=== PATIENT | male | born 1970 | race Caucasian/White ===

== ENCOUNTER 2017-10-15 18:43 | Emergency (ER) | payer SELFPAY ==
--- NOTE | 2017-10-15 19:29 | ER Document Report ---
HPI - HPI Patient complains to provider of: Groin and waist rash Onset: Other - 1.5 months Onset/Duration: Gradual Pain Level: 2 Context: 47-year-old male complaining of itchy skin rash that is from his waist to his upper thighs. He has tried everything that he knows of which is not helping. He did try antifungal cream which did not help. He has not seen a wealth management director. It itches 24 7. States it started after buying some underwear at [employer] Associated Symptoms: None Exacerbated by: Denies Relieved by: Denies Similar symptoms previously: No Recently seen / treated by doctor: No - ROS ROS below otherwise negative: Yes Systems Reviewed and Negative: Yes All other systems reviewed and negative Past Medical History - General Information source: Patient - Social History Smoking Status: Current Every Day Smoker Frequency of alcohol use: None Drug Abuse: None Lives with: Family Family History: Reviewed & Not Pertinent GI Medical History: Reports: Hx Cirrhosis - Hepatitis C Surgical Hx: Negative Vertical Provider Document - CONSTITUTIONAL Agree With Documented VS: Yes Exam Limitations: No Limitations - INFECTION CONTROL TRAVEL OUTSIDE OF THE [place] IN LAST 30 DAYS: No - HEENT HEENT: Normocephalic. negative: Conjuctival Injection - NECK Neck: Supple - MUSCULOSKELETAL/EXTREMETIES Musculoskeletal/Extremeties: MAEW - NEURO Level of Consciousness: Awake, Alert - DERM Integumentary: Rash - Buttocks and abdominal rash extending to the upper thighs excluding the penis and the scrotum, inflamed red rims-lacy type rash with clear centers Course - Vital Signs Vital signs: Temp Pulse Resp BP Pulse Ox 98.2 F 106 H 17 116/74 96 10/15/17 18:47 10/15/17 18:47 10/15/17 18:47 10/15/17 18:47 10/15/17 18:47 Discharge - Discharge Clinical Impression: Rash Condition: Good Disposition: HOME, SELF-CARE Instructions: Use of Diphenhydramine, Skin Fungus ([facility]), Steroid Medication Additional Instructions: Call and schedule appointment with wealth management director, he may do a skin scraping to confirm the diagnosis try over the counter antifungal cream to 1 lesion three times per day to see if it helps, for 1 week prednisone may calm the inflammation [id number] Benadryl for itching Return to the emergency room any concerns Since you have hepatitis C and cirrhosis the oral antifungals may not be indicated, discussed this with the wealth management director. Prescriptions: Prednisone [Deltasone 10 mg Tablet] 10 mg PO ASDIR PRN #21 tablet PRN Reason: Referrals: STEPHANIE MORROW DO [ACTIVE STAFF] - Follow up in 1 week
[2017-10-15] MEDS ORDERED: PREDNISONE 20 MG TABLET PO ONE (19:35)
[2017-10-15 19:59] VITALS: BP 144/91
== END 2017-10-15 19:58 | disposition home or self-care (01) ==
LOC: ER 18:43
DX: R21 Rash and other nonspecific skin eruption (principal); F17.200 Nicotine dependence, unspecified, uncomplicated
CPT/HCPCS: 99282; J7512

== ENCOUNTER 2017-11-30 14:28 | Emergency (ER) | payer SELFPAY ==
[2017-11-30 14:37] VITALS: BP 138/78
--- NOTE | 2017-11-30 14:37 | ER Document Report ---
HPI - HPI Patient complains to provider of: recurrent itchy rash Onset: Last week Onset/Duration: Gradual Pain Level: 3 Context: 47 yo male that I tx with prednisone in september for exzema type groin rash is back again with the recurrnet rash and now it is on anterior knees. He did not go to the phys assistant that I rec. No fever. Associated Symptoms: None Exacerbated by: Denies Relieved by: Other - steroid Similar symptoms previously: Yes Recently seen / treated by doctor: No - ROS ROS below otherwise negative: Yes Systems Reviewed and Negative: Yes All other systems reviewed and negative Past Medical History - General Information source: Patient - Social History Smoking Status: Current Every Day Smoker Frequency of alcohol use: None Drug Abuse: None Lives with: Spouse/Significant other Family History: Reviewed & Not Pertinent Renal/ Medical History: Denies: Hx Peritoneal Dialysis GI Medical History: Reports: Hx Cirrhosis - Hepatitis C Surgical Hx: Negative Vertical Provider Document - CONSTITUTIONAL Agree With Documented VS: Yes Exam Limitations: No Limitations General Appearance: No Apparent Distress - INFECTION CONTROL TRAVEL OUTSIDE OF THE [place] IN LAST 30 DAYS: No - HEENT HEENT: Normal ENT Exam, Normocephalic - NECK Neck: Supple - RESPIRATORY Respiratory: Breath Sounds Normal, No Respiratory Distress - CARDIOVASCULAR Cardiovascular: Regular Rate, Regular Rhythm - NEURO Level of Consciousness: Awake - DERM Integumentary: Rash - scaley red psoriasis or eczema to lower trunk and anterior knees. pruritic Discharge - Discharge Clinical Impression: Chronic rash Condition: Good Disposition: HOME, SELF-CARE Instructions: Atopic Dermatitis (Eczema) ([facility]), Itching, Nonspecific ([facility]), Psoriasis ([facility]), Steroid Medication Additional Instructions: Call and schedule an appointment with the phys assistant Charlie for itching Steroid cream Steroid taper Return to the emergency room for any concerns Prescriptions: Hydrocortisone Valerate 60 gm TP DAILY #60 oint..gm. Hydroxyzine Pamoate [Vistaril 50 mg Capsule] 50 mg PO TIDP PRN #60 capsule PRN Reason: Referrals: STEPHANIE MORROW DO [ACTIVE STAFF] - 12/01/17
[2017-11-30] MEDS ORDERED: PREDNISONE 20 MG TABLET PO ONE (15:19)
[2017-11-30] MEDS ORDERED: HYDROXYZINE PAMOATE 50 MG CAPSULE PO ONE (15:22)
== END 2017-11-30 15:38 | disposition home or self-care (01) ==
LOC: ER 14:28
DX: R21 Rash and other nonspecific skin eruption (principal); L29.8 Other pruritus; F17.200 Nicotine dependence, unspecified, uncomplicated
CPT/HCPCS: 99282; J7512

== ENCOUNTER 2017-12-29 17:20 | Emergency (ER) | payer SELFPAY ==
[2017-12-29 17:36] VITALS: BP 123/78
--- NOTE | 2017-12-29 18:03 | ER Document Report ---
HPI - HPI Patient complains to provider of: Persistent rash Onset: Other - Months Pain Level: 1 Context: 47-year-old male returns for persistent rash. I have seen 2 times before and he states the prednisone always resolve the rash. We discussed possible psoriasis and he has been unable to get an appointment with the business development coordinator. This rash looks a little different and there is itching the most at night. He is very frustrated. Associated Symptoms: None Exacerbated by: Denies Relieved by: Denies Similar symptoms previously: Yes Recently seen / treated by doctor: Yes - ROS ROS below otherwise negative: Yes Systems Reviewed and Negative: Yes All other systems reviewed and negative Past Medical History - General Information source: Patient - Social History Smoking Status: Unknown if Ever Smoked Frequency of alcohol use: None Drug Abuse: None Lives with: Family Family History: Reviewed & Not Pertinent Renal/ Medical History: Denies: Hx Peritoneal Dialysis GI Medical History: Reports: Hx Cirrhosis - Hepatitis C Surgical Hx: Negative Vertical Provider Document - CONSTITUTIONAL Agree With Documented VS: Yes Exam Limitations: No Limitations - INFECTION CONTROL TRAVEL OUTSIDE OF THE [place] IN LAST 30 DAYS: No - RESPIRATORY Respiratory: Breath Sounds Normal, No Respiratory Distress - CARDIOVASCULAR Cardiovascular: Regular Rate, Regular Rhythm - DERM Integumentary: Rash - Isolated red round lesions to both anterior knees, axillas , groin and buttocks. He states that sometimes he scratches them and gets liquid out of them. We discussed possible scabies or impetigo and treating him for both Course - Re-evaluation Re-evalutation: 12/29/17 18:00 I have seen this patient 2 other times the prednisone clears it up, today it looks more like possible scabies or impetigo he has it in his axilla or groin and anterior knees - Vital Signs Vital signs: Temp Pulse Resp BP Pulse Ox 98.2 F 89 16 123/78 97 12/29/17 17:35 12/29/17 17:35 12/29/17 17:35 12/29/17 17:35 12/29/17 17:35 Discharge - Discharge Clinical Impression: Rash, scabies versus impetigo Condition: Good Disposition: HOME, SELF-CARE Instructions: Anti-Mite Skin Creams, Cephalexin ([facility]), Impetigo ([facility]), Scabies ([facility]) Additional Instructions: Element cream from neck to toes in between her fingers and toes in the groin also, wash off in 12 hours Antibiotics in case this is secondary infection or impetigo Schedule an appointment with a business development coordinator Prescriptions: Cephalexin Monohydrate [Keflex 500 mg Capsule] 500 mg PO QID #28 capsule Permethrin [Elimite] 60 gm TP ONCE PRN 1 Days cream.gm. PRN Reason:
== END 2017-12-29 18:17 | disposition home or self-care (01) ==
LOC: ER 17:20
DX: R21 Rash and other nonspecific skin eruption (principal)
CPT/HCPCS: 99282

== ENCOUNTER 2018-01-17 04:25 | Emergency (ER) | payer SELFPAY ==
[2018-01-17] MEDS ORDERED: DIPHENHYDRAMINE HCL 50 MG CAPSULE PO ONE (06:20)
[2018-01-17] MEDS ORDERED: SULFAMETHOXAZOLE/TRIMETHOPRIM 800-160 MG TABLET PO ONE (06:20)
[2018-01-17] MEDS ORDERED: CEPHALEXIN 500 MG CAPSULE PO ONE (06:20)
[2018-01-17] MEDS ORDERED: FAMOTIDINE 20 MG TABLET PO ONE (06:21)
[2018-01-17] MEDS ORDERED: IBUPROFEN 800 MG TABLET PO ONE (06:21)
--- NOTE | 2018-01-17 06:22 | ER Document Report ---
ED Skin Rash/Insect Bite/Abscs - General Chief Complaint: Insect Bite Stated Complaint: POSSIBLE INSECT BITE Time Seen by Provider: 01/17/18 06:07 Notes: 47-year-old male to the emergency department chief complaint of possible bug bite versus cellulitis on the right upper extremity. States that he has been camping. Noticed some redness and swelling to the right forearm. Seems to be getting worse. TRAVEL OUTSIDE OF THE [place] IN LAST 30 DAYS: No - HPI Patient complains to provider of: Skin rash/lesion, Tender/swollen area, Insect bite Onset: Yesterday Onset/Duration: Gradual, Worse Quality of pain: Throbbing - Related Data Allergies/Adverse Reactions: No Known Allergies Allergy (Verified 11/30/17 14:33) Past Medical History - General Information source: Patient - Social History Smoking Status: Current Every Day Smoker Cigarette use (# per day): Yes Frequency of alcohol use: None Drug Abuse: Marijuana Lives with: Spouse/Significant other Family History: Reviewed & Not Pertinent Patient has suicidal ideation: No Patient has homicidal ideation: No - Medical History Medical History: Negative Renal/ Medical History: Denies: Hx Peritoneal Dialysis GI Medical History: Reports: Hx Cirrhosis - Hepatitis C Past Surgical History: Reports: Hx Cholecystectomy, Hx Orthopedic Surgery - Left hand Review of Systems - Review of Systems Constitutional: denies: Fever, Malaise, Weakness EENT: denies: Throat pain, Difficulty swallowing, Mouth pain Cardiovascular: denies: Chest pain, Palpitations, Heart racing Respiratory: denies: Hurts to breathe, Short of breath, Wheezing Musculoskeletal: See HPI. denies: Muscle pain, Muscle stiffness Skin: See HPI, Change in color, Lesions, Rash Physical Exam - Vital signs Vitals: Temp Pulse Resp BP Pulse Ox 98.2 F 96 18 134/79 H 98 01/17/18 04:34 01/17/18 04:34 01/17/18 04:34 01/17/18 04:34 01/17/18 04:34 Interpretation: Normal - General General appearance: Appears well, Alert - Respiratory Respiratory status: No respiratory distress Chest status: Nontender Breath sounds: Normal Chest palpation: Normal - Cardiovascular Rhythm: Regular Heart sounds: Normal auscultation Murmur: No - Extremities General upper extremity: Normal inspection, Nontender, Tender, Normal color, Normal ROM, Normal temperature, Other - Tenderness in the forearm area on the right General lower extremity: Normal inspection, Nontender, Normal color, Normal ROM , Normal temperature, Normal weight bearing. No: Amy's sign - Skin Skin Temperature: Warm Skin Moisture: Dry Skin Color: Other - Is a red, warm, indurated area measuring approximately 10 cm in diameter on the right forearm. There does not appear to be any abscess. No active drainage. No obvious bite hernandez. Patient does have psoriatic lesions on both knees and elbows. Course - Re-evaluation Re-evalutation: 01/17/18 06:25 At this time we will treat as a possible cellulitis. Cool compress, antibiotics , histamines, close observation of progression and return if getting worse. - Vital Signs Vital signs: Temp Pulse Resp BP Pulse Ox 98.2 F 96 18 134/79 H 98 01/17/18 04:34 01/17/18 04:34 01/17/18 04:34 01/17/18 04:34 01/17/18 04:34 Discharge - Discharge Clinical Impression: Cellulitis of arm, right Condition: Good Disposition: HOME, SELF-CARE Instructions: Cellulitis ([facility]) Additional Instructions: Keep a close eye on the lesion. If things are getting worse and spreading rapidly please return for repeat evaluation. Prescriptions: Cephalexin Monohydrate [Keflex 500 mg Capsule] 500 mg PO QID 7 Days #28 capsule Sulfamethoxazole/Trimethoprim [Bactrim Ds Tablet] 1 each PO BID 7 Days #14 tablet Forms: Return to Work
[2018-01-17 07:04] VITALS: BP 124/79
== END 2018-01-17 06:45 | disposition home or self-care (01) ==
LOC: ER 04:25
DX: L03.113 Cellulitis of right upper limb (principal); F17.210 Nicotine dependence, cigarettes, uncomplicated
CPT/HCPCS: 99282

== ENCOUNTER 2018-01-17 18:01 | Emergency (ER) | payer SELFPAY ==
[2018-01-17 18:08] VITALS: BP 121/63
[2018-01-17] MEDS ORDERED: VANCOMYCIN HCL INJ 1000 MG VIAL IV ONE (19:05)
--- NOTE | 2018-01-17 19:07 | ER Document Report ---
ED Medical Screen (RME) - General Chief Complaint: Skin Problem Stated Complaint: ARM SWOLLEN/RED Time Seen by Provider: 01/17/18 19:03 Mode of Arrival: Ambulatory Information source: Patient Notes: This is a 47-year-old man with a history of GERD, psoriasis, 2 pack per day smoker presents to the emergency room with worsening cellulitis of the right forearm. Patient states he was camping and started developing redness of the right arm. He was seen this morning and placed on oral antibiotics and the area of erythema was marked off. He presents back to the emergency room with spreading redness beyond limits of the boundary marked as well as increased pain. Patient does have erythema and warmth over the area as well as a possible puncture kindra and he has an area of induration and tenderness concerning for developing abscess. TRAVEL OUTSIDE OF THE [place] IN LAST 30 DAYS: No - Related Data Allergies/Adverse Reactions: No Known Allergies Allergy (Verified 01/17/18 18:02) Past Medical History Renal/ Medical History: Denies: Hx Peritoneal Dialysis GI Medical History: Reports: Hx Cirrhosis - Hepatitis C Past Surgical History: Reports: Hx Cholecystectomy, Hx Orthopedic Surgery - Left hand Physical Exam - Vital signs Vitals: Temp Pulse Resp BP Pulse Ox 98.1 F 90 18 121/63 96 01/17/18 18:07 01/17/18 18:07 01/17/18 18:07 01/17/18 18:07 01/17/18 18:07 Course - Vital Signs Vital signs: Temp Pulse Resp BP Pulse Ox 98.1 F 90 18 121/63 96 01/17/18 18:07 01/17/18 18:07 01/17/18 18:07 01/17/18 18:07 01/17/18 18:07
[2018-01-17 19:51] LABS: ABSOLUTE EOSINOPHILS # (AUTO) 0.3 10^3/uL (0.0-0.6); ABSOLUTE MONOCYTES (AUTO) 0.8 10^3/uL (0.1-1.4); ABSOLUTE NEUT (AUTO) 7.5 10^3/uL (1.7-8.2); BASOPHILS % (AUTO) 0.4 % (0-2); EOSINOPHILS % (AUTO) 2.4 % (0-6); HEMATOCRIT 41.4 % (37.9-51.0); HEMOGLOBIN 14.2 g/dL (13.5-17.0); LYMPHOCYTES % (AUTO) 18.5 % (13-45); MEAN CORPUSCULAR HEMOGLOBIN 30.8 pg (27.0-33.4); MEAN CORPUSCULAR HGB CONC 34.4 g/dL (32.0-36.0); MEAN CORPUSCULAR VOLUME 90 fl (80-97); MONOCYTES % (AUTO) 7.6 % (3-13); PLATELET COUNT 316 10^3/uL (150-450); RED BLOOD COUNT 4.62 10^6/uL (4.35-5.55); SEGMENTED NEUTROPHILS % (AUTO) 71.1 % (42-78); TOTAL CELLS COUNTED % (AUTO) 100 %; WHITE BLOOD COUNT 10.6 10^3/uL (4.0-10.5)
[2018-01-17] MEDS ORDERED: MORPHINE SULFATE 10 MG/ML INJ IV ONE ×2 (19:54→21:45)
[2018-01-17] MEDS ORDERED: ONDANSETRON HCL INJ/PF 4 MG/2 ML SDV IV ONE (19:54)
[2018-01-17 20:06] LABS: ALANINE AMINOTRANSFERASE 54 U/L (21-72); ALBUMIN 3.8 g/dL (3.5-5.0); ALKALINE PHOSPHATASE 212 U/L (38-126); ANION GAP 10 (5-19); ASPARTATE AMINO TRANSFERASE 30 U/L (17-59); BILIRUBIN,DIRECT 0.2 mg/dL (0.0-0.4); BILIRUBIN,TOTAL 0.7 mg/dL (0.2-1.3); BLOOD UREA NITROGEN 14 mg/dL (7-20); CARBON DIOXIDE 24 mmol/L (22-30); CHLORIDE 106 mmol/L (98-107); GLUCOSE 92 mg/dL (75-110); POTASSIUM 4.2 mmol/L (3.6-5.0); SODIUM 139.9 mmol/L (137-145); TOTAL PROTEIN 6.9 g/dL (6.3-8.2)
--- NOTE | 2018-01-17 23:11 | RADIOLOGY REPORT (SQ) ---
EXAM DESCRIPTION: US EXTREMITY MUSCULOSKELETAL LIMITED COMPLETED DATE/TME: 01/17/2018 19:53 CLINICAL HISTORY: 47 years, Male, right forearm edema and erythema. COMPARISON: None. TECHNIQUE: Real-time sonographic images of the right forearm obtained. FINDINGS: In the right forearm there is subcutaneous edema. No well-defined fluid collection. Mild increased vascularity on incidental color Doppler imaging. IMPRESSION: 1. Edema and increased vascularity of the soft tissues of the forearm could be seen with cellulitis. 2. No well-defined fluid collection to suggest abscess formation at this time 2010 [employer]- All Rights Reserved
--- NOTE | 2018-01-17 23:22 | ER Document Report ---
ED Skin Rash/Insect Bite/Abscs <VISHAL JIN - Last Filed: 01/17/18 23:24> - General Mode of Arrival: Ambulatory Information source: Patient TRAVEL OUTSIDE OF THE [place] IN LAST 30 DAYS: No <MIRIAM LINN - Last Filed: 01/18/18 01:45> - General Chief Complaint: Skin Problem Stated Complaint: ARM SWOLLEN/RED Time Seen by Provider: 01/17/18 19:03 Notes: 47-year-old male who presents to the emergency department today with complaints of an infection to his right elbow. Patient was seen here yesterday and had the outline of the infection marked with a marker and the infection has spread significantly past these markings. Patient states the pain has increased. (MIRIAM LINN) - Related Data Allergies/Adverse Reactions: No Known Allergies Allergy (Verified 01/17/18 18:02) Past Medical History - General Information source: Patient - Social History Smoking Status: Current Every Day Smoker Cigarette use (# per day): Yes Chew tobacco use (# tins/day): No Frequency of alcohol use: None Drug Abuse: None Lives with: Family Family History: Reviewed & Not Pertinent Patient has suicidal ideation: No Patient has homicidal ideation: No Renal/ Medical History: Denies: Hx Peritoneal Dialysis GI Medical History: Reports: Hx Cirrhosis - Hepatitis C Past Surgical History: Reports: Hx Cholecystectomy, Hx Orthopedic Surgery - Left hand <MIRIAM LINN - Last Filed: 01/18/18 01:45> Review of Systems - Review of Systems Constitutional: No symptoms reported EENT: No symptoms reported Cardiovascular: No symptoms reported Respiratory: No symptoms reported Gastrointestinal: No symptoms reported Genitourinary: No symptoms reported Male Genitourinary: No symptoms reported Musculoskeletal: No symptoms reported Skin: See HPI, Other - Right elbow redness/pain Hematologic/Lymphatic: No symptoms reported Neurological/Psychological: No symptoms reported -: Yes All other systems reviewed and negative <MIRIAM LINN - Last Filed: 01/18/18 01:45> Physical Exam - Extremities General upper extremity: Other - Right proximal forearm the volar aspect is a large erythematous area, there is a purple drawling around it from earlier today and the erythema has spread beyond that drawing. There is a central area that is indurated and quite tender. It almost appears to be starting point, but I cannot be sure of any fluctuance. I did have an ultrasound done that showed the cellulitis but no fluid collection at this point. <VISHAL JIN - Last Filed: 01/17/18 23:24> <MIRIAM LINN - Last Filed: 01/18/18 01:45> - Vital signs Vitals: Temp Pulse Resp BP Pulse Ox 98.1 F 90 18 121/63 96 01/17/18 18:07 01/17/18 18:07 01/17/18 18:07 01/17/18 18:07 01/17/18 18:07 - Notes Notes: Physical Exam: General: Alert, appears well. HEENT: Normocephalic. Atraumatic. PERRL. Extraocular movements intact. Oropharynx clear. Neck: Supple. Non-tender. Respiratory: No respiratory distress. Clear and equal breath sounds bilaterally. Cardiovascular: Regular rate and rhythm. Abdominal: Normal Inspection. Non-tender. No distension. Normal Bowel Sounds. Back: Non-tender. No deformity or step off. Extremities: Moves all four extremities. Upper extremities: Lower extremities: Normal inspection. No edema. Normal ROM. Neurological: Normal cognition. AAOx4. Normal speech. Psychological: Normal affect. Normal Mood. Skin: Warm. Dry. Normal color. (MIRIAM LINN) Course - Laboratory Result Diagrams: 01/17/18 19:22 01/17/18 19:22 <VISHAL JIN - Last Filed: 01/17/18 23:24> - Laboratory Result Diagrams: 01/17/18 19:22 01/17/18 19:22 <MIRIAM LINN - Last Filed: 01/18/18 01:45> - Re-evaluation Re-evalutation: 01/17/18 23:23 The nurse told me the patient was going to leave while I was waiting for the ultrasound report. I told her I would get to him as soon as I could get freed up from some other more pressing patient issues. I was just going to see the patient in the room and found the cleaning people in there, and the nurse had a signed AMA form. I did not get a chance to speak with the patient and tell him what the ultrasound showed, the treatment plan should be, or provide him any pain medications to take. (VISHAL JIN) - Vital Signs Vital signs: Temp Pulse Resp BP Pulse Ox 98.1 F 90 18 121/63 96 01/17/18 18:07 01/17/18 18:07 01/17/18 18:07 01/17/18 18:07 01/17/18 18:07 - Laboratory Laboratory results interpreted by me: 01/17/18 01/17/18 19:22 19:22 WBC 10.6 H Alkaline Phosphatase 212 H Discharge <VISHAL JIN - Last Filed: 01/17/18 23:24> <MIRIAM LINN - Last Filed: 01/18/18 01:45> - Discharge Clinical Impression: Right arm cellulitis Condition: Stable Disposition: AGAINST MEDICAL ADVICE Scribe Attestation: 01/17/18 23:23 I personally performed the services described in the documentation, reviewed and edited the documentation which was dictated to the scribe in my presence, and it accurately records my words and actions. (VISHAL JIN) Scribe Documentation - Scribe Written by Jose F:: Jose F Coyle, 01/18/2018 [id number] acting as scribe for :: Leif <MIRIAM LINN - Last Filed: 01/18/18 01:45>
== END 2018-01-17 23:05 | disposition left against medical advice (07) ==
LOC: ER 18:01
DX: L03.113 Cellulitis of right upper limb (principal); F17.210 Nicotine dependence, cigarettes, uncomplicated; Z53.20 Procedure and treatment not carried out because of patient's decision for unspecified reasons
CPT/HCPCS: 96376; 99281; 96375; 96365; 36415; 87040; 85025; 80053; 83605; 76882; J2270; J2405; J3370

== ENCOUNTER 2018-01-18 16:59 | Inpatient (IN) | payer SELFPAY ==
[2018-01-18] MEDS ORDERED: VANCOMYCIN HCL INJ 1000 MG VIAL IV ONE ×2 (18:22→19:29)
[2018-01-18] MEDS ORDERED: HYDROMORPHONE HCL INJ/PF 2 MG/ML AMPULE IV ONE (18:23)
[2018-01-18] MEDS ORDERED: ONDANSETRON HCL INJ/PF 4 MG/2 ML SDV IV ONE (18:23)
--- NOTE | 2018-01-18 18:27 | ER Document Report ---
ED Medical Screen (RME) - General Chief Complaint: Arm Pain Stated Complaint: ARM PAIN/SWELLING Time Seen by Provider: 01/18/18 18:22 Mode of Arrival: Ambulatory Information source: Patient Notes: This is a 47-year-old man that presents to the emergency room with increasing pain and redness of the right arm and infection. TRAVEL OUTSIDE OF THE [place] IN LAST 30 DAYS: No - Related Data Allergies/Adverse Reactions: No Known Allergies Allergy (Verified 01/17/18 18:02) Past Medical History - Social History Chew tobacco use (# tins/day): No Frequency of alcohol use: None Drug Abuse: None Renal/ Medical History: Denies: Hx Peritoneal Dialysis GI Medical History: Reports: Hx Cirrhosis - Hepatitis C Past Surgical History: Reports: Hx Cholecystectomy, Hx Orthopedic Surgery - Left hand Physical Exam - Vital signs Vitals: Temp Pulse Resp BP Pulse Ox 98.9 F 101 H 18 143/75 H 98 01/18/18 17:25 01/18/18 17:25 01/18/18 17:25 01/18/18 17:25 01/18/18 17:25 Course - Vital Signs Vital signs: Temp Pulse Resp BP Pulse Ox 98.9 F 101 H 18 143/75 H 98 01/18/18 17:25 01/18/18 17:25 01/18/18 17:25 01/18/18 17:25 01/18/18 17:25
[2018-01-18 19:28] LABS: ABSOLUTE BASOPHILS # (AUTO) 0.1 10^3/uL (0.0-0.2); ABSOLUTE EOSINOPHILS # (AUTO) 0.1 10^3/uL (0.0-0.6); ABSOLUTE LYMPHOCYTES (AUTO) 1.8 10^3/uL (0.5-4.7); ABSOLUTE MONOCYTES (AUTO) 0.9 10^3/uL (0.1-1.4); ABSOLUTE NEUT (AUTO) 14.2 10^3/uL (1.7-8.2); BASOPHILS % (AUTO) 0.6 % (0-2); EOSINOPHILS % (AUTO) 0.5 % (0-6); HEMATOCRIT 41.1 % (37.9-51.0); HEMOGLOBIN 14.2 g/dL (13.5-17.0); LYMPHOCYTES % (AUTO) 10.4 % (13-45); MEAN CORPUSCULAR HGB CONC 34.5 g/dL (32.0-36.0); MEAN CORPUSCULAR VOLUME 90 fl (80-97); PLATELET COUNT 358 10^3/uL (150-450); RED BLOOD COUNT 4.58 10^6/uL (4.35-5.55); SEGMENTED NEUTROPHILS % (AUTO) 83.5 % (42-78); TOTAL CELLS COUNTED % (AUTO) 100 %
[2018-01-18] MEDS ORDERED: CEFEPIME 2 GM/D5W RTU 2 GM/50 ML RTUPB IV ONE (19:30)
--- NOTE | 2018-01-18 19:32 | ER Document Report ---
ED Extremity Problem, Upper - General Chief Complaint: Arm Pain Stated Complaint: ARM PAIN/SWELLING Time Seen by Provider: 01/18/18 18:22 Mode of Arrival: Ambulatory Notes: Patient is a 47-year-old male comes emergency department for chief complaint of infection to the right arm near the elbow, he was seen initially for this 2 days ago, started on Bactrim and Keflex, states he has been taking them, the area was traced about the redness has spread outside of this area. He was seen again yesterday and had an ultrasound which did not show abscess. He states today he started having increased pain to the area and started having shaking chills. He denies history of the same, denies history of diabetes, he is unsure of what happened but he does work in the [employer]. He denies any daily medications except for Prilosec, past medical history includes hep C, cholecystitis. He denies any drug abuse, he does smoke. TRAVEL OUTSIDE OF THE [place] IN LAST 30 DAYS: No - Related Data Allergies/Adverse Reactions: No Known Allergies Allergy (Verified 01/18/18 19:20) Past Medical History - General Information source: Patient - Social History Smoking Status: Current Every Day Smoker Chew tobacco use (# tins/day): No Smoking Education Provided: Yes - <3 min Frequency of alcohol use: None Drug Abuse: None Lives with: Alone Family History: Reviewed & Not Pertinent Patient has suicidal ideation: No Patient has homicidal ideation: No Pulmonary Medical History: Reports: Hx Asthma Renal/ Medical History: Denies: Hx Peritoneal Dialysis GI Medical History: Reports: Hx Cirrhosis - Hepatitis C, Hx Gastroesophageal Reflux Disease Past Surgical History: Reports: Hx Cholecystectomy, Hx Orthopedic Surgery - Left hand - Immunizations Hx Diphtheria, Pertussis, Tetanus Vaccination: Yes Review of Systems - Review of Systems Constitutional: No symptoms reported EENT: No symptoms reported Cardiovascular: No symptoms reported Respiratory: No symptoms reported Gastrointestinal: No symptoms reported Genitourinary: No symptoms reported Male Genitourinary: No symptoms reported Musculoskeletal: See HPI Skin: See HPI Hematologic/Lymphatic: No symptoms reported Neurological/Psychological: No symptoms reported Physical Exam - Vital signs Vitals: Temp Pulse Resp BP Pulse Ox 98.9 F 101 H 18 143/75 H 98 01/18/18 17:25 01/18/18 17:25 01/18/18 17:25 01/18/18 17:25 01/18/18 17:25 - Notes Notes: GENERAL: Alert, interacts well. No acute distress. HEAD: Normocephalic, atraumatic. EYES: Pupils equal, round, and reactive to light. Extraocular movements intact. ENT: Oral mucosa moist, tongue midline. NECK: Full range of motion. Supple. Trachea midline. LUNGS: A few scattered soft expiratory wheezes, no tachypnea, no decreased breath sounds, rales, or rhonchi. No respiratory distress. HEART: Borderline tachycardic, no murmur ABDOMEN: Soft, non-tender. Non-distended. Bowel sounds present in all 4 quadrants. EXTREMITIES: There is swelling of the soft tissue noted in the right distal arm and proximal forearm with erythema, heat, and tenderness. There is no fluctuant area. Patient can still flex and extend the elbow normally. Distal neurovascular exam unremarkable. BACK: no cervical, thoracic, lumbar midline tenderness. No saddle anesthesia, normal distal neurovascular exam. NEUROLOGICAL: Alert and oriented x3. Normal speech. [cranial nerves II through XII grossly intact]. PSYCH: Normal affect, normal mood. SKIN: Warm, dry, normal turgor. No rashes or lesions noted. Course - Re-evaluation Re-evalutation: Infection/cellulitis has clearly spread outside of the borders of the trace to the area of initial infection, patient reporting chills, he now has leukocytosis at 17,000 with elevated neutrophils, no bands. Borderline tachycardia, no hypotension, no fever here. I do not see any area of fluctuance suggesting abscess, he does not have difficulty bending his elbow, low suspicion of septic joint. Concern because of failure of outpatient therapy with worsening cellulitis. IV antibiotics initiated. CAT scan from triage does not show any drainable abscess, fluid collection, foreign body, or any specific concerning findings other than subcutaneous swelling. Discussed with patient. Recommended admission to the hospital for failure of outpatient treatment of worsening cellulitis. Patient states agreement with this plan. Discussed with Dr. Hilton, hospitalist, patient will be admitted to telemetry full admission. - Vital Signs Vital signs: Temp Pulse Resp BP Pulse Ox 98.9 F 101 H 18 143/75 H 98 01/18/18 17:25 01/18/18 17:25 01/18/18 17:25 01/18/18 17:25 01/18/18 17:25 - Laboratory Result Diagrams: 01/18/18 19:07 01/18/18 19:07 Laboratory results interpreted by me: 01/18/18 01/18/18 19:07 19:07 WBC 17.0 H Seg Neutrophils % 83.5 H Lymphocytes % 10.4 L Absolute Neutrophils 14.2 H Alkaline Phosphatase 204 H C-Reactive Protein 62.0 H Discharge - Discharge Clinical Impression: Cellulitis of arm, right Condition: Stable Disposition: ADMITTED INPATIENT Admitting Provider: Hospitalist Unit Admitted: Telemetry
[2018-01-18 19:49] LABS: ALANINE AMINOTRANSFERASE 51 U/L (21-72); ALBUMIN 4.2 g/dL (3.5-5.0); ALKALINE PHOSPHATASE 204 U/L (38-126); ANION GAP 13 (5-19); ASPARTATE AMINO TRANSFERASE 29 U/L (17-59); BILIRUBIN,DIRECT 0.3 mg/dL (0.0-0.4); BILIRUBIN,TOTAL 0.5 mg/dL (0.2-1.3); BLOOD UREA NITROGEN 16 mg/dL (7-20); CALCIUM 9.1 mg/dL (8.4-10.2); CARBON DIOXIDE 23 mmol/L (22-30); CHLORIDE 103 mmol/L (98-107); GLUCOSE 88 mg/dL (75-110); POTASSIUM 4.3 mmol/L (3.6-5.0); SODIUM 139.4 mmol/L (137-145); TOTAL PROTEIN 7.4 g/dL (6.3-8.2)
[2018-01-18] MEDS ORDERED: FENTANYL CITRATE INJ/PF 100 MCG/2 ML AMPUL IV ONE (20:18)
--- NOTE | 2018-01-18 20:33 | RADIOLOGY REPORT (SQ) ---
EXAM DESCRIPTION: CT RT UPPER EXTREMITY WITH COMPLETED DATE/TIME: 01/18/2018 8:10 pm REASON FOR STUDY: right arm infection COMPARISON: None. TECHNIQUE: Postcontrast axial imaging performed through the right elbow with reformatted coronal and sagittal imaging windowed for bone and soft tissues. Images saved to PACS. 3D IMAGING: Were 3D images as MIP, SSD, or volume rendering performed at the work station? Yes. All CT scanners at this facility use dose modulation, iterative reconstruction, and/or weight based d osing when appropriate to reduce radiation dose to as low as reasonably achievable (ALARA). [facility]: Dose Right [facility]: CareDose [facility]: Dose Right [facility]: Teradose 4D [facility]: GRID CONTRAST TYPE AND DOSE: contrast/concentration: Isovue 370.00 mg/ml; Total Contrast Delivered: 50.0 ml; Total Saline Delivered: 60.0 ml RENAL FUNCTION: GFR > 60. LIMITATIONS: None. RADIATION DOSE: CT Rad equipment meets quality standard of care and radiation dose reduction techniq ues were employed. CTDIvol: 2.6 mGy. DLP: 96 mGy-cm.mGy. FINDINGS: SOFT TISSUES: Dorsal subcutaneous swelling. No radiopaque foreign body. BONES: No acute fracture. No dislocation. MINERALIZATION: Normal. ENHANCEMENT: No abnormal enhancement. OTHER: No other significant finding. IMPRESSION: No fluid collection or radiopaque foreign body.No abnormal enhancement. TECHNICAL DOCUMENTATION: JOB ID: [id number] Quality ID # [id number]: Final reports with documentation of one or more dose reduction techniques (e.g., Au tomated exposure control, adjustment of the mA and/or kV according to patient size, use of iterative reconstruction technique) 2010 [employer]- All Rights Reserved Reading location - IP/workstation name: [email or web address]
[2018-01-18] MEDS ORDERED: NORMAL SALINE 1000 ML 1,000 ML IV ONE (20:58)
[2018-01-18] MEDS ORDERED: HYDROMORPHONE HCL INJ/PF 2 MG/ML AMPULE IV PRN (22:59)
[2018-01-18] MEDS ORDERED: VANCOMYCIN HCL 0 MG in DEXTROSE 5%-WATER 250 ML IV NR (23:00)
[2018-01-18] MEDS ORDERED: HYDROMORPHONE HCL INJ/PF 2 MG/ML AMPULE ONE (23:09)
[2018-01-18] MEDS ORDERED: IBUPROFEN 800 MG TABLET PO SCH (23:15)
[2018-01-18] MEDS ORDERED: VANCOMYCIN HCL INJ 1000 MG VIAL IV PRN (23:24)
[2018-01-19] MEDS: ALPRAZOLAM 0.5 MG TABLET PO PRN ×2 (00:16→22:04)
[2018-01-19] MEDS ORDERED: NICOTINE 21 MG/24 HR PATCH.TD24 TD ONE (01:30)
--- NOTE | 2018-01-19 02:28 | PDOC H&P ---
History of Present Illness Admission Date/PCP: 01/18/18 21:07 Patient complains of: Right arm pain and redness History of Present Illness: EMELYN BRAVO JR is a 47 year old man who has hepatitis C and GERD. He has been into the ER twice in the past few days with right elbow cellulitis. Several days ago he was started on Bactrim and Keflex. He came back into the ER the day prior to admission with worsening symptoms. His sister tells me that he received a dose of vancomycin which seemed to have improved the redness for short period of time. He was discharged home after an ultrasound showed no abscess. He came back in today because the redness was spreading and the pain got worse. CT of the arm was done and there is no fluid collection seen. Patient is being admitted to the hospitalist service with worsening cellulitis having failed outpatient antibiotic therapy and also with significant pain related to the infection, which possibly includes an early abscess. The etiology of his cellulitis is not quite clear. 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 He has multiple bite hernandez from various insects to which he is exposed in the [employer]. Past Medical History Cardiac Medical History: Denies: Coronary Artery Disease, Peripheral Vascular Disease Pulmonary Medical History: Reports: Asthma Denies: Chronic Obstructive Pulmonary Disease (COPD) EENT Medical History: Denies: Eyes Neurological Medical History: Denies: Ischemic CVA Endocrine Medical History: Denies: Diabetes Mellitus Type 2 Renal/ Medical History: Denies: Chronic Kidney Disease, End Stage Renal Disease Malignancy Medical History: Denies: None GI Medical History: Reports: Cirrhosis - Hepatitis C, Gastroesophageal Reflux Disease Musculoskeltal Medical History: Denies: Arthritis Skin Medical History: Denies: Eczema, Psoriasis, Other - Lesions over the knees and unclear etiology Psychiatric Medical History: Reports: Substance Abuse, Tobacco Dependency Denies: Alcohol Dependency, Depression, General Anxiety Disorder Traumatic Medical History: Denies: None Infectious Medical History: Reports: Hepatitis C Past Surgical History Past Surgical History: Reports: Cholecystectomy, Orthopedic Surgery - Left hand Social History Information Source: Patient Lives with: Alone Smoking Status: Current Every Day Smoker Cigarettes Packs Per Day: 2 Frequency of Alcohol Use: None Hx Recreational Drug Use: Yes Drugs: Heroin, Other - Methamphetamine and other IV drugs Hx Prescription Drug Abuse: Yes Past Social History Note: Patient reports a long history of IV drug abuse. He, in the past, was clean for 9 years and then started using again. At that time due to his significant drug abuse his and children left him. He lost his financial security as well. Secondary to an overdose he quit using IV drugs 3 years ago and has been sober almost 3 years. In May of this year he will be 3 years sober. 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 - Advance Directive Resuscitation Status: Full Code Surrogate healthcare decision maker:: Yousif Hoffman, his first cousin. Family History Family History: CAD, DM Parental Family History Reviewed: Yes - Father with diabetes and heart disease Children Family History Reviewed: Yes - He has healthy children Sibling(s) Family History Reviewed.: Yes - 1 sister with IV drug use history and a brother with diabetes Medication/Allergy Home Medications: Prednisone [Deltasone 10 mg Tablet] 10 mg PO ASDIR PRN #21 tablet 10/15/17 Hydrocortisone Valerate 60 gm TP DAILY #60 oint..gm. 11/30/17 Hydroxyzine Pamoate [Vistaril 50 mg Capsule] 50 mg PO TIDP PRN #60 capsule 11/30 Permethrin [Elimite] 60 gm TP ONCE PRN 1 Days cream.gm. 12/29/17 Cephalexin Monohydrate [Keflex 500 mg Capsule] 500 mg PO QID 7 Days #28 capsule 01/17/18 Sulfamethoxazole/Trimethoprim [Bactrim Ds Tablet] 1 each PO BID 7 Days #14 tablet 01/17/18 Allergies/Adverse Reactions: No Known Allergies Allergy (Verified 01/18/18 19:20) Review of Systems Constitutional: PRESENT: chills, fatigue. ABSENT: anorexia, fever(s) Eyes: ABSENT: visual disturbances Ears: ABSENT: hearing changes Nose, Mouth, and Throat: ABSENT: sore throat Cardiovascular: ABSENT: chest pain, dyspnea on exertion, edema Respiratory: ABSENT: cough, dyspnea, sputum Gastrointestinal: ABSENT: abdominal pain, constipation, diarrhea, nausea, vomiting Genitourinary: ABSENT: difficulty urinating, dysuria Musculoskeletal: PRESENT: joint swelling Integumentary: PRESENT: erythema, lesions, pruritus, wounds Neurological: ABSENT: confusion, dizziness, frequent falls, numbness, syncope, tingling Psychiatric: ABSENT: anxiety, depression Endocrine: ABSENT: cold intolerance, heat intolerance Hematologic/Lymphatic: ABSENT: easy bleeding, easy bruising Allergic/Immunologic: ABSENT: seasonal rhinorrhea Physical Exam Vital Signs: Temp Pulse Resp BP Pulse Ox 99.8 F 85 19 133/82 H 97 01/18/18 23:01 01/18/18 23:01 01/18/18 23:01 01/18/18 23:01 01/18/18 23:01 Intake & Output 01/17/18 01/18/18 01/19/18 06:59 06:59 06:59 Intake Total 50 Balance 50 Weight 114.8 kg General appearance: PRESENT: no acute distress, cooperative Head exam: PRESENT: atraumatic, normocephalic Eye exam: PRESENT: EOMI. ABSENT: conjunctival injection, scleral icterus Ear exam: PRESENT: normal external ear exam Mouth exam: PRESENT: moist, neck supple, tongue midline Neck exam: ABSENT: lymphadenopathy Respiratory exam: PRESENT: clear to auscultation henrietta, unlabored. ABSENT: rales , rhonchi, wheezes Cardiovascular exam: PRESENT: RRR. ABSENT: systolic murmur Pulses: PRESENT: normal radial pulses GI/Abdominal exam: PRESENT: normal bowel sounds, soft. ABSENT: ascites, distended, firm, guarding, tenderness Rectal exam: PRESENT: deferred Gentrourinary exam: ABSENT: indwelling catheter Extremities exam: PRESENT: tenderness, +1 edema, other - Right arm with erythema edema and tenderness to palpation around the elbow Neurological exam: PRESENT: alert, awake, oriented to person, oriented to place , oriented to situation, CN II-XII grossly intact Psychiatric exam: PRESENT: appropriate affect. ABSENT: anxious Skin exam: PRESENT: dry, erythema, intact, warm, other - Patient has multiple pustules in various states of development over his bilateral knees and hands. Also excoriations over punctate erythematous lesions on the legs.. ABSENT: jaundice Results Impressions: Upper Extremity CT 01/18/18 18:24 IMPRESSION: No fluid collection or radiopaque foreign body.No abnormal enhancement. Assessment & Plan - Diagnosis (1) Cellulitis of arm, right Is this a current diagnosis for this admission?: Yes Plan: Patient has failed outpatient Keflex and Bactrim and is being admitted to the hospitalist service with worsening cellulitis of the right upper extremity. Original etiology not clear though he does work in the [employer] there are multiple possibilities here. Secondary to significant erythema tenderness edema and induration patient is being placed on IV vancomycin and IV cefepime. Has leukocytosis. Lactic acid level is pending. He will be on IV fluids. CT scan of the arm in the ER did not show fluid collection though he may have an early developing abscess based on his exam. Blood cultures are pending as well. (2) Hepatitis C Is this a current diagnosis for this admission?: Yes Plan: Patient has hep C, secondary to IV drug abuse, and has been diagnosed for several years. He states that he also has cirrhosis. He was not treated for hep C as he was still actively using though is now almost 3 years sober and I encouraged him, highly recommended to him, that he seek care with a billing auditor to see if he is a treatment candidate. (3) Skin lesions Is this a current diagnosis for this admission?: Yes Plan: Patient has pustules over the hands and knees bilaterally. I see on his medication list that he has been treated for scabies recently. It seems that this did not change the lesions. He is also been on topical and oral steroids and he states these have had no effect. 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 We discussed that if it is treatment of the hep C would be the treatment for the skin condition. Again I encouraged him to seek care for his hep C. He has other lesions with excoriations over the legs and these appear to be insect bites. (4) Acute pain Is this a current diagnosis for this admission?: Yes Plan: Patient has high tolerance for opioids secondary to his long history of substance abuse. He received 100 mcg of fentanyl in the ER for his right arm pain which did not change the pain. He received 1 mg of Dilaudid for the pain and he did have a little bit of an effect there. I have ordered 2 mg of IV Dilaudid every 6 hours as needed pain. I have also ordered ibuprofen 800 mg p.o. every 8 hours scheduled for 2 days. The patient states very clearly that he does not want to be discharged on opioids. (5) Substance use disorder Is this a current diagnosis for this admission?: Yes Plan: Patient has had several stretches of sobriety over the past 10-15 years. He is almost 3 years clean, and I congratulated him. His sister is at the bedside and she has been 2 years clean. The patient states very clearly that he does not want to be discharged on opioid pain medications. We have agreed that if he needs opioids for severe pain while admitted to the hospital then we can use those. I have started ibuprofen for the inflammation and pain as well in an attempt to minimize opioid use. Secondary to his cirrhosis will not use Tylenol. - Time Time Spent: 50 to 70 Minutes Medications reviewed and adjusted accordingly: Yes - Inpatient Certification Based on my medical assessment, after consideration of the patient's comorbidities, presenting symptoms, or acuity I expect that the services needed warrant INPATIENT care.: Yes Medical Necessity: Need for IV Antibiotics
[2018-01-19] MEDS: NORMAL SALINE 1000 ML 1,000 ML IV PRN ×2 (03:01→12:51)
[2018-01-19] MEDS ORDERED: HYDROMORPHONE HCL INJ/PF 2 MG/ML AMPULE ONE (04:30)
[2018-01-19 04:52] LABS: HEMOGLOBIN 12.5 g/dL (13.5-17.0); MEAN CORPUSCULAR HGB CONC 34.6 g/dL (32.0-36.0); MEAN CORPUSCULAR VOLUME 90 fl (80-97); PLATELET COUNT 285 10^3/uL (150-450); RED BLOOD COUNT 4.02 10^6/uL (4.35-5.55); RED CELL DISTRIBUTION WIDTH 13.1 % (11.5-14.0); WHITE BLOOD COUNT 12.7 10^3/uL (4.0-10.5)
[2018-01-19 05:09] LABS: ANION GAP 11 (5-19); BLOOD UREA NITROGEN 12 mg/dL (7-20); CALCIUM 8.3 mg/dL (8.4-10.2); CARBON DIOXIDE 23 mmol/L (22-30); CHLORIDE 104 mmol/L (98-107); GLUCOSE 88 mg/dL (75-110); POTASSIUM 4.2 mmol/L (3.6-5.0); SODIUM 137.6 mmol/L (137-145)
[2018-01-19] MEDS: HEPARIN SOD (PORCINE) 5,000 UNIT/ML 1 ML SYRINGE SUBCUT SCH ×3 (06:28→22:05)
[2018-01-19] MEDS: IBUPROFEN 800 MG TABLET PO SCH ×3 (06:29→22:05)
[2018-01-19] MEDS ORDERED: VANCOMYCIN HCL INJ 1000 MG VIAL IV SCH (08:00)
[2018-01-19] MEDS: CEFEPIME 1 GM/D5W RTU 1 GM/50 ML RTUPB IV SCH ×2 (08:19→17:03)
[2018-01-19] MEDS: ONDANSETRON 4 MG TAB.RAPDIS PO PRN ×3 (08:23→23:02)
[2018-01-19] MEDS: HYDROMORPHONE HCL INJ/PF 2 MG/ML AMPULE IV PRN ×3 (09:21→19:51)
[2018-01-19] MEDS: VANCOMYCIN HCL 1,500 MG in DEXTROSE 5%-WATER 250 ML IV SCH ×2 (10:27→18:37)
--- NOTE | 2018-01-19 13:59 | PDOC PROGRESS REPORT ---
Subjective Progress Note for:: 01/19/18 Subjective:: No adverse events overnight. No new complaints. Vital signs been stable. 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 He has not noticed any exudates. No fevers or chills. He says he does have a general malaise. Reason For Visit: LEFT ARM CELLULITIS Physical Exam Vital Signs: Temp Pulse Resp BP Pulse Ox 97.9 F 86 18 126/72 H 98 01/19/18 07:32 01/19/18 07:32 01/19/18 07:32 01/19/18 07:32 01/19/18 07:32 Intake & Output 01/18/18 01/19/18 01/20/18 06:59 06:59 06:59 Intake Total 641 2900 Balance 641 2900 Weight 114.8 kg General appearance: PRESENT: no acute distress, cooperative, disheveled, obese Respiratory exam: PRESENT: clear to auscultation henrietta, unlabored. ABSENT: accessory muscle use, rales, rhonchi, tachypnea, wheezes Cardiovascular exam: PRESENT: RRR, +S1, +S2. ABSENT: diastolic murmur, systolic murmur Vascular exam: PRESENT: normal capillary refill GI/Abdominal exam: PRESENT: normal bowel sounds, soft. ABSENT: distended, guarding, rebound, tenderness Extremities exam: PRESENT: tenderness - Right elbow, other - There is erythema on the medial surface of the right elbow. Focus of erythema and induration seems to be from a raised red area that has the skin excoriated from the top of it. There is no fluctuance. There are no obvious exudates. Musculoskeletal exam: PRESENT: ambulatory. ABSENT: deformity Neurological exam: PRESENT: alert, awake, oriented to person, oriented to place , oriented to time Psychiatric exam: PRESENT: appropriate affect, normal mood Results Laboratory Results: 01/19/18 03:57 01/19/18 03:57 01/19/18 01/19/18 03:57 03:57 WBC 12.7 H RBC 4.02 L Hgb 12.5 L Hct 36.0 L MCV 90 MCH 31.0 MCHC 34.6 RDW 13.1 Plt Count 285 Sodium 137.6 Potassium 4.2 Chloride 104 Carbon Dioxide 23 Anion Gap 11 BUN 12 Creatinine 0.92 Est GFR ( Amer) > 60 Est GFR (Non-Af Amer) > 60 Glucose 88 Calcium 8.3 L Impressions: Upper Extremity CT 01/18/18 18:24 IMPRESSION: No fluid collection or radiopaque foreign body.No abnormal enhancement. Assessment & Plan - Diagnosis (1) Cellulitis of arm, right Is this a current diagnosis for this admission?: Yes Plan: Currently on vancomycin and cefepime. Blood cultures are pending. We will have to monitor the lesion for conversion to an abscess. At this time it does not appear to have drainable fluid collection. He said he was on Bactrim and Keflex as an outpatient for 3 days prior to coming in. - Time Time Spent with patient: 15-24 minutes
[2018-01-19] MEDS: NICOTINE 21 MG/24 HR PATCH.TD24 TD SCH (22:03)
[2018-01-20] MEDS: NORMAL SALINE 1000 ML 1,000 ML IV PRN ×2 (00:11→10:21)
[2018-01-20] MEDS: HYDROMORPHONE HCL INJ/PF 2 MG/ML AMPULE IV PRN ×3 (00:55→10:50)
[2018-01-20] MEDS: VANCOMYCIN HCL 1,500 MG in DEXTROSE 5%-WATER 250 ML IV SCH ×3 (01:57→18:51)
[2018-01-20 05:11] LABS: HEMATOCRIT 38.6 % (37.9-51.0); MEAN CORPUSCULAR HEMOGLOBIN 30.3 pg (27.0-33.4); MEAN CORPUSCULAR HGB CONC 33.6 g/dL (32.0-36.0); MEAN CORPUSCULAR VOLUME 90 fl (80-97); PLATELET COUNT 282 10^3/uL (150-450); RED BLOOD COUNT 4.29 10^6/uL (4.35-5.55); RED CELL DISTRIBUTION WIDTH 12.9 % (11.5-14.0); WHITE BLOOD COUNT 8.5 10^3/uL (4.0-10.5)
[2018-01-20 05:46] LABS: ANION GAP 10 (5-19); CALCIUM 8.4 mg/dL (8.4-10.2); CARBON DIOXIDE 24 mmol/L (22-30); CHLORIDE 106 mmol/L (98-107); SODIUM 139.5 mmol/L (137-145)
[2018-01-20 06:00] LABS: BLOOD UREA NITROGEN 12 mg/dL (7-20); GLUCOSE 141 mg/dL (75-110); POTASSIUM 4.2 mmol/L (3.6-5.0)
[2018-01-20] MEDS: CEFEPIME 1 GM/D5W RTU 1 GM/50 ML RTUPB IV SCH ×2 (06:08→18:17)
[2018-01-20] MEDS: IBUPROFEN 800 MG TABLET PO SCH ×3 (06:09→21:03)
[2018-01-20] MEDS: HEPARIN SOD (PORCINE) 5,000 UNIT/ML 1 ML SYRINGE SUBCUT SCH ×3 (06:10→21:05)
[2018-01-20 10:53] LABS: VANCOMYCIN,TROUGH 12.2 ug/mL (5.0-20.0)
[2018-01-20] MEDS ORDERED: HYDROCODONE/ACETAMINOPHEN 7.5-325 MG TABLET PO PRN (12:42)
--- NOTE | 2018-01-20 13:42 | PDOC PROGRESS REPORT ---
Subjective Progress Note for:: 01/20/18 Subjective:: Mr. Hou is a 47-year-old male who was admitted for right arm cellulitis. No acute event overnight. This morning, he did complain of recurrence of pain on the right arm. Patient says that the redness on the medial part of the right arm has slightly increased although per nursing staff who also took care of the patient in the past few days says that the redness has been the same. The primary focal tenderness which has been marked and outlined when he came in has decreased in size in tenderness. Reason For Visit: LEFT ARM CELLULITIS Physical Exam Vital Signs: Temp Pulse Resp BP Pulse Ox 97.6 F 71 18 124/63 99 01/20/18 11:58 01/20/18 11:58 01/20/18 11:58 01/20/18 11:58 01/20/18 11:58 Intake & Output 01/19/18 01/20/18 01/21/18 06:59 06:59 06:59 Intake Total 641 5487 1747 Balance 641 5487 1747 Weight 253 lb 1.451 oz 259 lb 4.218 oz General appearance: PRESENT: no acute distress Head exam: PRESENT: atraumatic Eye exam: PRESENT: conjunctiva pink, EOMI, PERRLA. ABSENT: scleral icterus Ear exam: PRESENT: normal external ear exam Mouth exam: PRESENT: moist Neck exam: ABSENT: carotid bruit, JVD, lymphadenopathy, thyromegaly Respiratory exam: PRESENT: clear to auscultation henrietta. ABSENT: rales, rhonchi, wheezes Cardiovascular exam: PRESENT: RRR. ABSENT: diastolic murmur, rubs, systolic murmur Pulses: PRESENT: normal dorsalis pedis pul Vascular exam: PRESENT: normal capillary refill GI/Abdominal exam: PRESENT: normal bowel sounds, soft. ABSENT: distended, guarding, mass, organolmegaly, rebound, tenderness Rectal exam: PRESENT: deferred Extremities exam: PRESENT: full ROM. ABSENT: calf tenderness, clubbing, pedal edema Musculoskeletal exam: PRESENT: ambulatory, other - Note of a ~2x3 cm slightly raised, tender erythematous area on the right arm (primary lesion) which has decreased significantly upon admission based on my outlines. Note of a flat erythema extending into the medial aspect of the right arm next to the primary lesion Neurological exam: PRESENT: alert, oriented to time Psychiatric exam: PRESENT: appropriate affect, homicidal ideation, normal mood, suicidal ideation Skin exam: PRESENT: other - Note of multiple slightly erythematous, maculopapular lesions with crusting on the knees elbows and armpits which appeared to be a possible psoriatic lesions Results Laboratory Results: 01/20/18 04:13 01/20/18 04:13 01/20/18 01/20/18 04:13 04:13 WBC 8.5 RBC 4.29 L Hgb 13.0 L Hct 38.6 MCV 90 MCH 30.3 MCHC 33.6 RDW 12.9 Plt Count 282 Sodium 139.5 Potassium 4.2 Chloride 106 Carbon Dioxide 24 Anion Gap 10 BUN 12 Creatinine 0.82 Est GFR ( Amer) > 60 Est GFR (Non-Af Amer) > 60 Glucose 141 H Calcium 8.4 Impressions: Upper Extremity CT 01/18/18 18:24 IMPRESSION: No fluid collection or radiopaque foreign body.No abnormal enhancement. Assessment & Plan - Diagnosis (1) Cellulitis of arm, right Is this a current diagnosis for this admission?: Yes Plan: Patient is currently on vancomycin and cefepime. The primary focal point has significantly decreased in size. Patient does complain of an erythema which has been extending onto the right arm. This previous lesion has not been outlined. This erythema has been marked and will observe another day if this expands or continues to improve. Blood culutres have been negative so far. We will switch IV Dilaudid to [place]. Anticipating discharge in 1-2 days depending on the improvement of his lesions tomorrow. 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
[2018-01-20] MEDS ORDERED: KETOROLAC TROMETHAMINE INJ/PF 30 MG/1 ML SDV IV ONE (20:00)
[2018-01-20] MEDS: HYDROCODONE/ACETAMINOPHEN 10-325 MG TABLET PO PRN (21:05)
[2018-01-20] MEDS: ALPRAZOLAM 0.5 MG TABLET PO PRN (21:05)
[2018-01-20] MEDS: NICOTINE 21 MG/24 HR PATCH.TD24 TD SCH (21:06)
[2018-01-20] MEDS: ONDANSETRON 4 MG TAB.RAPDIS PO PRN (21:38)
[2018-01-21] MEDS: HYDROCODONE/ACETAMINOPHEN 10-325 MG TABLET PO PRN ×3 (00:42→09:10)
[2018-01-21] MEDS: VANCOMYCIN HCL 1,500 MG in DEXTROSE 5%-WATER 250 ML IV SCH ×2 (02:56→09:14)
[2018-01-21] MEDS: ONDANSETRON 4 MG TAB.RAPDIS PO PRN (03:58)
[2018-01-21] MEDS: CEFEPIME 1 GM/D5W RTU 1 GM/50 ML RTUPB IV SCH (05:09)
[2018-01-21] MEDS: HEPARIN SOD (PORCINE) 5,000 UNIT/ML 1 ML SYRINGE SUBCUT SCH (05:13)
[2018-01-21] MEDS: IBUPROFEN 800 MG TABLET PO SCH (05:16)
[2018-01-21 06:32] LABS: HEMATOCRIT 37.4 % (37.9-51.0); MEAN CORPUSCULAR HEMOGLOBIN 30.9 pg (27.0-33.4); MEAN CORPUSCULAR HGB CONC 34.7 g/dL (32.0-36.0); MEAN CORPUSCULAR VOLUME 89 fl (80-97); PLATELET COUNT 344 10^3/uL (150-450); RED BLOOD COUNT 4.21 10^6/uL (4.35-5.55); RED CELL DISTRIBUTION WIDTH 12.6 % (11.5-14.0); WHITE BLOOD COUNT 7.2 10^3/uL (4.0-10.5)
[2018-01-21 06:47] LABS: ANION GAP 9 (5-19); BLOOD UREA NITROGEN 12 mg/dL (7-20); CALCIUM 8.8 mg/dL (8.4-10.2); CARBON DIOXIDE 24 mmol/L (22-30); CHLORIDE 106 mmol/L (98-107); GLUCOSE 107 mg/dL (75-110); POTASSIUM 4.3 mmol/L (3.6-5.0); SODIUM 138.9 mmol/L (137-145)
[2018-01-21 09:26] VITALS: BP 110/69
--- NOTE | 2018-01-22 19:54 | PDOC DISCHARGE SUMMARY ---
General - Admit/Disc Date/PCP Admission Date/Primary Care Provider: 01/18/18 21:07 Discharge Date: 01/21/18 - Discharge Diagnosis (1) Cellulitis of arm, right Is this a current diagnosis for this admission?: Yes (2) Hepatitis C Is this a current diagnosis for this admission?: Yes - Additional Information Resuscitation Status: Full Code Discharge Diet: As Tolerated Discharge Activity: Activity As Tolerated Prescriptions: Amox Tr/Potassium Clavulanate [Augmentin 875-125 mg Tablet] 1 tab PO BID 10 Days #20 tablet Doxycycline Hyclate [Doryx] 200 mg PO BID 10 Days #20 tablet. Hydrocodone/Acetaminophen [[place] 7.5-325 Tablet] 1 each PO Q6HP PRN #8 tablet PRN Reason: Naproxen [Naprosyn 375 mg Tablet] 375 mg PO TID PRN 4 Days #12 tablet PRN Reason: Home Medications: Albuterol Sulfate [Proair HFA Inhalation Aerosol 8.5 gm MDI] 1 puff IH Q4 PRN Omeprazole Magnesium [Prilosec Otc] 20 mg PO DAILY 01/19/18 Amox Tr/Potassium Clavulanate [Augmentin 875-125 mg Tablet] 1 tab PO BID 10 Days #20 tablet 01/21/18 Doxycycline Hyclate [Doryx] 200 mg PO BID 10 Days #20 tablet. 01/21/18 Hydrocodone/Acetaminophen [[place] 7.5-325 Tablet] 1 each PO Q6HP PRN #8 tablet Naproxen [Naprosyn 375 mg Tablet] 375 mg PO TID PRN 4 Days #12 tablet 01/21/18 History of Present Illness History of Present Illness: EMELYN BRAVO JR is a 47 year old man who has hepatitis C and GERD. He has been into the ER twice in the past few days with right elbow cellulitis. Several days ago he was started on Bactrim and Keflex. He came back into the ER the day prior to admission with worsening symptoms. His sister tells me that he received a dose of vancomycin which seemed to have improved the redness for short period of time. He was discharged home after an ultrasound showed no abscess. He came back in today because the redness was spreading and the pain got worse. CT of the arm was done and there is no fluid collection seen. Patient is being admitted to the hospitalist service with worsening cellulitis having failed outpatient antibiotic therapy and also with significant pain related to the infection, which possibly includes an early abscess. The etiology of his cellulitis is not quite clear. 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 He has multiple bite hernandez from various insects to which he is exposed in the [place]. Hospital Course Hospital Course: Patient was started on on vancomycin and cefepime. The tender and erythematous lesions marked and outlined. Blood cultures came back negative. These significantly improved in 2 days. Patient was discharged on doxycycline and Augmentin for 10 more days. Physical Exam Vital Signs: Temp Pulse Resp BP Pulse Ox 97.6 F 66 20 110/69 97 01/21/18 09:23 01/21/18 09:23 01/21/18 09:23 01/21/18 09:23 01/21/18 09:23 Intake & Output 01/21/18 01/22/18 01/23/18 06:59 06:59 06:59 Intake Total 4179 Balance 4179 Weight 257 lb 15.053 oz General appearance: PRESENT: no acute distress, well-developed, well-nourished Head exam: PRESENT: atraumatic, normocephalic Eye exam: PRESENT: conjunctiva pink, EOMI, PERRLA. ABSENT: scleral icterus Neck exam: ABSENT: carotid bruit, JVD, lymphadenopathy, thyromegaly Respiratory exam: PRESENT: clear to auscultation henrietta. ABSENT: rales, rhonchi, wheezes Cardiovascular exam: PRESENT: RRR. ABSENT: diastolic murmur, rubs, systolic murmur Pulses: PRESENT: normal dorsalis pedis pul Vascular exam: PRESENT: normal capillary refill GI/Abdominal exam: PRESENT: normal bowel sounds, soft. ABSENT: distended, guarding, mass, organolmegaly, rebound, tenderness Rectal exam: PRESENT: deferred Extremities exam: PRESENT: other - Market outlined erythematous and tender skin lesions have significantly decreased in size, erythema and tenderness. Musculoskeletal exam: PRESENT: ambulatory Neurological exam: PRESENT: alert, awake, oriented to person, oriented to place , oriented to time, oriented to situation, CN II-XII grossly intact. ABSENT: motor sensory deficit Psychiatric exam: PRESENT: appropriate affect, normal mood. ABSENT: homicidal ideation, suicidal ideation Results Laboratory Results: 01/21/18 06:13 01/21/18 06:13 Impressions: Upper Extremity CT 01/18/18 18:24 IMPRESSION: No fluid collection or radiopaque foreign body.No abnormal enhancement. Qualifiers - * PATIENT BEING DISCHARGED WITH ANY OF THE FOLLOWING DIAGNOSIS: No
== END 2018-01-21 09:55 | disposition home or self-care (01) | DRG 603 ==
LOC: ER 16:59 → EH 21:07 → 3N 22:37
PROVIDERS: ADMIT Internal Medicine; ATTEND Internal Medicine
DX: L03.113 Cellulitis of right upper limb (principal); B19.20 Unspecified viral hepatitis C without hepatic coma; K21.9 Gastro-esophageal reflux disease without esophagitis; J45.909 Unspecified asthma, uncomplicated; F17.210 Nicotine dependence, cigarettes, uncomplicated; Z60.2 Problems related to living alone; M25.862 Other specified joint disorders, left knee; M25.861 Other specified joint disorders, right knee; L08.9 Local infection of the skin and subcutaneous tissue, unspecified; F19.11 Other psychoactive substance abuse, in remission; K74.60 Unspecified cirrhosis of liver; Z90.49 Acquired absence of other specified parts of digestive tract; Z79.899 Other long term (current) drug therapy; Z79.52 Long term (current) use of systemic steroids; Z83.3 Family history of diabetes mellitus; Z82.49 Family history of ischemic heart disease and other diseases of the circulatory system
CPT/HCPCS: 36415; 80048; 80053; 80202; 83605; 85025; 85027; 86140; 87040; 96374; 96375; 99284; J0692; J1170; J1644; J2405; J3010; J3370; J3490; J7030; J7060; S0119

== ENCOUNTER 2018-02-02 09:48 | Emergency (ER) | payer SELFPAY ==
--- NOTE | 2018-02-02 10:20 | ER Document Report ---
ED GI/ - General Mode of Arrival: Ambulatory Information source: Patient TRAVEL OUTSIDE OF THE [place] IN LAST 30 DAYS: No <MIRIAM LINN - Last Filed: 02/02/18 10:27> <VISHAL IJN - Last Filed: 02/02/18 16:55> - General Chief Complaint: Abdominal Pain Stated Complaint: ABDOMINAL PAIN Time Seen by Provider: 02/02/18 10:07 Notes: 47-year-old male that presents to the emergency department today with complaints of abdominal pain for the last couple days. Patient is moaning and groaning with every breath. Patient states the pain is located in his upper abdomen and he has had associated vomiting. Patient denies any EtOH usage. ( MIRIAM LINN) - Related Data Allergies/Adverse Reactions: No Known Allergies Allergy (Verified 01/18/18 19:20) Past Medical History - General Information source: Patient - Social History Smoking Status: Current Every Day Smoker Cigarette use (# per day): Yes Frequency of alcohol use: None Drug Abuse: None Lives with: Family Family History: Reviewed & Not Pertinent, CAD, DM Pulmonary Medical History: Reports: Hx Asthma GI Medical History: Reports: Hx Cirrhosis - Hepatitis C, Hx Gastroesophageal Reflux Disease Past Surgical History: Reports: Hx Cholecystectomy, Hx Orthopedic Surgery - Left hand - Immunizations Hx Diphtheria, Pertussis, Tetanus Vaccination: Yes <MIRIAM LINN - Last Filed: 02/02/18 10:27> Review of Systems - Review of Systems Constitutional: No symptoms reported EENT: No symptoms reported Cardiovascular: No symptoms reported Respiratory: No symptoms reported Gastrointestinal: See HPI, Abdominal pain, Vomiting Genitourinary: No symptoms reported Male Genitourinary: No symptoms reported Musculoskeletal: No symptoms reported Skin: No symptoms reported Hematologic/Lymphatic: No symptoms reported Neurological/Psychological: No symptoms reported -: Yes All other systems reviewed and negative <MIRIAM LINN - Last Filed: 02/02/18 10:27> - Review of Systems Respiratory: Cough - Congested cough for the past 5 days. denies: No symptoms reported <VISHAL JIN - Last Filed: 02/02/18 16:55> - Vital signs Vitals: Resp Pulse Ox 14 98 02/02/18 10:02 02/02/18 10:02 - Notes Notes: Physical Exam: General: Alert, moaning throughout entire exam. HEENT: Normocephalic. Atraumatic. PERRL. Extraocular movements intact. Oropharynx clear. Neck: Supple. Non-tender. Respiratory: No respiratory distress. Very difficult to auscultate lungs because patient moans and groans with every breath. Cardiovascular: Regular rate and rhythm. Abdominal: RLQ and epigastric tenderness with palpation, positive guarding. No distension. Very difficult to auscultate bowel sounds because patient moans and groans with every breath. Back: Non-tender. No deformity or step off. Extremities: Moves all four extremities. Upper extremities: Normal inspection. Normal ROM. Lower extremities: Normal inspection. No edema. Normal ROM. Neurological: Normal cognition. AAOx4. Normal speech. Psychological: Normal affect. Normal Mood. Skin: Warm. Dry. Normal color. (MIRIAM LINN) Course <MIRIAM LINN - Last Filed: 02/02/18 10:27> - Laboratory Result Diagrams: 02/02/18 10:52 02/02/18 10:52 - Diagnostic Test Radiology reviewed: Image reviewed, Reports reviewed - CT scan of the abdomen and pelvis with IV contrast shows slight to mild thickening of the colonic wall which could be inflammatory in nature. CXR does not show any acute cardiopulmonary abnormalities. <VISHAL JIN - Last Filed: 02/02/18 16:55> - Re-evaluation Re-evalutation: 02/02/18 15:46 Reexam of this time, the patient still has diffuse tenderness of the abdomen, mostly in the upper abdomen. He is also noted to have similar tenderness over the ribs on the right anterior inferior chest wall. When I pointed this out the patient he stated it may be due to coughing so much recently. He does have a congested cough. CT scan of the abdomen and pelvis did show some dependent atelectasis in the lung bases. I suspect the pain the patient has been experiencing is more likely due to anterior abdominal and inferior anterior chest wall muscle strain from all the coughing he has been doing. The sed rate was 7 and the CRP was less than 5, which makes the CT scan that suggested thickening of the colon wall an unlikely source for his discomfort. 02/02/18 16:44 Chest x-ray is unremarkable. The patient did receive Toradol IV. Reevaluation of his abdomen at this time shows that when the muscles are tense they are much more tender than when they are relaxed. He does continue to have a congested cough without wheezes. I think the physical exam and workup today is most consistent with abdominal muscle strain secondary to coughing. He does state that he has been nauseous and not really able to eat since last when the cough started. I am not sure how to equate the nausea with the bronchitis. He will be discharged with some Imperial to help control his cough and discomfort. He will increase his Aleve that he is taking 2 tablets once daily to 2 tablets every 12 hours. He will receive a prescription for Reglan to take for nausea if needed. (VISHAL JIN) - Vital Signs Vital signs: Temp Pulse Resp BP Pulse Ox 14 122/72 97 02/02/18 16:31 02/02/18 16:31 02/02/18 16:31 - Laboratory Laboratory results interpreted by me: 02/02/18 02/02/18 02/02/18 10:52 10:52 10:52 WBC 11.0 H Absolute Neutrophils 8.5 H Potassium 3.5 L Carbon Dioxide 21 L Lactic Acid 2.4 H Alkaline Phosphatase 157 H Urine Protein Urine Urobilinogen 02/02/18 12:18 WBC Absolute Neutrophils Potassium Carbon Dioxide Lactic Acid Alkaline Phosphatase Urine Protein 30 H Urine Urobilinogen 2.0 H Discharge <MIRIAM LINN - Last Filed: 02/02/18 10:27> <VISHAL JIN - Last Filed: 02/02/18 16:55> - Discharge Clinical Impression: Bronchitis, Abdominal muscle pain, Cough, Nausea Condition: Stable Disposition: HOME, SELF-CARE Additional Instructions: Bronchitis: You have acute bronchitis. This disease is an infection or inflammation of the air passageways in your lungs. Symptoms usually include cough, low grade fever, shortness of breath, and wheezing. The cough usually persists for a couple of weeks. Most cases of bronchitis get better without antibiotics. We prescribe antibiotics when we believe bacteria are damaging your airways, or if there's high risk the bronchitis will worsen into pneumonia. Increase your fluid intake. A cool mist humidifier may make your lungs more comfortable. An expectorant (cough medicine that loosens phlegm) can help. If you smoke, STOP!!! Recovery from bronchitis can be somewhat slow, but you should see improvement within a day or two. Repeated episodes of bronchitis may result in lung damage -- for example, chronic bronchitis, recurrent pneumonias, or emphysema. Call the doctor if you develop increasing fever, shortness of breath, chest pain, bloody sputum, or otherwise worsen. If you have not improved at all after several days, contact the physician. Abdominal Pain: There are many causes of abdominal pain. Pain can mean a serious problem requiring surgery (such as appendicitis). It can also be an innocent problem that goes away on its own (such as a viral infection). Often, time must pass to determine the cause of pain. The physician does not feel that hospitalization is necessary, at present. Things may change within the next 24 hours. Call the doctor or come back for re- examination if any problems occur, such as: (1) Pain that becomes more severe, steady, or becomes concentrated in one specific area. Also, pain that is more severe with movement or coughing. (2) Vomiting that persists or becomes more frequent. (3) Blood in the vomitus, urine, or bowel movements. Blood in the stool may have a tarry or black appearance. (4) Shaking chills or fever greater than 100 degrees F. (5) The abdomen becomes more distended or swollen. (6) Bowel movements cease. (7) Failure to improve as expected. Abdominal Muscle Strain: You have probably strained the muscles in the abdominal wall. This often occurs with strenuous exertion, or during an injury that suddenly stretches the muscle. The seriousness of a strain varies. Some strains heal within days, others cause problems for months. X-rays cannot show a muscle strain. X-rays are taken only if symptoms suggest that a fracture could be present. The usual treatment of a muscle strain is rest and ice packs. Severe strains require a special exercise and stretching program to prevent permanent stiffness and disability. Your doctor will advise you if this will be necessary. Call the doctor immediately if pain or swelling becomes severe, or if numbness or discoloration develop. Take the medications as prescribed for nausea, and abdominal pain. Drink plenty of fluids. Take Robitussin-DM to help suppress your cough. Try ice packs to the painful abdominal muscles. Follow-up with a local medical doctor if not improving. RETURN TO THE EMERGENCY ROOM IF ANY NEW OR WORSENING SYMPTOMS. Prescriptions: Hydrocodone/Acetaminophen [Hydrocodon-Acetaminophen 5-325] 1 each PO Q4 PRN #10 tablet PRN Reason: For Pain Metoclopramide HCl [Reglan 10 mg Tablet] 1 tab PO ASDIR PRN #12 tablet PRN Reason: Scribe Attestation: 02/02/18 12:32 I personally performed the services described in the documentation, reviewed and edited the documentation which was dictated to the scribe in my presence, and it accurately records my words and actions. (VISHAL JIN) Scribe Documentation - Scribe Written by Jose F:: Jose F Coyle, 02/02/2018 1034 acting as scribe for :: Leif <MIRIAM LINN - Last Filed: 02/02/18 10:27>
[2018-02-02] MEDS ORDERED: NORMAL SALINE 1000 ML 1,000 ML IV ONE (10:22)
[2018-02-02] MEDS ORDERED: ONDANSETRON HCL INJ/PF 4 MG/2 ML SDV IV ONE (10:22)
[2018-02-02] MEDS ORDERED: MORPHINE SULFATE 10 MG/ML INJ IV ONE (10:22)
[2018-02-02] MEDS ORDERED: FAMOTIDINE INJ/PF 20 MG/2 ML SDV IV ONE (10:48)
[2018-02-02] MEDS ORDERED: DIPHENHYDRAMINE HCL 50 MG/ML VIAL IV ONE (10:48)
[2018-02-02] MEDS ORDERED: HYDROMORPHONE HCL INJ/PF 2 MG/ML AMPULE IV ONE (10:57)
[2018-02-02 11:06] LABS: ABSOLUTE EOSINOPHILS # (AUTO) 0.1 10^3/uL (0.0-0.6); ABSOLUTE LYMPHOCYTES (AUTO) 1.8 10^3/uL (0.5-4.7); ABSOLUTE MONOCYTES (AUTO) 0.6 10^3/uL (0.1-1.4); ABSOLUTE NEUT (AUTO) 8.5 10^3/uL (1.7-8.2); BASOPHILS % (AUTO) 0.3 % (0-2); EOSINOPHILS % (AUTO) 0.5 % (0-6); HEMOGLOBIN 15.2 g/dL (13.5-17.0); LYMPHOCYTES % (AUTO) 16.1 % (13-45); MEAN CORPUSCULAR HEMOGLOBIN 30.6 pg (27.0-33.4); MEAN CORPUSCULAR HGB CONC 34.5 g/dL (32.0-36.0); MEAN CORPUSCULAR VOLUME 89 fl (80-97); MONOCYTES % (AUTO) 5.7 % (3-13); PLATELET COUNT 410 10^3/uL (150-450); RED BLOOD COUNT 4.95 10^6/uL (4.35-5.55); RED CELL DISTRIBUTION WIDTH 12.8 % (11.5-14.0); SEGMENTED NEUTROPHILS % (AUTO) 77.4 % (42-78); TOTAL CELLS COUNTED % (AUTO) 100 %
[2018-02-02 11:25] LABS: ALANINE AMINOTRANSFERASE 31 U/L (21-72); ALKALINE PHOSPHATASE 157 U/L (38-126); ANION GAP 17 (5-19); ASPARTATE AMINO TRANSFERASE 21 U/L (17-59); BILIRUBIN,DIRECT 0.2 mg/dL (0.0-0.4); BILIRUBIN,TOTAL 0.5 mg/dL (0.2-1.3); BLOOD UREA NITROGEN 14 mg/dL (7-20); CALCIUM 9.5 mg/dL (8.4-10.2); CARBON DIOXIDE 21 mmol/L (22-30); CHLORIDE 106 mmol/L (98-107); GLUCOSE 99 mg/dL (75-110); LIPASE 69.7 U/L (23-300); POTASSIUM 3.5 mmol/L (3.6-5.0); SODIUM 143.9 mmol/L (137-145); TOTAL PROTEIN 7.3 g/dL (6.3-8.2)
[2018-02-02 12:44] LABS: APPEARANCE,URINE SLIGHTLY-CLOUDY; BILIRUBIN,URINE NEGATIVE (NEGATIVE); COLOR,URINE YELLOW; GLUCOSE, URINE NEGATIVE (NEGATIVE); KETONES,URINE NEGATIVE (NEGATIVE); LEUKOCYTE ESTERASE,URINE NEGATIVE (NEGATIVE); NITRITE,URINE NEGATIVE (NEGATIVE); PROTEIN,URINE 30 mg/dL (NEGATIVE); URINE SPECIFIC GRAVITY 1.036
--- NOTE | 2018-02-02 12:46 | RADIOLOGY REPORT (SQ) ---
EXAM DESCRIPTION: CT ABD/PELVIS WITH IV ONLY COMPLETED DATE/TIME: 02/02/2018 12:06 pm REASON FOR STUDY: Abdominal pain, nausea COMPARISON: None. TECHNIQUE: CT scan of the abdomen and pelvis performed using helical scanning technique with dynamic intravenous contrast injection. No oral contrast. Images reviewed with lung, soft tissue, and bone windows. Reconstructed coronal and sagittal MPR images reviewed. Delayed images for evaluation of the urinary system also acquired. All images stored on PACS. All CT scanners at this facility use dose modulation, iterative reconstruction, and/or weight based d osing when appropriate to reduce radiation dose to as low as reasonably achievable (ALARA). [facility]: Dose Right [facility]: CareDose [facility]: Dose Right [facility]: Teradose 4D [facility]: Gifts that Give CONTRAST TYPE AND DOSE: contrast/concentration: Isovue 350.00 mg/ml; Total Contrast Delivered: 99.0 ml; Total Saline Delivered: 56.0 ml RENAL FUNCTION: Creatinine - 1.04. BUN=14 RADIATION DOSE: CT Rad equipment meets quality standard of care and radiation dose reduction techniq ues were employed. CTDIvol: 15.2 - 19.4 mGy. DLP: 2145 mGy-cm.. LIMITATIONS: None. FINDINGS: LOWER CHEST: Dependent atelectasis in the posterior aspect of the lower lobes. LIVER: Normal size. No masses. Mild central intrahepatic biliary dilatation in a post cholecystectom y patient. The hepatic and portal veins are patent. SPLEEN: Small splenule, normal anatomic variant. PANCREAS: No masses. No significant calcifications. No adjacent inflammation or peripancreatic fluid collections. Pancreatic duct not dilated. GALLBLADDER: Prior cholecystectomy. ADRENAL GLANDS: No significant masses or asymmetry. RIGHT KIDNEY AND URETER: No solid masses. No significant calcifications. No hydronephrosis or hyd roureter. LEFT KIDNEY AND URETER: No solid masses. No significant calcifications. No hydronephrosis or hydr oureter. AORTA AND VESSELS: No aneurysm. No dissection. Renal arteries, SMA, celiac without stenosis. RETROPERITONEUM: No retroperitoneal adenopathy, hemorrhage or masses. BOWEL AND PERITONEAL CAVITY: Slight to mild thickening of the colonic wall may be on the basis of in flammatory changes no free fluid. No evidence of abscess or perforation. APPENDIX: Normal. PELVIS: The prostate gland measures 4.3 cm in diameter. No mass. No free fluid. Normal bladder. ABDOMINAL WALL: Fat in the upper scrotal sacs. BONES: Scoliosis and degenerative disc disease L3-4. OTHER: No other significant finding. IMPRESSION: 1 Slight to mild thickening of the colonic wall may be on an inflammatory basis. No an dence of obstruction, abscess or perforation. 2. Prior cholecystectomy. 3. Additional findings as above. TECHNICAL DOCUMENTATION: JOB ID: [id number] Quality ID # [id number]: Final reports with documentation of one or more dose reduction techniques (e.g., Au tomated exposure control, adjustment of the mA and/or kV according to patient size, use of iterative reconstruction technique) 2010 [employer]- All Rights Reserved Reading location - IP/workstation name: [email or web address]
[2018-02-02] MEDS ORDERED: RINGERS SOLUTION,LACTATED 1,000 ML IV ONE (13:21)
[2018-02-02 14:17] LABS: C-REACTIVE PROTEIN < 5.0 mg/L (<10.0)
[2018-02-02] MEDS ORDERED: METOCLOPRAMIDE HCL INJ/PF 10 MG/2 ML SDV IV ONE (14:55)
[2018-02-02] MEDS ORDERED: KETOROLAC TROMETHAMINE INJ/PF 30 MG/1 ML SDV IV ONE (15:45)
--- NOTE | 2018-02-02 16:28 | RADIOLOGY REPORT (SQ) ---
EXAM DESCRIPTION: CHEST 2 VIEWS COMPLETED DATE/TIME: 02/02/2018 4:12 pm REASON FOR STUDY: Congested cough COMPARISON: None. EXAM PARAMETERS: NUMBER OF VIEWS: two views TECHNIQUE: Digital Frontal and Lateral radiographic views of the chest acquired. RADIATION DOSE: NA LIMITATIONS: none FINDINGS: LUNGS AND PLEURA: No opacities, masses or pneumothorax. No pleural effusion. MEDIASTINUM AND HILAR STRUCTURES: No masses or contour abnormalities. HEART AND VASCULAR STRUCTURES: Heart normal size. No evidence for failure. BONES: No acute findings. HARDWARE: None in the chest. OTHER: No other significant finding. IMPRESSION: NO ACUTE RADIOGRAPHIC FINDING IN THE CHEST. TECHNICAL DOCUMENTATION: JOB ID: [id number] [employer]- All Rights Reserved Reading location - IP/workstation name: [email or web address]
[2018-02-02 16:32] VITALS: BP 122/72
== END 2018-02-02 17:06 | disposition home or self-care (01) ==
LOC: ER 09:48
DX: J45.909 Unspecified asthma, uncomplicated (principal); R10.10 Upper abdominal pain, unspecified; J98.11 Atelectasis; R11.2 Nausea with vomiting, unspecified; R10.817 Generalized abdominal tenderness; R05 Cough; F17.210 Nicotine dependence, cigarettes, uncomplicated; Z90.49 Acquired absence of other specified parts of digestive tract; Z87.19 Personal history of other diseases of the digestive system
CPT/HCPCS: 99285; 96361; 96374; 96375; 36415; 83690; 85025; 85652; 86140; 80053; 81001; 83605; 71046; 74177; J1200; J1885; J2765; J2270; J1170; J2405; J7030; J7120; S0028

== ENCOUNTER 2018-02-15 16:46 | Emergency (ER) | payer SELFPAY ==
[2018-02-15] MEDS ORDERED: FENTANYL CITRATE INJ/PF 100 MCG/2 ML AMPUL IV ONE (17:25)
[2018-02-15] MEDS ORDERED: NORMAL SALINE 1000 ML 1,000 ML IV ONE (17:25)
--- NOTE | 2018-02-15 17:27 | ER Document Report ---
ED Medical Screen (RME) - General Chief Complaint: Fall Injury Stated Complaint: FALL SHOULDER ELBOW PAIN Time Seen by Provider: 02/15/18 17:18 Mode of Arrival: Ambulatory Information source: Patient TRAVEL OUTSIDE OF THE [place] IN LAST 30 DAYS: No - HPI Patient complains to provider of: Fall neck pain chest pain Onset: Other - This 47-year-old man presents for evaluation after a fall out of a tree from at least 15 feet in the area at which time he fell hitting his face against a branch subsequently hit his chest and back as well as left arm on the ground with loss of consciousness for an unknown period of time. He subsequently was able to get up drove himself home and has had worsening pain since then. He is got abdominal pain as well as some chest pain and pain across both shoulders. He has had multiple injuries in the past which has been evaluated. Denies any substance use or other symptoms. - Related Data Allergies/Adverse Reactions: No Known Allergies Allergy (Verified 01/18/18 19:20) Past Medical History - Social History Chew tobacco use (# tins/day): No Frequency of alcohol use: None Drug Abuse: None - Past Medical History Cardiac Medical History: Denies: Hx Coronary Artery Disease, Hx Peripheral Vascular Disease Pulmonary Medical History: Reports: Hx Asthma Denies: Hx COPD Endocrine Medical History: Denies: Hx Diabetes Mellitus Type 2 Renal/ Medical History: Denies: Hx End Stage Renal Disease, Hx Peritoneal Dialysis GI Medical History: Reports: Hx Cirrhosis - Hepatitis C, Hx Gastroesophageal Reflux Disease Musculoskeltal Medical History: Denies Hx Arthritis Skin Medical History: Denies Hx Eczema, Denies Hx Psoriasis Psychiatric Medical History: Denies: Hx Depression Past Surgical History: Reports: Hx Cholecystectomy, Hx Orthopedic Surgery - Left hand - Immunizations Hx Diphtheria, Pertussis, Tetanus Vaccination: Yes History of Influenza Vaccine for 03/2017 - 08/2017 Season: Yes Influenza Administration Date for 03/2017 - 08/2017 Season: 03/23/17 Physical Exam - Vital signs Vitals: Temp Pulse Resp BP Pulse Ox 98.4 F 97 20 139/71 H 98 02/15/18 16:55 02/15/18 16:55 02/15/18 16:55 02/15/18 16:55 02/15/18 16:55 Course - Re-evaluation Re-evalutation: 02/15/18 17:26 47-year-old male presents after falling out of a tree with marked pain in the shoulders as well as head neck chest abdomen and pelvis. We will obtain x-rays and CT imaging of tender areas. Patient with the significant traumatic mechanism given the fall from approximately 20 feet. Patient will require further evaluation and reevaluation by secondary provider. Disposition determination pending. - Vital Signs Vital signs: Temp Pulse Resp BP Pulse Ox 98.4 F 97 20 139/71 H 98 02/15/18 16:55 02/15/18 16:55 02/15/18 16:55 02/15/18 16:55 02/15/18 16:55
--- NOTE | 2018-02-15 18:14 | RADIOLOGY REPORT (SQ) ---
EXAM DESCRIPTION: ELBOW LEFT OVER 2 VIEWS COMPLETED DATE/TIME: 02/15/2018 5:59 pm REASON FOR STUDY: pain COMPARISON: None. EXAM PARAMETERS: NUMBER OF VIEWS: Four views. TECHNIQUE: AP, lateral and 2 oblique radiographic images acquired of the left elbow LIMITATIONS: None. FINDINGS: MINERALIZATION: Normal. BONES: No acute fracture or dislocation. No worrisome bone lesions. JOINTS: No effusion. SOFT TISSUES: Posterior soft tissue swelling. No radiopaque foreign body. OTHER: No other significant finding. IMPRESSION: NO FRACTURE. TECHNICAL DOCUMENTATION: JOB ID: [id number] [place]-72 2010 [employer] All Rights Reserved Reading location - IP/workstation name: [email or web address]
[2018-02-15 18:15] LABS: ABSOLUTE EOSINOPHILS # (AUTO) 0.2 10^3/uL (0.0-0.6); ABSOLUTE LYMPHOCYTES (AUTO) 2.1 10^3/uL (0.5-4.7); ABSOLUTE MONOCYTES (AUTO) 0.6 10^3/uL (0.1-1.4); ABSOLUTE NEUT (AUTO) 6.6 10^3/uL (1.7-8.2); BASOPHILS % (AUTO) 0.3 % (0-2); EOSINOPHILS % (AUTO) 2.2 % (0-6); HEMATOCRIT 40.4 % (37.9-51.0); HEMOGLOBIN 14.1 g/dL (13.5-17.0); LYMPHOCYTES % (AUTO) 22.2 % (13-45); MEAN CORPUSCULAR HEMOGLOBIN 31.3 pg (27.0-33.4); MEAN CORPUSCULAR HGB CONC 34.9 g/dL (32.0-36.0); MEAN CORPUSCULAR VOLUME 90 fl (80-97); MONOCYTES % (AUTO) 6.2 % (3-13); PLATELET COUNT 413 10^3/uL (150-450); SEGMENTED NEUTROPHILS % (AUTO) 69.1 % (42-78); TOTAL CELLS COUNTED % (AUTO) 100 %; WHITE BLOOD COUNT 9.6 10^3/uL (4.0-10.5)
[2018-02-15] MEDS ORDERED: FENTANYL CITRATE INJ/PF 100 MCG/2 ML AMPUL ONE (18:43)
--- NOTE | 2018-02-15 18:56 | ER Document Report ---
ED General - General Chief Complaint: Fall Injury Stated Complaint: FALL SHOULDER ELBOW PAIN Time Seen by Provider: 02/15/18 17:18 Mode of Arrival: Ambulatory Cannot obtain history due to: Uncooperative Notes: Patient is a 47-year-old male without chronic medical problems who presents 48 hours after he apparently fell 15 feet. The patient is a difficult historian, thrashing around the bed, complains that he cannot sit still due to pain. He states that he has been in this amount of pain for the past 48 hours continuously but is unable to state why he waited so long to come to the emergency department if he had such a severe degree of pain. Describes the pain as a severe, throbbing, aching pain. Touching the affected areas are moving worsens the pain. He has not turned to improve the pain. He denies history of similar pain or events in the past. The patient describes pain diffusely in his face, his right shoulder, abdomen and chest. He denies any vomiting, shortness of breath, fever or constitutional symptoms. He has not seen his primary doctor regarding today's concerns. TRAVEL OUTSIDE OF THE [place] IN LAST 30 DAYS: No - Related Data Allergies/Adverse Reactions: No Known Allergies Allergy (Verified 01/18/18 19:20) Past Medical History - General Information source: Patient - Social History Smoking Status: Current Every Day Smoker Chew tobacco use (# tins/day): No Frequency of alcohol use: None Drug Abuse: None Lives with: Family Family History: Reviewed & Not Pertinent, CAD, DM Patient has suicidal ideation: No Patient has homicidal ideation: No - Past Medical History Cardiac Medical History: Denies: Hx Coronary Artery Disease, Hx Peripheral Vascular Disease Pulmonary Medical History: Reports: Hx Asthma Denies: Hx COPD Endocrine Medical History: Denies: Hx Diabetes Mellitus Type 2 Renal/ Medical History: Denies: Hx End Stage Renal Disease, Hx Peritoneal Dialysis GI Medical History: Reports: Hx Cirrhosis - Hepatitis C, Hx Gastroesophageal Reflux Disease Musculoskeletal Medical History: Denies Hx Arthritis Skin Medical History: Denies Hx Eczema, Denies Hx Psoriasis Psychiatric Medical History: Denies: Hx Depression Past Surgical History: Reports: Hx Cholecystectomy, Hx Orthopedic Surgery - Left hand - Immunizations Hx Diphtheria, Pertussis, Tetanus Vaccination: Yes Review of Systems - Review of Systems Notes: Constitutional: Negative for fever. Eyes: Negative for visual changes. ENT: Positive for facial injury Cardiovascular: Negative for chest injury. Respiratory: Negative for shortness of breath. Gastrointestinal: Positive for abdominal pain Genitourinary: Negative for genital injury Musculoskeletal: Negative for back injury. Skin: Negative for laceration/abrasions. Neurological: Negative for head injury. Physical Exam - Vital signs Vitals: Temp Pulse Resp BP Pulse Ox 98.4 F 97 20 139/71 H 98 02/15/18 16:55 02/15/18 16:55 02/15/18 16:55 02/15/18 16:55 02/15/18 16:55 Interpretation: Normal Notes: PHYSICAL EXAMINATION: GENERAL: Highly anxious, somewhat agitated, intermittently stating he wants to go home but then stating he needs help HEAD: Atraumatic, normocephalic. EYES: Pupils equal round and reactive to light, extraocular movements intact, sclera anicteric, conjunctiva are normal. ENT: nares patent, no oral pharyngeal trauma. No hemotympanum, no Pink's sign , no raccoon eyes. NECK: No midline cervical spine tenderness. Patient able to move their head to 45 bilaterally without any discomfort. LUNGS: Breath sounds clear to auscultation bilaterally and equal. No wheezes rales or rhonchi. HEART: Regular rate and rhythm without murmurs. CHEST WALL: No ecchymosis over the chest wall. ABDOMEN: Soft, nontender, normoactive bowel sounds. No guarding, no rebound. No abdominal bruising. Negative fast exam. EXTREMITIES: Normal range of motion, no pitting or edema. No long bone deformities. BACK: No midline spinal tenderness, step-offs, or deformities. NEUROLOGICAL: Face symmetric. Tongue protrudes midline. Extraocular motions intact. Pupils are 2 mm and equally reactive. Normal speech, normal gait. 5 out of 5 strength in both the distal and proximal upper and lower extremities bilaterally. Sensation is grossly intact throughout. Finger to nose testing normal. Pronator drift normal. PSYCH: Anxious, agitated SKIN: Warm, Dry, normal turgor, no rashes or lesions noted. Course - Re-evaluation Re-evalutation: 02/15/18 18:53 Patient presents after a reported fall from 15 feet 48 hours ago with diffuse body pain. The patient is a very difficult historian, thrashing around in the bed. Of note, there are no visible external signs of trauma. The patient has a negative fast exam. His vitals are also completely within normal limits which would be atypical in the setting of a significant intrathoracic or intra- abdominal bleed that has been ongoing for 48 hours. The patient initially went to CT scan for manning CT imaging ordered in triage. Apparently shortly after they completed his head and face he stated he could not remain on the CT scan table due to pain and refused to complete the test. He has been given a dose of 50 mg of fentanyl has agreed to go back to CT scan for further evaluation. 02/15/18 20:24 CT scans are completely unremarkable. There is no evidence of injury on exam or on any imaging to any location of the patient's body. Suspect soft tissue contusions or spasming. Patient is quite agitated that he is not receiving additional IV narcotics. At this time will discharge with return precautions and follow-up recommendations. Verbal discharge instructions given a the bedside and opportunity for questions given. Medication warnings reviewed. Patient is in agreement with this plan and has verbalized understanding of return precautions and the need for primary care follow-up in the next 24-72 hours. - Vital Signs Vital signs: Temp Pulse Resp BP Pulse Ox 98.4 F 97 15 116/64 96 02/15/18 16:55 02/15/18 16:55 02/15/18 19:01 02/15/18 19:01 02/15/18 19:01 - Laboratory Result Diagrams: 02/15/18 17:30 02/15/18 17:30 Laboratory results interpreted by me: 02/15/18 17:30 Alkaline Phosphatase 132 H Discharge - Discharge Clinical Impression: Total body pain Fall Qualifiers: Encounter type: initial encounter Qualified Code(s): W19.XXXA - Unspecified fall, initial encounter Condition: Good Disposition: HOME, SELF-CARE Additional Instructions: You have been seen in the Emergency Department (ED) today following a reported fall. Your workup today did not reveal any injuries that require you to stay in the hospital. You can expect, though, to be stiff and sore for the next several days. You can take ibuprofen 600 mg every 6 hours as needed for pain. You can apply a hot pack or electric heating pad to the sore areas. You can also use topical "Aspercreme with lidocaine" to sore areas as needed. Please follow up with your primary care doctor as soon as possible regarding today's ED visit and your recent accident. Call your doctor or return to the ED if you develop a sudden or severe headache , confusion, slurred speech, facial droop, weakness or numbness in any arm or leg, extreme fatigue, vomiting more than two times, severe abdominal pain, or other symptoms that concern you.
--- NOTE | 2018-02-15 19:19 | RADIOLOGY REPORT (SQ) ---
EXAM DESCRIPTION: CT HEAD WITHOUT COMPLETED DATE/TIME: 02/15/2018 7:00 pm REASON FOR STUDY: FALL FROM 15 FEET COMPARISON: None. TECHNIQUE: Axial images acquired through the brain without intravenous contrast. Images reviewed wi th bone, brain and subdural windows. Images stored on PACS. All CT scanners at this facility use dose modulation, iterative reconstruction, and/or weight based d osing when appropriate to reduce radiation dose to as low as reasonably achievable (ALARA). [facility]: Dose Right [facility]: CareDose [facility]: Dose Right [facility]: Teradose 4D [facility]: [employer] RADIATION DOSE: mGy. LIMITATIONS: None. FINDINGS: VENTRICLES: Normal size and contour. CEREBRUM: No masses. No hemorrhage. No midline shift. No evidence for acute infarction. Normal gra y/white matter differentiation. No areas of low density in the white matter. CEREBELLUM: No masses. No hemorrhage. No alteration of density. No evidence for acute infarction. EXTRAAXIAL SPACES: No fluid collections. No masses. ORBITS AND GLOBE: No intra- or extraconal masses. Normal contour of globe without masses. CALVARIUM: No fracture. PARANASAL SINUSES: No fluid. Left sphenoid mucosal thickening. SOFT TISSUES: No mass or hematoma. OTHER: No other significant finding. IMPRESSION: No acute intracranial findings. EVIDENCE OF ACUTE STROKE: NO. COMMENT: Quality ID # 436: Final reports with documentation of one or more dose reduction techniques (e.g., Automated exposure control, adjustment of the mA and/or kV according to patient size, use of iterative reconstruction technique) TECHNICAL DOCUMENTATION: JOB ID: [id number] [place]-72 2010 [employer]- All Rights Reserved Reading location - IP/workstation name: [email or web address]
[2018-02-15 19:21] LABS: ALANINE AMINOTRANSFERASE 24 U/L (21-72); ALBUMIN 3.7 g/dL (3.5-5.0); ALKALINE PHOSPHATASE 132 U/L (38-126); ANION GAP 16 (5-19); ASPARTATE AMINO TRANSFERASE 21 U/L (17-59); BILIRUBIN,DIRECT 0.3 mg/dL (0.0-0.4); BILIRUBIN,TOTAL 0.3 mg/dL (0.2-1.3); BLOOD UREA NITROGEN 12 mg/dL (7-20); CALCIUM 9.2 mg/dL (8.4-10.2); CARBON DIOXIDE 24 mmol/L (22-30); CHLORIDE 104 mmol/L (98-107); GLUCOSE 82 mg/dL (75-110); POTASSIUM 3.9 mmol/L (3.6-5.0); SODIUM 143.5 mmol/L (137-145); TOTAL PROTEIN 6.9 g/dL (6.3-8.2)
--- NOTE | 2018-02-15 19:21 | RADIOLOGY REPORT (SQ) ---
EXAM DESCRIPTION: CT FACIAL AREA WITHOUT COMPLETED DATE/TIME: 02/15/2018 7:00 pm REASON FOR STUDY: FALL COMPARISON: None. TECHNIQUE: Noncontrasted images through the facial bones and orbits windowed for bone and soft tissu e. Additional coronal and sagittal reconstructed images reviewed. All images stored on PACS. All CT scanners at this facility use dose modulation, iterative reconstruction, and/or weight based d osing when appropriate to reduce radiation dose to as low as reasonably achievable (ALARA). [facility]: Dose Right [facility]: CareDose [facility]: Dose Right [facility]: Teradose 4D [facility]: [employer] RADIATION DOSE: mGy. LIMITATIONS: None. FINDINGS: FACIAL BONES: No fracture or bone lesion. ORBITS: Intact. No fracture. Symmetric intact globes and retroorbital soft tissues. PARANASAL SINUSES: Maxillary, ethmoid, and sphenoid mucosal thickening. No fluid. No nasal polyps. Maxillary sinus outlets are patent. SOFT TISSUES: No mass or edema. INFERIOR BRAIN: Limited view. No acute findings. OTHER: No other significant finding. IMPRESSION: No fracture. TECHNICAL DOCUMENTATION: JOB ID: [id number] [place]-72 Quality ID # 436: Final reports with documentation of one or more dose reduction techniques (e.g., Au tomated exposure control, adjustment of the mA and/or kV according to patient size, use of iterative reconstruction technique) 2010 [employer]- All Rights Reserved Reading location - IP/workstation name: [email or web address]
--- NOTE | 2018-02-15 20:02 | RADIOLOGY REPORT (SQ) ---
EXAM DESCRIPTION: CT ABD/PELVIS WITH IV ONLY COMPLETED DATE/TIME: 02/15/2018 7:52 pm REASON FOR STUDY: abdominal pain COMPARISON: 02/02/2018 TECHNIQUE: CT scan of the abdomen and pelvis performed using helical scanning technique with dynamic intravenous contrast injection. No oral contrast. Images reviewed with lung, soft tissue, and bone w indows. Reconstructed coronal and sagittal MPR images reviewed. Delayed images for evaluation of the urinary system also acquired. All images stored on PACS. All CT scanners at this facility use dose modulation, iterative reconstruction, and/or weight based d osing when appropriate to reduce radiation dose to as low as reasonably achievable (ALARA). [facility]: Dose Right [facility]: CareDose [facility]: Dose Right [facility]: Teradose 4D [facility]: [employer] CONTRAST TYPE AND DOSE: contrast/concentration: Isovue 350.00 mg/ml; Total Contrast Delivered: 100.0 ml; Total Saline Delivered: 72.0 ml RENAL FUNCTION: GFR > 60. RADIATION DOSE: CT Rad equipment meets quality standard of care and radiation dose reduction techniq ues were employed. CTDIvol: NaN - NaN mGy. DLP: 0 mGy-cm.. LIMITATIONS: None. FINDINGS: LOWER CHEST: No significant findings. LIVER: Normal size. No enhancing masses. No dilated ducts. SPLEEN: Normal size. No focal lesions. PANCREAS: No masses identified. No significant calcifications. No adjacent inflammation or peripancre atic fluid collections. Pancreatic duct not dilated. GALLBLADDER: Surgically absent. ADRENAL GLANDS: No significant masses. RIGHT KIDNEY AND URETER: No cysts identified. No solid masses identified. No calcified stones. No hyd ronephrosis or hydroureter. LEFT KIDNEY AND URETER: No cysts identified. No solid masses identified. No calcified stones. No hydr onephrosis or hydroureter. AORTA AND VESSELS: No aneurysm. No dissection. Renal arteries, SMA, celiac without significant stenos is. RETROPERITONEUM: No bulky retroperitoneal adenopathy. BOWEL AND PERITONEAL CAVITY: No obstruction or inflammatory changes. No free fluid. APPENDIX: Normal. PELVIS: No mass. No free fluid. Unremarkable bladder. ABDOMINAL WALL: No masses. No hernias. BONES: No acute findings. OTHER: No other significant finding. IMPRESSION: NO ACUTE FINDINGS IN THE ABDOMEN OR PELVIS ON CT SCAN WITH IV CONTRAST. TECHNICAL DOCUMENTATION: JOB ID: [id number] [place]-72 Quality ID # 436: Final reports with documentation of one or more dose reduction techniques (e.g., Au tomated exposure control, adjustment of the mA and/or kV according to patient size, use of iterative reconstruction technique) 2010 [employer]- All Rights Reserved Reading location - IP/workstation name: [email or web address]
--- NOTE | 2018-02-15 20:09 | RADIOLOGY REPORT (SQ) ---
EXAM DESCRIPTION: CHEST SINGLE VIEW COMPLETED DATE/TIME: 02/15/2018 7:57 pm REASON FOR STUDY: sob COMPARISON: 02/02/2018 TECHNIQUE: Single frontal radiographic view of the chest acquired. NUMBER OF VIEWS: One view. LIMITATIONS: None. FINDINGS: LUNGS AND PLEURA: No pneumothorax. No consolidation or pleural effusion. MEDIASTINUM AND HILAR STRUCTURES: Stable. HEART AND VASCULAR STRUCTURES: Stable. BONES: No acute findings. HARDWARE: None in the chest. OTHER: No other significant finding. IMPRESSION: NO ACUTE FINDINGS. TECHNICAL DOCUMENTATION: JOB ID: [id number] [place]-72 2010 [employer]- All Rights Reserved Reading location - IP/workstation name: [email or web address]
[2018-02-15 20:28] VITALS: BP 136/72
== END 2018-02-15 20:20 | disposition home or self-care (01) ==
LOC: ER 16:46
DX: S09.93XA Unspecified injury of face, initial encounter (principal); R51 Headache; M25.511 Pain in right shoulder; R07.9 Chest pain, unspecified; R10.84 Generalized abdominal pain; M25.529 Pain in unspecified elbow; W14.XXXA Fall from tree, initial encounter; F17.200 Nicotine dependence, unspecified, uncomplicated; F41.9 Anxiety disorder, unspecified; J45.909 Unspecified asthma, uncomplicated
CPT/HCPCS: 96376; 99284; 96361; 96374; 86900; 86901; 36415; 86850; 85025; 80053; 71045; 73080; 70450; 70486; 74177; J3010; J7030

== ENCOUNTER 2018-02-19 08:33 | Emergency (ER) | payer SELFPAY ==
[2018-02-19] MEDS ORDERED: PROMETHAZINE HCL INJ 25 MG/1 ML VIAL IV ONE (09:26)
[2018-02-19] MEDS ORDERED: NORMAL SALINE 1000 ML 1,000 ML IV ONE (09:26)
[2018-02-19] MEDS ORDERED: NORMAL SALINE 1000 ML 1,000 ML IV PRN (09:26)
[2018-02-19] MEDS ORDERED: FENTANYL CITRATE INJ/PF 100 MCG/2 ML AMPUL IV ONE (09:26)
[2018-02-19] MEDS ORDERED: KETOROLAC TROMETHAMINE INJ/PF 30 MG/1 ML SDV IV ONE (09:26)
--- NOTE | 2018-02-19 09:32 | ER Document Report ---
ED Medical Screen (RME) - General Chief Complaint: Skin Sore(s) Stated Complaint: SKIN ISSUE Time Seen by Provider: 02/19/18 09:20 Notes: 47 years old male presents today with disseminated skin rash since yesterday morning he claims., But he has been seen here a couple of times before for similar rashes. Complain of pain all over the body including joint pains. And hip pain. No fever chills or other constitutional symptoms. On examination follicular rash was noted throughout the whole body which were tender on palpation and blanching. There are areas of macular rash which were warm to touch. TRAVEL OUTSIDE OF THE [place] IN LAST 30 DAYS: No - Related Data Allergies/Adverse Reactions: No Known Allergies Allergy (Verified 02/19/18 08:36) Past Medical History - Social History Frequency of alcohol use: Occasional - Past Medical History Cardiac Medical History: Denies: Hx Coronary Artery Disease, Hx Peripheral Vascular Disease Pulmonary Medical History: Reports: Hx Asthma Denies: Hx COPD Endocrine Medical History: Denies: Hx Diabetes Mellitus Type 2 Renal/ Medical History: Denies: Hx End Stage Renal Disease, Hx Peritoneal Dialysis GI Medical History: Reports: Hx Cirrhosis - Hepatitis C, Hx Gastroesophageal Reflux Disease Musculoskeltal Medical History: Denies Hx Arthritis Skin Medical History: Denies Hx Eczema, Denies Hx Psoriasis Psychiatric Medical History: Denies: Hx Depression Past Surgical History: Reports: Hx Cholecystectomy, Hx Orthopedic Surgery - Left hand - Immunizations Hx Diphtheria, Pertussis, Tetanus Vaccination: Yes History of Influenza Vaccine for 03/2017 - 08/2017 Season: Yes Influenza Administration Date for 03/2017 - 08/2017 Season: 03/23/17 Physical Exam - Vital signs Vitals: Temp Pulse Resp BP Pulse Ox 97.9 F 74 18 133/74 H 96 02/19/18 09:03 02/19/18 09:03 02/19/18 09:03 02/19/18 09:03 02/19/18 09:03 Course - Vital Signs Vital signs: Temp Pulse Resp BP Pulse Ox 97.9 F 74 18 133/74 H 96 02/19/18 09:03 02/19/18 09:03 02/19/18 09:03 02/19/18 09:03 02/19/18 09:03
[2018-02-19 10:21] LABS: ABSOLUTE EOSINOPHILS # (AUTO) 0.2 10^3/uL (0.0-0.6); ABSOLUTE LYMPHOCYTES (AUTO) 1.5 10^3/uL (0.5-4.7); ABSOLUTE MONOCYTES (AUTO) 0.7 10^3/uL (0.1-1.4); BASOPHILS % (AUTO) 0.3 % (0-2); EOSINOPHILS % (AUTO) 1.5 % (0-6); HEMATOCRIT 39.2 % (37.9-51.0); HEMOGLOBIN 13.5 g/dL (13.5-17.0); LYMPHOCYTES % (AUTO) 12.9 % (13-45); MEAN CORPUSCULAR HEMOGLOBIN 30.7 pg (27.0-33.4); MEAN CORPUSCULAR HGB CONC 34.4 g/dL (32.0-36.0); MEAN CORPUSCULAR VOLUME 89 fl (80-97); MONOCYTES % (AUTO) 6.4 % (3-13); PLATELET COUNT 383 10^3/uL (150-450); RED BLOOD COUNT 4.39 10^6/uL (4.35-5.55); RED CELL DISTRIBUTION WIDTH 12.7 % (11.5-14.0); SEGMENTED NEUTROPHILS % (AUTO) 78.9 % (42-78); TOTAL CELLS COUNTED % (AUTO) 100 %; WHITE BLOOD COUNT 11.4 10^3/uL (4.0-10.5)
[2018-02-19 10:41] LABS: ALANINE AMINOTRANSFERASE 43 U/L (21-72); ALBUMIN 3.9 g/dL (3.5-5.0); ALKALINE PHOSPHATASE 276 U/L (38-126); ANION GAP 12 (5-19); ASPARTATE AMINO TRANSFERASE 48 U/L (17-59); BILIRUBIN,DIRECT 0.3 mg/dL (0.0-0.4); BILIRUBIN,TOTAL 0.4 mg/dL (0.2-1.3); BLOOD UREA NITROGEN 14 mg/dL (7-20); C-REACTIVE PROTEIN 31.4 mg/L (<10.0); CALCIUM 9.1 mg/dL (8.4-10.2); CARBON DIOXIDE 26 mmol/L (22-30); CHLORIDE 103 mmol/L (98-107); GLUCOSE 96 mg/dL (75-110); POTASSIUM 4.6 mmol/L (3.6-5.0); SODIUM 141.1 mmol/L (137-145); TOTAL PROTEIN 7.2 g/dL (6.3-8.2)
[2018-02-19] MEDS ORDERED: DOXYCYCLINE HYCLATE 100 MG TABLET PO ONE (11:06)
[2018-02-19 11:07] VITALS: BP 140/75
[2018-02-19 11:12] LABS: ERYTHROCYTE SEDIMENTATION RATE 25 mm/hr (0-15)
--- NOTE | 2018-02-19 11:12 | ER Document Report ---
ED Skin Rash/Insect Bite/Abscs - General Chief Complaint: Skin Sore(s) Stated Complaint: SKIN ISSUE Time Seen by Provider: 02/19/18 09:20 Mode of Arrival: Ambulatory Notes: 47-year-old male presents to ED for disseminated skin rash. He states he has had this a couple times before and he told him it was eczema or psoriasis but this is neither 1. He states that there is pain all over. He states he has no fever or chills he just cannot stand this pain from this fracture. Patient does have a follicular rash to arms legs back had and chest. They are tender and antonino on palpation. Couple areas that are painful to the touch. TRAVEL OUTSIDE OF THE [place] IN LAST 30 DAYS: No - HPI Patient complains to provider of: Skin rash/lesion Onset: Last week Onset/Duration: Gradual, Worse Quality of pain: Sharp, Throbbing Severity: Moderate Pain Level: 4 Skin Character: Macules, Tenderness, Warm Quality of rash: Painful Identify cause: No Exacerbated by: Denies Relieved by: Denies Similar symptoms previously: Yes Recently seen / treated by doctor: No - Related Data Allergies/Adverse Reactions: No Known Allergies Allergy (Verified 02/19/18 08:36) Past Medical History - General Information source: Patient - Social History Smoking Status: Current Every Day Smoker Cigarette use (# per day): Yes Smoking Education Provided: Yes - 4 min Frequency of alcohol use: Occasional Drug Abuse: None Lives with: Family Family History: Reviewed & Not Pertinent, CAD, DM Patient has suicidal ideation: No Patient has homicidal ideation: No - Past Medical History Cardiac Medical History: Reports: None Pulmonary Medical History: Reports: Hx Asthma EENT Medical History: Reports: None Neurological Medical History: Reports: None Endocrine Medical History: Reports: None Renal/ Medical History: Reports: None. Denies: Hx End Stage Renal Disease, Hx Peritoneal Dialysis Malignancy Medical History: Reports None GI Medical History: Reports: Hx Cirrhosis - Hepatitis C, Hx Gastroesophageal Reflux Disease Musculoskeletal Medical History: Reports None Skin Medical History: Reports None Psychiatric Medical History: Reports: None Traumatic Medical History: Reports: None Infectious Medical History: Reports: None Past Surgical History: Reports: Hx Cholecystectomy, Hx Orthopedic Surgery - Left hand - Immunizations Hx Diphtheria, Pertussis, Tetanus Vaccination: Yes Review of Systems - Review of Systems Constitutional: No symptoms reported EENT: No symptoms reported Cardiovascular: No symptoms reported Respiratory: No symptoms reported Gastrointestinal: No symptoms reported Genitourinary: No symptoms reported Male Genitourinary: No symptoms reported Musculoskeletal: No symptoms reported Skin: Lesions - Generalized, Rash Hematologic/Lymphatic: No symptoms reported Neurological/Psychological: No symptoms reported -: Yes All other systems reviewed and negative Physical Exam - Vital signs Vitals: Temp Pulse Resp BP Pulse Ox 97.9 F 74 18 133/74 H 96 02/19/18 09:03 02/19/18 09:03 02/19/18 09:03 02/19/18 09:03 02/19/18 09:03 Interpretation: Normal - General General appearance: Appears well, Alert - HEENT Head: Normocephalic, Atraumatic Eyes: Normal Pupils: PERRL - Respiratory Respiratory status: No respiratory distress Chest status: Nontender Breath sounds: Normal Chest palpation: Normal - Cardiovascular Rhythm: Regular Heart sounds: Normal auscultation Murmur: No - Abdominal Inspection: Normal Distension: No distension Bowel sounds: Normal Tenderness: Nontender Organomegaly: No organomegaly - Back Back: Normal, Nontender - Extremities General upper extremity: Normal inspection, Nontender, Normal color, Normal ROM , Normal temperature General lower extremity: Normal inspection, Nontender, Normal color, Normal ROM , Normal temperature, Normal weight bearing. No: Amy's sign - Neurological Neuro grossly intact: Yes Cognition: Normal Orientation: AAOx4 [place] Coma Scale Eye Opening: Spontaneous Francesco Coma Scale Verbal: Oriented Francesco Coma Scale Motor: Obeys Commands Francesco Coma Scale Total: 15 Speech: Normal Motor strength normal: LUE, RUE, LLE, RLE Sensory: Normal - Psychological Associated symptoms: Normal affect, Normal mood - Skin Skin Temperature: Warm Skin Moisture: Dry Skin Color: Normal Location of irregularity: Generalized Character of irregularity: Maculopapular Irregularity with: Swelling, Tenderness, Warmth, Inflammation Course - Re-evaluation Re-evalutation: 02/19/18 18:01 Consulted with concerning this patient. He stated he felt the rash was folliculitis. He recommended starting the patient on doxycycline. Patient does work outside so he was instructed to use sunscreen every day when he goes outside to prevent sunburn. Patient was instructed that the medicine will make you burn a lot easier. Patient verbalized understanding of this precaution and patient was discharged home. - Vital Signs Vital signs: Temp Pulse Resp BP Pulse Ox 98.0 F 80 20 140/75 H 99 02/19/18 11:06 02/19/18 11:06 02/19/18 11:06 02/19/18 11:06 02/19/18 11:06 - Laboratory Result Diagrams: 02/19/18 09:56 02/19/18 09:56 Laboratory results interpreted by me: 02/19/18 02/19/18 09:56 09:56 WBC 11.4 H Seg Neutrophils % 78.9 H Lymphocytes % 12.9 L Absolute Neutrophils 9.0 H ESR 25 H Alkaline Phosphatase 276 H C-Reactive Protein 31.4 H Discharge - Discharge Clinical Impression: Folliculitis Condition: Stable Disposition: HOME, SELF-CARE Instructions: Family Physicians / Practices Additional Instructions: Folliculitis You have a skin infection called folliculitis. This occurs when bacteria infect the hair follicles of the skin. Typically, redness and small pustules are found where hair shafts enter the skin. Allergy, surface irritation, shaving, and exposure to hot tubs predispose to folliculitis. The usual treatment is antibiotic ointment, sometimes combined with cortisone-type medication. Warm compresses are often used. If the infection has moved deeper into the skin, oral antibiotics may be necessary. To avoid future episodes of folliculitis, you must identify (if possible) the factors which allowed this infection to start. If you develop increasing pain, swelling, fever, or red streaks, call the doctor or return for re-evaluation. Doxycycline Doxycycline (Vibramycin, Doryx) is an antibiotic of the tetracycline family. This type of drug is useful for infections of the respiratory tract and genital tract, and is sometimes used for intestinal infections. Unlike most tetracyclines, doxycycline can be taken with food. It is longer acting, and (usually) less prone to side effects than regular tetracycline. Tetracycline antibiotics can stain immature teeth and SHOULD NOT BE TAKEN BY CHILDREN, NURSING MOTHERS, OR WOMEN. Tetracyclines can make you more prone to sunburn. Abdominal cramping, nausea, and diarrhea are occasional side effects. Women may experience vaginal yeast infections. Call the doctor at once if you develop hives, itching, shortness of breath , or lightheadedness. SOAP CLEANSING: Gently wash the wound daily using a mild soap (like Ivory, Phisoderm, Neutrogena). Use warm water, rubbing gently until all debris, ooze, and crusting have been washed from the wound. Allow to dry briefly (about 10 minutes) after cleaning. Repeat this cleansing at least three times a day for the first two days and then once or twice a day. ANTIBIOTIC OINTMENT PROTECTION: Your wounds are such that dressing them is not practical or optional. After cleansing, you should apply a thin coating of antibiotic ointment ( Bacitracin, not Neosporin) to the wounds at least three times daily. This lessens infection risk, and may decrease the amount of scarring. Use a q-tip or dull butter knife, not your finger, to apply this ointment. Any debris or ooze which builds up in the ointment should be gently rubbed off with a sterile gauze pad. Harder crusting may need to be gently scrubbed off with a clean wash cloth with soap and warm water, perhaps applying a warm, wet wash cloth to the wound for ten minutes first. Development of redness, severe itching, or blistering may mean allergy to the ointment. See the doctor. FOLLOW-UP CARE: If you have been referred to a physician for follow-up care, call the physician s office for an appointment as you were instructed or within the next two days. If you experience worsening or a significant change in your symptoms, notify the physician immediately or return to the Emergency Department at any time for re-evaluation. Prescriptions: Doxycycline Monohydrate 100 mg PO BID #20 tablet Forms: Elevated Blood Pressure, Smoking Cessation Education, Return to Work
[2018-02-25 10:33] LABS: ROCKY MTN SPOTTED FEV IGG EIA Positive (Negative)
== END 2018-02-19 11:21 | disposition home or self-care (01) ==
LOC: ER 08:33
DX: L73.9 Follicular disorder, unspecified (principal); J45.909 Unspecified asthma, uncomplicated; F17.210 Nicotine dependence, cigarettes, uncomplicated; Z71.6 Tobacco abuse counseling
CPT/HCPCS: 99406; 99283; 96361; 96374; 96375; 36415; 87040; 85025; 85652; 86140; 80053; 86757 ×2; J3010; J1885; J2550; J7030

== ENCOUNTER 2018-03-20 20:51 | Emergency (ER) | payer SELFPAY ==
[2018-03-20] MEDS ORDERED: HYDROMORPHONE HCL INJ/PF 2 MG/ML AMPULE IM ONE (22:14)
[2018-03-20] MEDS ORDERED: ONDANSETRON 4 MG TAB.RAPDIS PO ONE (22:14)
--- NOTE | 2018-03-20 22:22 | ER Document Report ---
ED Extremity Problem, Upper - General Chief Complaint: Arm Pain Stated Complaint: FELL AND FELT RIP IN LEFT ELBOW AND BICEP Time Seen by Provider: 03/20/18 21:41 Notes: Patient is a 47-year-old male that presents to the emergency department for chief complaint of left arm pain after injury. Patient states that he was working on a ladder around 2 PM today, his foot slipped and as he fell he try to reach to grab the ladder, his left arm got stuck, and twisted and he felt a pop in his elbow. He describes the pain is severe at the elbow joint, and noticed bruising, the pain was not tolerable so he decided come to the emergency department. He describes it as a constant sharp and aching sensation that he rates as a 10 out of 10 at this time. Worse with any movement of his left arm. Denies prior injuries in the past. He denies having any pain in his shoulder or wrist. Past Medical History: Hepatitis C, cirrhosis Past Surgical History: Hand surgery, cholecystectomy Social History: Admits to smoking cigarettes daily, denies alcohol or drug use. Family History: Reviewed and noncontributory for presenting illness Allergies: Reviewed, see documented allergy list. REVIEW OF SYSTEMS: Unless otherwise stated in this report the patient's positive and negative responses for review of systems for constitutional, eyes, ENT, cardiovascular, respiratory, gastrointestinal, neurological, genitourinary, musculoskeletal, and integumentary systems and related systems to the presenting problem are either as stated in the HPI or were not pertinent or were negative for the symptoms and/or complaints related to the presenting medical problem. PHYSICAL EXAMINATION: Vital signs reviewed, nursing noted reviewed. GENERAL: Well-appearing, well-nourished and appears uncomfortable. HEAD: Atraumatic, normocephalic. EYES: Eyes appear normal, extraocular movements intact, sclera anicteric, conjunctiva are normal. ENT: nares patent, oropharynx clear without exudates. Moist mucous membranes. NECK: Normal range of motion, supple without lymphadenopathy LUNGS: Breath sounds clear to auscultation bilaterally and equal. No wheezes rales or rhonchi. HEART: Regular rate and rhythm without murmurs ABDOMEN: Soft, nontender, normoactive bowel sounds. No rebound, guarding, or rigidity. No masses appreciated. EXTREMITIES: Patient noted to have bruising, edema, and tenderness at the insertion of the distal biceps tendon. No tenderness with palpation to the left shoulder, and normal range of motion of the shoulder. He does have significant pain with range of motion of the left elbow. The rest and forearm are unremarkable. Rest the patient's extremity exam is grossly unremarkable. NEUROLOGICAL: No focal neurological deficits. Moves all extremities spontaneously Motor and sensory grossly intact on exam. PSYCH: Normal mood, normal affect. SKIN: Warm, Dry, normal turgor, no rashes or lesions noted on exposed skin TRAVEL OUTSIDE OF THE [place] IN LAST 30 DAYS: No - Related Data Allergies/Adverse Reactions: No Known Allergies Allergy (Verified 02/19/18 08:36) Past Medical History - Social History Smoking Status: Current Every Day Smoker Family History: Reviewed & Not Pertinent, CAD, DM - Past Medical History Cardiac Medical History: Denies: Hx Coronary Artery Disease, Hx Peripheral Vascular Disease Pulmonary Medical History: Reports: Hx Asthma Denies: Hx COPD Endocrine Medical History: Denies: Hx Diabetes Mellitus Type 2 Renal/ Medical History: Denies: Hx End Stage Renal Disease, Hx Peritoneal Dialysis GI Medical History: Reports: Hx Cirrhosis - Hepatitis C, Hx Gastroesophageal Reflux Disease Musculoskeletal Medical History: Denies Hx Arthritis Skin Medical History: Denies Hx Eczema, Denies Hx Psoriasis Psychiatric Medical History: Denies: Hx Depression Past Surgical History: Reports: Hx Cholecystectomy, Hx Orthopedic Surgery - Left hand - Immunizations Hx Diphtheria, Pertussis, Tetanus Vaccination: Yes Physical Exam - Vital signs Vitals: Temp Pulse Resp BP Pulse Ox 98.2 F 110 H 20 133/75 H 95 03/20/18 21:01 03/20/18 21:01 03/20/18 21:01 03/20/18 21:01 03/20/18 21:01 Course - Re-evaluation Re-evalutation: Patient seen and examined vital signs reviewed. Patint was evaluated and treated as appropriate for the patient's presenting symptoms and complaint, with consideration of any critical or life threatening conditions that may be associated with their obtained history and exam as noted above. Patient was treated with IM Dilaudid, and oral Zofran and placed in a sling with an Kleber wrap around his bicep The patient was re-evaluated and was improved from a pain standpoint Evaluation was most consistent with distal biceps tendon rupture, patient was referred to orthopedic surgery, given a dispense pack of [place] to take for his pain, patient cannot receive NSAIDs due to his liver cirrhosis, patient was also given a prescription for oxycodone, advised to use the sling as much as possible. Patient was agreeable to plan of care. Plan of care was discussed with the patient at this point, after careful consideration I feel that that patient can be discharged from the emergency department, the patient was educated treatments and reasons to return to the emergency department based on their presumed diagnosis as noted above, they were advised to followup with a primary care physician in 2-3 days. Patient was agreeable to plan of care. *Note is created using voice recognition software and may contain spelling, syntax or grammatical errors. - Vital Signs Vital signs: Temp Pulse Resp BP Pulse Ox 98.3 F 88 18 135/79 H 99 03/20/18 22:30 03/20/18 22:30 03/20/18 22:30 03/20/18 22:30 03/20/18 22:30 Discharge - Discharge Clinical Impression: Rupture of left distal biceps tendon Qualifiers: Encounter type: initial encounter Qualified Code(s): S46.212A - Strain of muscle, fascia and tendon of other parts of biceps, left arm, initial encounter Condition: Stable Disposition: HOME, SELF-CARE Instructions: Tendonitis ([facility]) Additional Instructions: YOU HAVE RUPTURED YOUR BICEPS TENDON, YOU SHOULD APPLY ICE OR A WARM COMPRESS FOR 20 MINUTES ON THEN 20 MINUTES OFF NEEDED FOR PAIN. PLEASE FOLLOW-UP WITH ORTHOPEDICS SOON POSSIBLE. TAKE PAIN MEDICATION FOR BREAK THROUGH PAIN, USE THE SLING MUCH POSSIBLE. Prescriptions: Oxycodone HCl [Oxycontin Ir 5 Mg Tablet] 1 mg PO Q8H PRN #15 tablet PRN Reason: For Pain Referrals: IFEANYI VILLALOBOS MD [ACTIVE STAFF] - 03/23/18 (CALL FOR APPOINTMENT. )
[2018-03-20] MEDS ORDERED: HYDROCODONE/ACETAMINOPHEN 5-325 MG (6 TAB/ER DISP) PO PRN (22:27)
[2018-03-20 22:40] VITALS: BP 135/79
== END 2018-03-20 22:34 | disposition home or self-care (01) ==
LOC: ER 20:51
DX: S46.212A Strain of muscle, fascia and tendon of other parts of biceps, left arm, initial encounter (principal); W11.XXXA Fall on and from ladder, initial encounter; F17.210 Nicotine dependence, cigarettes, uncomplicated; Z90.49 Acquired absence of other specified parts of digestive tract; Z86.19 Personal history of other infectious and parasitic diseases
CPT/HCPCS: 99283; 96372; S0119; J1170

== ENCOUNTER 2018-03-24 18:29 | Emergency (ER) | payer SELFPAY ==
[2018-03-24 18:43] VITALS: BP 126/57
--- NOTE | 2018-03-24 19:23 | ER Document Report ---
ED Fall - General Chief Complaint: Fall Injury Stated Complaint: FALL/ARM AND KNEE PAIN Time Seen by Provider: 03/24/18 18:48 Mode of Arrival: Ambulatory Information source: Patient Notes: 47-year-old male presents to ED for complaint of continued left arm and right knee pain. He was seen here on Friday after the accident and was prescribed narcotics at the time. He was also treated with a Kleber wrap and a sling. He states he has not been wearing the sling has not followed up with orthopedics and is run out of his pain medicine. He states he thought he could just not go to the orthopedic with a ruptured bicep tendon. He also states he has some pain in his right knee but this is been long-term and no new injuries for that. TRAVEL OUTSIDE OF THE [place] IN LAST 30 DAYS: No - HPI Occurred: Last week Where: Outdoors Context: Fell from height - Fell off a ladder on Friday Associated symptoms: None Location of injury/pain: Knee, Upper extremity Quality of pain: Achy, Sharp Severity: Moderate Pain Level: 4 - Related data Allergies/Adverse Reactions: No Known Allergies Allergy (Verified 02/19/18 08:36) Past Medical History - General Information source: Patient - Social History Smoking Status: Current Every Day Smoker Cigarette use (# per day): Yes - Every day smokes cigarettes Smoking Education Provided: Yes - 4 min Family History: Reviewed & Not Pertinent, CAD, DM Patient has suicidal ideation: No Patient has homicidal ideation: No - Past Medical History Cardiac Medical History: Reports: None Pulmonary Medical History: Reports: Hx Asthma EENT Medical History: Reports: None Neurological Medical History: Reports: None Endocrine Medical History: Reports: None Renal/ Medical History: Reports: None Malignancy Medical History: Reports None GI Medical History: Reports: Hx Cirrhosis - Hepatitis C, Hx Gastroesophageal Reflux Disease, Hx Hepatitis - c Musculoskeletal Medical History: Reports Hx Musculoskeletal Deformity, Reports Hx Musculoskeletal Trauma Skin Medical History: Reports None Psychiatric Medical History: Reports: None Traumatic Medical History: Reports: None Infectious Medical History: Reports: Hx Hepatitis Past Surgical History: Reports: Hx Cholecystectomy, Hx Orthopedic Surgery - Left hand - Immunizations Hx Diphtheria, Pertussis, Tetanus Vaccination: Yes Review of Systems - Review of Systems Constitutional: No symptoms reported EENT: No symptoms reported Cardiovascular: No symptoms reported Respiratory: No symptoms reported Gastrointestinal: No symptoms reported Genitourinary: No symptoms reported Male Genitourinary: No symptoms reported Musculoskeletal: Other - Severe pain to the left lower arm with decreased range of motion to the elbow. Has full range of motion of the hand and wrist. Skin: No symptoms reported Hematologic/Lymphatic: No symptoms reported Neurological/Psychological: No symptoms reported Physical Exam - Vital signs Vitals: Temp Pulse Resp BP Pulse Ox 98.8 F 98 16 126/57 H 98 03/24/18 18:42 10 18:42 03/24/18 18:42 03/24/18 18:42 03/24/18 18:42 Interpretation: Normal - General General appearance: Appears well, Alert - HEENT Head: Normocephalic, Atraumatic Eyes: Normal Pupils: PERRL - Respiratory Respiratory status: No respiratory distress Chest status: Nontender Breath sounds: Normal Chest palpation: Normal - Cardiovascular Rhythm: Regular Heart sounds: Normal auscultation Murmur: No - Abdominal Inspection: Normal Distension: No distension Bowel sounds: Normal Tenderness: Nontender Organomegaly: No organomegaly - Back Back: Normal, Nontender - Extremities General upper extremity: Normal color, Normal temperature General lower extremity: Normal inspection, Nontender, Normal color, Normal ROM , Normal temperature, Normal weight bearing. No: Amy's sign Forearm: Tender, Other - Swelling and edema to the distal bicep tendon. Full range of motion of the shoulder wrist and hand with decreased range of motion to the elbow rest of the upper arm exam is grossly negative - Neurological Neuro grossly intact: Yes Cognition: Normal Orientation: AAOx4 [place] Coma Scale Eye Opening: Spontaneous [place] Coma Scale Verbal: Oriented Francesco Coma Scale Motor: Obeys Commands [place] Coma Scale Total: 15 Speech: Normal Motor strength normal: LUE, RUE, LLE, RLE Sensory: Normal - Psychological Associated symptoms: Normal affect, Normal mood - Skin Skin Temperature: Warm Skin Moisture: Dry Skin Color: Normal Course - Vital Signs Vital signs: Temp Pulse Resp BP Pulse Ox 98.8 F 98 16 126/57 H 98 03/24/18 18:42 18 18:42 03/24/18 18:42 03/24/18 18:42 03/24/18 18:42 Discharge - Discharge Clinical Impression: Rupture of left distal biceps tendon Qualifiers: Encounter type: subsequent encounter Qualified Code(s): S46.212D - Strain of muscle, fascia and tendon of other parts of biceps, left arm, subsequent encounter Right knee pain Qualifiers: Chronicity: unspecified Qualified Code(s): M25.561 - Pain in right knee Condition: Stable Disposition: HOME, SELF-CARE Additional Instructions: You were instructed on Friday to follow-up with orthopedic for your ruptured bicep tendon. It is extremely important that you call orthopedics tomorrow and follow-up as instructed You were also provided with a Kleber wrap and sling and instructed to use these until followed up with orthopedics. It is extremely an important that you use the sling and Kleber wrap as instructed as well as ice and elevation. KLEBER WRAP: A compression dressing (kleber wrap) has been placed. This helps hold the area still. It limits swelling and internal bleeding. The wrap should be comfortably snug -- not tight. You should feel a sense of pressure, but not severe pain under the wrap. Unless the physician tells you otherwise, you can adjust the wrap for comfort. If the wrap causes symptoms suggesting it's too tight -- uncomfortable pressure, swelling or discoloration beyond the wrap, numbness, or severe pain - - you must loosen the wrap. If these symptoms don't resolve promptly, return for re-evaluation. ICE & ELEVATION: Apply ice packs frequently against the painful area. Many different schedules are recommended, such as "20 minutes on, 20 minutes off" or "one hour ice, two hours rest." If you need to work, you may need to go longer between ice treatments. You should plan to have the area ice packed AT LEAST one- fourth of the time. The ice should be applied over the wrap, tape, or splint, or over a layer of cloth -- not directly against the skin. Some ice bags have a built-in cloth and can be put directly on the skin. Your injured part should be elevated as much as possible over the next 48 hours. Try to keep the injury above the level of the heart. Avoid use of the injured area. Elevation and rest will decrease the swelling. ORAL NARCOTIC MEDICATION: You have been given a prescription for pain control. This medication is a narcotic. It's best taken with food, as nausea can result if taken on an empty stomach. Don't operate machinery or drive within six hours of taking this medication. Do not combine this medicine with alcohol, or with any medication which can cause sedation (such as cold tablets or sleeping pills) unless you get permission from the physician. Narcotics tend to cause constipation. If possible, drink plenty of fluids and eat a diet high in fiber and fruits. Please be aware that prescription narcotics also have the potential for abuse. People become addicted to these medications because of the general sense of wellbeing that they induce. This feeling along with a significant reduction in tension, anxiety, and aggression provides a stimulating seductive quality to these drugs. Once your pain is under control, we encourage you to discard your unused narcotics. FOLLOW-UP CARE: If you have been referred to a physician for follow-up care, call the physician s office for an appointment as you were instructed or within the next two days. If you experience worsening or a significant change in your symptoms, notify the physician immediately or return to the Emergency Department at any time for re-evaluation. Prescriptions: Oxycodone HCl [Oxy-Ir 5 mg Tablet] 5 mg PO Q8HP PRN #3 tablet PRN Reason: Forms: Elevated Blood Pressure Referrals: IFEANYI VILLALOBOS MD [ACTIVE STAFF] - Follow up tomorrow
== END 2018-03-24 19:35 | disposition home or self-care (01) ==
LOC: ER 18:29
DX: S46.212A Strain of muscle, fascia and tendon of other parts of biceps, left arm, initial encounter (principal); M79.602 Pain in left arm; M25.561 Pain in right knee; W11.XXXA Fall on and from ladder, initial encounter; F17.210 Nicotine dependence, cigarettes, uncomplicated; Z90.49 Acquired absence of other specified parts of digestive tract
CPT/HCPCS: 99283

== ENCOUNTER 2018-03-28 20:38 | Emergency (ER) | payer SELFPAY ==
[2018-03-28] MEDS ORDERED: ASPIRIN 81 MG TABLET, CHEWABLE PO ONE (20:46)
--- NOTE | 2018-03-28 21:49 | RADIOLOGY REPORT (SQ) ---
Portable chest Compared to 02/15/2018. HISTORY: Chest pain. FINDINGS: The heart is not enlarged. Aorta is within normal limits. No consolidation or pleural effusion. No pulmonary edema or pneumothorax. IMPRESSION: No acute disease.
[2018-03-28] MEDS ORDERED: NORMAL SALINE 1000 ML 1,000 ML IV ONE (22:00)
[2018-03-28] MEDS ORDERED: PANTOPRAZOLE SODIUM 40 MG VIAL IV ONE (22:00)
[2018-03-28] MEDS ORDERED: HALOPERIDOL LACTATE INJ 5 MG/1 ML VIAL IV ONE (22:00)
--- NOTE | 2018-03-28 22:00 | ER Document Report ---
ED General - General Chief Complaint: Chest Pressure Stated Complaint: CHEST PAIN Time Seen by Provider: 03/28/18 20:52 Notes: Patient is a 47-year-old male with a past medical history of polysubstance abuse , prior cholecystectomy, who presents complaining of epigastric abdominal pain with associated nausea, vomiting, belching and chest burning. States the symptoms are gradually over the last 2 days and have been constant since that time. He has not tried nothing to improve his symptoms. Eating or drinking worsens the symptoms. He states that he has had several evaluations in the emergency department for the same without relief. He does admit to ongoing methamphetamine abuse including today. He does not have a primary care doctor. He denies any abdominal pain other than to the epigastrium. Does describe this as a dull, throbbing, burning pain. He denies any cardiac history. No history of DVT or pulmonary embolus. He denies any associated shortness of breath. TRAVEL OUTSIDE OF THE [place] IN LAST 30 DAYS: No - Related Data Allergies/Adverse Reactions: No Known Allergies Allergy (Verified 02/19/18 08:36) Past Medical History - General Information source: Patient - Social History Smoking Status: Current Every Day Smoker Frequency of alcohol use: None Drug Abuse: Heroin, Marijuana, Methamphetamine Family History: Reviewed & Not Pertinent, CAD, DM Patient has suicidal ideation: No Patient has homicidal ideation: No - Past Medical History Cardiac Medical History: Denies: Hx Coronary Artery Disease, Hx Peripheral Vascular Disease Pulmonary Medical History: Reports: Hx Asthma Denies: Hx COPD Endocrine Medical History: Denies: Hx Diabetes Mellitus Type 2 Renal/ Medical History: Denies: Hx End Stage Renal Disease, Hx Peritoneal Dialysis GI Medical History: Reports: Hx Cirrhosis - Hepatitis C, Hx Gastroesophageal Reflux Disease, Hx Hepatitis Musculoskeletal Medical History: Denies Hx Arthritis, Reports Hx Musculoskeletal Deformity, Reports Hx Musculoskeletal Trauma Skin Medical History: Denies Hx Eczema, Denies Hx Psoriasis Psychiatric Medical History: Denies: Hx Depression Infectious Medical History: Reports: Hx Hepatitis Past Surgical History: Reports: Hx Cholecystectomy, Hx Orthopedic Surgery - Left hand - Immunizations Hx Diphtheria, Pertussis, Tetanus Vaccination: Yes Review of Systems - Review of Systems Notes: Constitutional: Negative for fever. HENT: Negative for sore throat. Eyes: Negative for visual changes. Cardiovascular: Positive for chest burning Respiratory: Negative for shortness of breath. Gastrointestinal: Positive for upper abdominal pain and vomiting Genitourinary: Negative for dysuria. Musculoskeletal: Negative for back pain. Skin: Negative for rash. Neurological: Negative for headaches, weakness or numbness. 10 point ROS negative except as marked above and in HPI. Physical Exam - Vital signs Vitals: Temp Pulse Resp BP 98.4 F 86 20 142/86 H 03/28/18 20:50 03/28/18 20:50 03/28/18 20:50 03/28/18 20:50 Interpretation: Hypertensive Notes: PHYSICAL EXAMINATION: GENERAL: Somewhat agitated, crying out intermittently HEAD: Atraumatic, normocephalic. EYES: Pupils equal round and reactive to light, extraocular movements intact, sclera anicteric, conjunctiva are normal. ENT: nares patent, oropharynx clear without exudates. Moderately dry mucous membranes. NECK: Normal range of motion, supple without lymphadenopathy LUNGS: Breath sounds clear to auscultation bilaterally and equal. No wheezes rales or rhonchi. HEART: Regular tachycardia without murmurs ABDOMEN: Soft, mild epigastric abdominal tenderness but no other areas of localized tenderness on palpation, normoactive bowel sounds. No guarding, no rebound. No masses appreciated. EXTREMITIES: Normal range of motion, no pitting or edema. No cyanosis. NEUROLOGICAL: No focal neurological deficits. Moves all extremities spontaneously and on command. PSYCH: Agitated, somewhat difficult to redirect SKIN: Warm, Dry, normal turgor, no rashes or lesions noted. Course - Re-evaluation Re-evalutation: 03/28/18 21:59 Patient presents with complaints of epigastric abdominal pain, nausea, vomiting. He complains of the pain rating up into his chest with a burning sensation. Patient also demonstrates multiple behavioral concerns here in the emergency department including having been witnessed on several occasions by staff sticking his fingers down his throat to induce vomiting. Overall picture is consistent with likely gastritis. Patient does admit to ongoing methamphetamine abuse including today. Patient has no focal abdominal tenderness on examination. Lipase is normal. No LFT changes. Based on history and exam, I do not suspect ACS, pulmonary embolus, SBO, mesenteric ischemia, acute pancreatitis, biliary pathology, or an abdominal aortic dissection. Patient has had improvement of symptoms here with a GI cocktail. At this time will discharge with return precautions and follow-up recommendations. Verbal discharge instructions given a the bedside and opportunity for questions given. Medication warnings reviewed. Patient is in agreement with this plan and has verbalized understanding of return precautions and the need for primary care follow-up in the next 24-72 hours. - Vital Signs Vital signs: Temp Pulse Resp BP Pulse Ox 98.5 F 86 23 H 143/93 H 99 03/29/18 00:00 03/28/18 20:50 03/29/18 00:00 03/29/18 00:00 03/29/18 00:00 - Laboratory Result Diagrams: 03/28/18 22:04 03/28/18 22:50 Laboratory results interpreted by me: 03/28/18 03/28/18 22:04 22:50 WBC 11.7 H Plt Count 734 H Seg Neutrophils % 86.2 H Lymphocytes % 11.3 L Monocytes % 2.0 L Absolute Neutrophils 10.1 H Glucose 117 H Direct Bilirubin 0.5 H Alkaline Phosphatase 197 H - Diagnostic Test Radiology reviewed: Image reviewed, Reports reviewed Radiology results interpreted by me: 03/29/18 02:30 Chest x-ray: No acute infiltrate or pneumothorax - EKG Interpretation by Me Additional EKG results interpreted by me: 03/29/18 02:30 Sinus rhythm. Rate 81. No ST elevations or depressions. QTC is 455. Discharge - Discharge Clinical Impression: Epigastric abdominal pain, Methamphetamine abuse Nausea and vomiting Qualifiers: Vomiting type: unspecified Vomiting Intractability: non-intractable Qualified Code(s): R11.2 - Nausea with vomiting, unspecified Condition: Good Disposition: HOME, SELF-CARE Additional Instructions: Your symptoms appear to be most consistent with stomach or upper intestinal irritation. Please begin taking famotidine 40 mg in the morning and 40 mg at night. This medicine can be purchased directly [id number]. You may also take medicine such as Pepto-Bismol or Tums to assist with your pain. Please return to emergency department immediately if you have worsening of your pain, shortness of breath, vomiting, become unable to exert yourself due to pain or difficulty breathing, you pass out, or have any pain that radiates into your arms, jaw, or back. Please also return if you have any additional symptoms that are concerning to you. As we have discussed, the most important thing is lifestyle changes. You need to avoid smoking, sodas, tea, coffee, alcohol, spicy foods, and acidic foods such as citrus fruits, tomato based products, berries, and most fruit juices. Prescriptions: Famotidine 40 mg PO BID #60 tablet Sucralfate [Carafate 1 gm Tablet] 1 gm PO ACHS #120 tablet
[2018-03-28 22:19] LABS: ABSOLUTE BASOPHILS # (AUTO) 0.1 10^3/uL (0.0-0.2); ABSOLUTE LYMPHOCYTES (AUTO) 1.3 10^3/uL (0.5-4.7); ABSOLUTE MONOCYTES (AUTO) 0.2 10^3/uL (0.1-1.4); ABSOLUTE NEUT (AUTO) 10.1 10^3/uL (1.7-8.2); BASOPHILS % (AUTO) 0.5 % (0-2); HEMATOCRIT 42.8 % (37.9-51.0); HEMOGLOBIN 14.7 g/dL (13.5-17.0); LYMPHOCYTES % (AUTO) 11.3 % (13-45); MEAN CORPUSCULAR HEMOGLOBIN 29.8 pg (27.0-33.4); MEAN CORPUSCULAR HGB CONC 34.2 g/dL (32.0-36.0); MEAN CORPUSCULAR VOLUME 87 fl (80-97); PLATELET COUNT 734 10^3/uL (150-450); RED BLOOD COUNT 4.92 10^6/uL (4.35-5.55); RED CELL DISTRIBUTION WIDTH 13.2 % (11.5-14.0); SEGMENTED NEUTROPHILS % (AUTO) 86.2 % (42-78); TOTAL CELLS COUNTED % (AUTO) 100 %; WHITE BLOOD COUNT 11.7 10^3/uL (4.0-10.5)
[2018-03-28 23:20] LABS: ALANINE AMINOTRANSFERASE 23 U/L (21-72); ALBUMIN 3.8 g/dL (3.5-5.0); ALKALINE PHOSPHATASE 197 U/L (38-126); ANION GAP 12 (5-19); ASPARTATE AMINO TRANSFERASE 20 U/L (17-59); BILIRUBIN,DIRECT 0.5 mg/dL (0.0-0.4); BILIRUBIN,TOTAL 0.6 mg/dL (0.2-1.3); BLOOD UREA NITROGEN 14 mg/dL (7-20); CALCIUM 9.7 mg/dL (8.4-10.2); CARBON DIOXIDE 23 mmol/L (22-30); CHLORIDE 105 mmol/L (98-107); GLUCOSE 117 mg/dL (75-110); LIPASE 61.5 U/L (23-300); POTASSIUM 4.6 mmol/L (3.6-5.0); SODIUM 139.6 mmol/L (137-145); TOTAL PROTEIN 7.5 g/dL (6.3-8.2)
[2018-03-29 00:18] VITALS: BP 143/93
--- NOTE | 2018-03-29 18:48 | EKG REPORT ---
SEVERITY:- NORMAL ECG - SINUS RHYTHM with SINUS ARRHYTHMIA VS BLOCKED APC : Confirmed by: Rohith Varma 29-Mar-2018 18:47:37
== END 2018-03-29 00:19 | disposition home or self-care (01) ==
LOC: ER 20:38
DX: R10.13 Epigastric pain (principal); R11.2 Nausea with vomiting, unspecified; F19.10 Other psychoactive substance abuse, uncomplicated; R07.9 Chest pain, unspecified; R14.2 Eructation; R10.10 Upper abdominal pain, unspecified; F17.200 Nicotine dependence, unspecified, uncomplicated; J45.909 Unspecified asthma, uncomplicated; Z90.49 Acquired absence of other specified parts of digestive tract
CPT/HCPCS: 93005; 99285; 96361; 96374; 96375; 36415; 83690; 85025; 80053; 84484; 71045; 93010; J1630; S0164; J7030

== ENCOUNTER 2018-05-17 13:46 | Emergency (ER) | payer SELFPAY ==
[2018-05-17 14:00] VITALS: BP 121/66
[2018-05-17] MEDS ORDERED: OXYCODONE-ACETAMINOPHEN 5-325 MG TABLET PO ONE (14:19)
--- NOTE | 2018-05-17 14:23 | ER Document Report ---
ED General - General Chief Complaint: Neck Problem Stated Complaint: ANIMAL INJURY Time Seen by Provider: 05/17/18 14:12 Information source: Patient Notes: 48-year-old male who supposedly 1 11:00 fell off a horse. There was a report that the patient got kicked by the horse but he states he did not get kicked by the horse. He states that the horse attempted to "dump on me" but missed. Patient ambulated home. He is unsure whether he lost consciousness or not initially. He denies any headache at this time. He complains of pain to the neck, left posterior ribs, left shoulder and left elbow. He denies any abdominal pain, pelvis pain, or lower extremity pain. Patient denies any weakness or numbness to his arms or legs. He denies any blurry vision, nausea, vomiting, or other reviews of systems. TRAVEL OUTSIDE OF THE [place] IN LAST 30 DAYS: No - HPI Onset: Other - See above Onset/Duration: Sudden Quality of pain: Achy Severity: Mild Pain Level: Denies Associated symptoms: Other - See above Exacerbated by: Denies Relieved by: Denies Similar symptoms previously: No Recently seen / treated by doctor: No - Related Data Allergies/Adverse Reactions: No Known Allergies Allergy (Verified 02/19/18 08:36) Past Medical History - Social History Smoking Status: Unknown if Ever Smoked Family History: Reviewed & Not Pertinent, CAD, DM - Past Medical History Cardiac Medical History: Denies: Hx Coronary Artery Disease, Hx Peripheral Vascular Disease Pulmonary Medical History: Reports: Hx Asthma Denies: Hx COPD Endocrine Medical History: Denies: Hx Diabetes Mellitus Type 2 Renal/ Medical History: Denies: Hx End Stage Renal Disease, Hx Peritoneal Dialysis GI Medical History: Reports: Hx Cirrhosis - Hepatitis C, Hx Gastroesophageal Reflux Disease, Hx Hepatitis Musculoskeletal Medical History: Denies Hx Arthritis, Reports Hx Musculoskeletal Deformity, Reports Hx Musculoskeletal Trauma Skin Medical History: Denies Hx Eczema, Denies Hx Psoriasis Psychiatric Medical History: Denies: Hx Depression Infectious Medical History: Reports: Hx Hepatitis Past Surgical History: Reports: Hx Cholecystectomy, Hx Orthopedic Surgery - Left hand - Immunizations Hx Diphtheria, Pertussis, Tetanus Vaccination: Yes Review of Systems - Review of Systems Constitutional: denies: Fever EENT: denies: Eye discharge, Nose discharge Cardiovascular: denies: Chest pain, Palpitations Respiratory: denies: Short of breath Gastrointestinal: denies: Vomiting Genitourinary: denies: Dysuria Musculoskeletal: denies: Leg swelling Skin: Other - no hives. denies: Rash Neurological/Psychological: Other - no slurred speech -: Yes All other systems reviewed and negative Physical Exam - Vital signs Vitals: Temp Pulse Resp BP Pulse Ox 98.6 F 110 H 20 121/66 99 05/17/18 13:57 05/17/18 13:57 05/17/18 13:57 05/17/18 13:57 05/17/18 13:57 Interpretation: Normal Notes: Reviewed vital signs and nursing note as charted by RN. CONSTITUTIONAL: Alert and oriented and responds appropriately to questions. Well -appearing; well-nourished HEAD: Normocephalic; atraumatic EYES: PERRL; full extraocular range of motion ENT: Normal nose; no rhinorrhea; moist mucous membranes; pharynx without lesions noted NECK: Supple without meningismus; really tender to the midline C-spine without step-offs CARD: Regular rate and rhythm; no murmurs; symmetric distal pulses RESP: Normal chest excursion without splinting or tachypnea; breath sounds clear and equal bilaterally; mild tenderness without crepitus to the left posterior ribs ABD/GI: Normal bowel sounds; non-distended; soft, non-tender; no palpable organomegaly or masses BACK: The back appears normal and is non-tender to palpation EXT: Normal ROM in all joints; non-tender to palpation; no edema SKIN: No acute lesions noted NEURO: CN 2-12 intact; 5/5 bilateral upper and lower extremity strength with sensation intact to light touch PSYCH: The patient's mood and manner are appropriate. Grooming and personal hygiene are appropriate. Course - Re-evaluation Re-evalutation: 05/17/18 14:23 Given the above history and physical examination we placed the patient in a cervical collar and will obtain a CT scan of the head, cervical spine, chest, left shoulder and left elbow. I do not believe laboratory work is necessary at this moment. 05/17/18 16:10 No change in neurologic status. Patient still has no focal neurological deficits. CT imaging is unremarkable. X-ray imaging on my preliminary interpretation shows no obvious rib fractures, pneumothoraces, infiltrates, or fractures to the left shoulder left elbow. There was some osteophytic lesions to the left elbow but no acute fractures. Patient will be discharged home with strict return precautions as well as Motrin and Tylenol instructions. Patient does admit to being a heroin abuser and I do not want to provide narcotics at this time. - Vital Signs Vital signs: Temp Pulse Resp BP Pulse Ox 98.6 F 110 H 20 121/66 99 05/17/18 13:57 05/17/18 13:57 05/17/18 13:57 05/17/18 13:57 05/17/18 13:57 Discharge - Discharge Clinical Impression: Closed head injury Qualifiers: Encounter type: initial encounter Qualified Code(s): S09.90XA - Unspecified injury of head, initial encounter Cervical strain, acute Qualifiers: Encounter type: initial encounter Qualified Code(s): S16.1XXA - Strain of muscle, fascia and tendon at neck level, initial encounter Contusion of left shoulder Qualifiers: Encounter type: initial encounter Qualified Code(s): S40.012A - Contusion of left shoulder, initial encounter Left elbow contusion Qualifiers: Encounter type: initial encounter Qualified Code(s): S50.02XA - Contusion of left elbow, initial encounter Condition: Good Disposition: HOME, SELF-CARE Additional Instructions: Comeback immediately with any vomiting, weakness or numbness, shortness of breath, fevers, or any other acute problems. For pain please take 600 mg of Motrin and 1 g of Tylenol every 6 hours.
--- NOTE | 2018-05-17 15:33 | RADIOLOGY REPORT (SQ) ---
EXAM DESCRIPTION: CT CERVICAL SPINE WITHOUT COMPLETED DATE/TIME: 05/17/2018 3:10 pm REASON FOR STUDY: 15, fall COMPARISON: None. TECHNIQUE: Axial images acquired through the cervical spine without intravenous contrast. Images re viewed with lung, soft tissue and bone windows. Reconstructed coronal and sagittal MPR images review ed. Images stored on PACS. All CT scanners at this facility use dose modulation, iterative reconstruction, and/or weight based d osing when appropriate to reduce radiation dose to as low as reasonably achievable (ALARA). [facility]: Dose Right [facility]: CareDose [facility]: Dose Right [facility]: Teradose 4D [facility]: [employer] RADIATION DOSE: CT Rad equipment meets quality standard of care and radiation dose reduction techniq ues were employed. CTDIvol: 25.1 mGy. DLP: 637 mGy-cm. mGy. LIMITATIONS: None. FINDINGS: ALIGNMENT: Anatomic. MINERALIZATION: Normal. VERTEBRAL BODIES: No fractures or dislocation. DISCS: Disc space narrowing with endplate sclerosis and small osteophytes at C5-C6. FACETS, LATERAL MASSES, POSTERIOR ELEMENTS: No fractures. No dislocation. No acute findings. HARDWARE: None in the spine. VISUALIZED RIBS: No fractures. LUNG APICES AND SOFT TISSUES: No significant or acute findings. OTHER: No other significant finding. 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 NO ACUTE FINDINGS. TECHNICAL DOCUMENTATION: JOB ID: [id number] Quality ID # [id number]: Final reports with documentation of one or more dose reduction techniques (e.g., Au tomated exposure control, adjustment of the mA and/or kV according to patient size, use of iterative reconstruction technique) 2010 [employer]- All Rights Reserved Reading location - IP/workstation name: [email or web address]
--- NOTE | 2018-05-17 15:34 | RADIOLOGY REPORT (SQ) ---
EXAM DESCRIPTION: CT HEAD WITHOUT COMPLETED DATE/TIME: 05/17/2018 3:10 pm REASON FOR STUDY: 15, fall COMPARISON: 02/15/2018. TECHNIQUE: Axial images acquired through the brain without intravenous contrast. Images reviewed wi th bone, brain and subdural windows. Additional sagittal and coronal reconstructions were generated. Images stored on PACS. All CT scanners at this facility use dose modulation, iterative reconstruction, and/or weight based d osing when appropriate to reduce radiation dose to as low as reasonably achievable (ALARA). [facility]: Dose Right [facility]: CareDose [facility]: Dose Right [facility]: Teradose 4D [facility]: Smart [employer] RADIATION DOSE: CT Rad equipment meets quality standard of care and radiation dose reduction techniq ues were employed. CTDIvol: 48.7 mGy. DLP: 1004 mGy-cm. mGy. LIMITATIONS: None. FINDINGS: VENTRICLES: Normal size and contour. CEREBRUM: No masses. No hemorrhage. No midline shift. No evidence for acute infarction. Normal gra y/white matter differentiation. No areas of low density in the white matter. CEREBELLUM: No masses. No hemorrhage. No alteration of density. No evidence for acute infarction. EXTRAAXIAL SPACES: No fluid collections. No masses. ORBITS AND GLOBE: No intra- or extraconal masses. Normal contour of globe without masses. CALVARIUM: No fracture. PARANASAL SINUSES: No fluid or mucosal thickening. SOFT TISSUES: No mass or hematoma. OTHER: No other significant finding. IMPRESSION: NORMAL BRAIN CT WITHOUT CONTRAST. EVIDENCE OF ACUTE STROKE: NO. COMMENT: Quality ID # [id number]: Final reports with documentation of one or more dose reduction techniques (e.g., Automated exposure control, adjustment of the mA and/or kV according to patient size, use of iterative reconstruction technique) TECHNICAL DOCUMENTATION: JOB ID: [id number] [employer]- All Rights Reserved Reading location - IP/workstation name: [email or web address]
[2018-05-17] MEDS ORDERED: IBUPROFEN 600 MG TABLET PO ONE (16:12)
--- NOTE | 2018-05-17 16:48 | RADIOLOGY REPORT (SQ) ---
EXAM DESCRIPTION: ELBOW LEFT AP/LATERAL COMPLETED DATE/TIME: 05/17/2018 3:02 pm REASON FOR STUDY: 15, fall off horse COMPARISON: None. NUMBER OF VIEWS: Two views. TECHNIQUE: AP and lateral radiographic images acquired of the left elbow. LIMITATIONS: None. FINDINGS: MINERALIZATION: Normal. BONES: No acute fracture or dislocation. No worrisome bone lesions. JOINT: No effusion. SOFT TISSUES: No soft tissue swelling. No foreign body. OTHER: No other significant finding. IMPRESSION: NEGATIVE STUDY OF THE LEFT ELBOW. NO RADIOGRAPHIC EVIDENCE OF ACUTE INJURY. TECHNICAL DOCUMENTATION: JOB ID: [id number] 1977 [employer]- All Rights Reserved Reading location - IP/workstation name: [email or web address]
--- NOTE | 2018-05-17 16:49 | RADIOLOGY REPORT (SQ) ---
EXAM DESCRIPTION: SHOULDER LEFT 2 OR MORE VIEWS COMPLETED DATE/TIME: 05/17/2018 3:02 pm REASON FOR STUDY: 15, fall off horse COMPARISON: None. NUMBER OF VIEWS: Three views. TECHNIQUE: Internal rotation, external rotation, and Y view images acquired of the left shoulder. LIMITATIONS: None. FINDINGS: MINERALIZATION: Normal. BONES: No acute fracture or dislocation. No worrisome bone lesions. JOINTS: No dislocation. VISUALIZED LUNGS AND RIBS: No pneumothorax. No rib fracture. SOFT TISSUES: No radiopaque foreign body. OTHER: No other significant finding. IMPRESSION: NEGATIVE STUDY OF THE LEFT SHOULDER. NO RADIOGRAPHIC EVIDENCE OF ACUTE INJURY. TECHNICAL DOCUMENTATION: JOB ID: [id number] [employer]- All Rights Reserved Reading location - IP/workstation name: [email or web address]
--- NOTE | 2018-05-17 16:49 | RADIOLOGY REPORT (SQ) ---
EXAM DESCRIPTION: CHEST 2 VIEWS COMPLETED DATE/TIME: 05/17/2018 3:02 pm REASON FOR STUDY: 15, fall off horse COMPARISON: 04/22/2018. EXAM PARAMETERS: NUMBER OF VIEWS: two views TECHNIQUE: Digital Frontal and Lateral radiographic views of the chest acquired. RADIATION DOSE: NA LIMITATIONS: none FINDINGS: LUNGS AND PLEURA: No opacities, masses or pneumothorax. No pleural effusion. MEDIASTINUM AND HILAR STRUCTURES: No masses or contour abnormalities. HEART AND VASCULAR STRUCTURES: Heart normal size. No evidence for failure. BONES: No acute findings. HARDWARE: None in the chest. OTHER: No other significant finding. IMPRESSION: NO ACUTE RADIOGRAPHIC FINDING IN THE CHEST. TECHNICAL DOCUMENTATION: JOB ID: [id number] [employer]- All Rights Reserved Reading location - IP/workstation name: [email or web address]
== END 2018-05-17 16:20 | disposition home or self-care (01) ==
LOC: ER 13:46
DX: S16.1XXA Strain of muscle, fascia and tendon at neck level, initial encounter (principal); S40.012A Contusion of left shoulder, initial encounter; S50.02XA Contusion of left elbow, initial encounter; S09.90XA Unspecified injury of head, initial encounter; M54.2 Cervicalgia; R07.81 Pleurodynia; M25.512 Pain in left shoulder; M25.522 Pain in left elbow; V80.010A Animal-rider injured by fall from or being thrown from horse in noncollision accident, initial encounter; F11.10 Opioid abuse, uncomplicated
CPT/HCPCS: 70450; 71046; 72125; 99284

== ENCOUNTER 2018-06-02 19:20 | Inpatient (IN) | payer SELFPAY ==
[2018-06-02] MEDS ORDERED: VANCOMYCIN HCL INJ 1000 MG VIAL IV ONE ×2 (20:25→22:15)
--- NOTE | 2018-06-02 20:25 | ER Document Report ---
ED Medical Screen (RME) - General Chief Complaint: Hand Swelling Stated Complaint: HAND PAIN Time Seen by Provider: 06/02/18 20:20 TRAVEL OUTSIDE OF THE [place] IN LAST 30 DAYS: No - HPI Notes: 06/02/18 20:24 Patient is a 48-year-old male that presents to the emergency department for chief complaint of left hand edema. Patient noticed swelling in his left hand last night. The swelling has increased today. He reports pain in the left hand as well. He denies any trauma. He is a IV drug user but denies injecting into his left hand. He is left-hand dominant. He last shot up 5 days ago into his right arm. ROS: GENERAL: Denies fever of chills CV: Denies chest pain PHYSICAL EXAMINATION: GENERAL: Well-appearing, well-nourished and in no acute distress. HEAD: Atraumatic, normocephalic. EYES: Pupils equal round extraocular movements intact, conjunctiva are normal. ENT: Nares patent NECK: Normal range of motion LUNGS: No respiratory distress Musculoskeletal: Normal range of motion NEUROLOGICAL: Normal speech, normal gait. PSYCH: Normal mood, normal affect. MDM: Patient seen and examined for rapid initial assessment. Vital signs reviewed. A comprehensive ED assessment and evaluation of the patient, analysis of test results and completion of the medical decision making process will be conducted by additional ED providers. - Related Data Allergies/Adverse Reactions: No Known Allergies Allergy (Verified 02/19/18 08:36) Past Medical History - Past Medical History Cardiac Medical History: Denies: Hx Coronary Artery Disease, Hx Peripheral Vascular Disease Pulmonary Medical History: Reports: Hx Asthma Denies: Hx COPD Endocrine Medical History: Denies: Hx Diabetes Mellitus Type 2 Renal/ Medical History: Denies: Hx End Stage Renal Disease, Hx Peritoneal Dialysis GI Medical History: Reports: Hx Cirrhosis - Hepatitis C, Hx Gastroesophageal Reflux Disease, Hx Hepatitis Musculoskeltal Medical History: Denies Hx Arthritis, Reports Hx Musculoskeletal Deformity, Reports Hx Musculoskeletal Trauma Skin Medical History: Denies Hx Eczema, Denies Hx Psoriasis Psychiatric Medical History: Denies: Hx Depression Infectious Medical History: Reports: Hx Hepatitis Past Surgical History: Reports: Hx Cholecystectomy, Hx Orthopedic Surgery - Left hand - Immunizations Hx Diphtheria, Pertussis, Tetanus Vaccination: Yes History of Influenza Vaccine for 03/2017 - 08/2017 Season: Yes Influenza Administration Date for 03/2017 - 08/2017 Season: 03/23/17 Physical Exam - Vital signs Vitals: Temp Pulse Resp BP Pulse Ox 98.3 F 95 16 141/78 H 97 06/02/18 19:32 06/02/18 19:32 06/02/18 19:32 06/02/18 19:32 06/02/18 19:32 Course - Vital Signs Vital signs: Temp Pulse Resp BP Pulse Ox 98.3 F 95 16 141/78 H 97 06/02/18 19:32 06/02/18 19:32 06/02/18 19:32 06/02/18 19:32 06/02/18 19:32
--- NOTE | 2018-06-02 21:22 | RADIOLOGY REPORT (SQ) ---
EXAM DESCRIPTION: CLINICAL HISTORY: 48 years ,Male hand pain, all over, unknown injury COMPARISON: None. TECHNIQUE: LEFT hand, Three view FINDINGS: Significant soft tissue swelling is present over the hand particularly over the dorsal surface. There is loss of the metacarpophalangeal joint space of the third digit with marginal osteophytosis and subchondral sclerosis. Small erosive change along the base of the fourth proximal phalanx. No radiopaque foreign object noted. IMPRESSION: Significant soft tissue swelling over the hand Chronic degenerative changes at the MCP joint of the third digit with small erosive change seen along the proximal phalanx of the fourth digit
[2018-06-02] MEDS ORDERED: KETOROLAC TROMETHAMINE INJ/PF 30 MG/1 ML SDV IV ONE (22:23)
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
[2018-06-02 23:59] LABS: ABSOLUTE BASOPHILS # (AUTO) 0.1 10^3/uL (0.0-0.2); ABSOLUTE LYMPHOCYTES (AUTO) 2.4 10^3/uL (0.5-4.7); ABSOLUTE MONOCYTES (AUTO) 0.7 10^3/uL (0.1-1.4); ABSOLUTE NEUT (AUTO) 5.8 10^3/uL (1.7-8.2); BASOPHILS % (AUTO) 0.9 % (0-2); EOSINOPHILS % (AUTO) 0.5 % (0-6); HEMATOCRIT 39.3 % (37.9-51.0); HEMOGLOBIN 13.2 g/dL (13.5-17.0); LYMPHOCYTES % (AUTO) 26.4 % (13-45); MEAN CORPUSCULAR HEMOGLOBIN 28.7 pg (27.0-33.4); MEAN CORPUSCULAR HGB CONC 33.6 g/dL (32.0-36.0); MEAN CORPUSCULAR VOLUME 85 fl (80-97); MONOCYTES % (AUTO) 7.3 % (3-13); PLATELET COUNT 398 10^3/uL (150-450); RED BLOOD COUNT 4.61 10^6/uL (4.35-5.55); RED CELL DISTRIBUTION WIDTH 13.8 % (11.5-14.0); SEGMENTED NEUTROPHILS % (AUTO) 64.9 % (42-78); TOTAL CELLS COUNTED % (AUTO) 100 %; WHITE BLOOD COUNT 8.9 10^3/uL (4.0-10.5)
[2018-06-03 00:16] LABS: ANION GAP 10 (5-19); BLOOD UREA NITROGEN 14 mg/dL (7-20); CARBON DIOXIDE 27 mmol/L (22-30); CHLORIDE 99 mmol/L (98-107); GLUCOSE 110 mg/dL (75-110); POTASSIUM 4.9 mmol/L (3.6-5.0); SODIUM 135.9 mmol/L (137-145)
[2018-06-03] MEDS ORDERED: CEFTRIAXONE 1 GM/D5W RTU 1 GM/50 ML RTUPB IV ONE ×2 (00:21→05:21)
[2018-06-03] MEDS ORDERED: ONDANSETRON HCL INJ/PF 4 MG/2 ML SDV IV ONE (00:27)
[2018-06-03] MEDS ORDERED: FENTANYL CITRATE INJ/PF 100 MCG/2 ML AMPUL IV ONE (00:27)
--- NOTE | 2018-06-03 01:59 | RADIOLOGY REPORT (SQ) ---
EXAM DESCRIPTION: CT UPPER EXTREMITY WITH IV CONTRAST COMPLETED DATE/TME: 06/03/2018 00:31 CLINICAL HISTORY: 48 years, Male, eval hand for abscess CREAT 0.74 COMPARISON: Plain films 06/02/2018 TECHNIQUE: 425 Images stored on PACS. All CT scanners at this facility use dose modulation, iterative reconstruction, and/or weight based dosing when appropriate to reduce radiation dose to as low as reasonably achievable (ALARA). [facility]: Dose Right [facility]: CareDose [facility]: Dose Right [facility]: Teradose 4D [facility]: Novaliq LIMITATIONS: None. FINDINGS: Diffuse subcutaneous edema and inflammatory change of the hand and wrist as well as of the proximal forearm. No soft tissue gas. Degenerative changes of the hand and wrist are noted. No discrete enhancing abnormality. Olecranon spur noted. No focal fluid collection or abscess. IMPRESSION: Findings suggestive of cellulitis of the hand, wrist and proximal forearm. No acute osseous abnormality. No soft tissue gas. TECHNICAL DOCUMENTATION: Quality ID # 436: Final reports with documentation of one or more dose reduction techniques (e.g., Automated exposure control, adjustment of the mA and/or kV according to patient size, use of iterative reconstruction technique) copyright 2010 [employer]- All Rights Reserved
[2018-06-03] MEDS ORDERED: MORPHINE SULFATE 10 MG/ML INJ IV ONE (02:55)
[2018-06-03] MEDS ORDERED: NICOTINE 14 MG/24 HR PATCH.TD24 TD ONE (04:49)
[2018-06-03] MEDS ORDERED: MAG HYDROX/AL HYDROX/SIMETH SUSP 30 ML UDCUP PO PRN (05:17)
[2018-06-03] MEDS ORDERED: ONDANSETRON 4 MG TAB.RAPDIS PO PRN (05:17)
[2018-06-03] MEDS ORDERED: MAGNESIUM HYDROXIDE SUSP 30 ML UDCUP PO PRN (05:17)
[2018-06-03] MEDS ORDERED: ONDANSETRON HCL INJ/PF 4 MG/2 ML SDV IV PRN (05:17)
[2018-06-03] MEDS ORDERED: ALBUTEROL SULFATE 0.083% NEB 2.5 MG/3 ML AMPUL NEB PRN (05:24)
[2018-06-03] MEDS ORDERED: ACETAMINOPHEN 650 MG SUPP.RECT PR PRN (05:24)
[2018-06-03] MEDS ORDERED: MORPHINE SULFATE 10 MG/ML INJ IV PRN ×2 (05:24)
[2018-06-03] MEDS ORDERED: ACETAMINOPHEN 325 MG TABLET PO PRN (05:24)
[2018-06-03] MEDS: MORPHINE SULFATE 10 MG/ML INJ IV PRN ×4 (05:41→12:04)
[2018-06-03] MEDS: HEPARIN SOD (PORCINE) 5,000 UNIT/ML 1 ML SYRINGE SUBCUT SCH ×3 (06:29→21:18)
[2018-06-03] MEDS: CLINDAMYCIN 900 MG/D5W RTU 900 MG/50 ML RTUPB IV SCH ×3 (06:29→21:18)
[2018-06-03] MEDS ORDERED: IPRATROPIUM BROMIDE 0.02% NEB 0.5 MG/2.5 ML AMPUL NEB SCH (08:00)
[2018-06-03] MEDS ORDERED: BUDESONIDE NEB 0.5 MG/2 ML AMPUL NEB SCH (08:00)
[2018-06-03] MEDS ORDERED: LEVALBUTEROL HCL NEB 1.25 MG/3 ML AMPUL NEB SCH (08:00)
[2018-06-03] MEDS: FAMOTIDINE 20 MG TABLET PO SCH ×2 (09:54→21:20)
[2018-06-03] MEDS: DOCUSATE SODIUM 100 MG CAPSULE PO SCH ×2 (09:54→17:03)
[2018-06-03] MEDS ORDERED: OXYCODONE HCL IR 5 MG TABLET PO PRN (12:48)
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
[2018-06-03] MEDS ORDERED: KETOROLAC TROMETHAMINE INJ/PF 30 MG/1 ML SDV IV SCH (13:00)
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
[2018-06-03] MEDS: IBUPROFEN 800 MG TABLET PO SCH ×2 (15:07→21:19)
[2018-06-03] MEDS: OXYCODONE HCL IR 5 MG TABLET PO PRN ×2 (17:37→22:36)
[2018-06-03] MEDS ORDERED: TRAZODONE HCL 50 MG TABLET PO PRN (19:36)
[2018-06-03] MEDS: TRAMADOL HCL 50 MG TABLET PO PRN (21:18)
[2018-06-04] MEDS: TRAMADOL HCL 50 MG TABLET PO PRN ×2 (02:09→10:43)
[2018-06-04] MEDS: NICOTINE 21 MG/24 HR PATCH.TD24 TD PRN (02:10)
[2018-06-04] MEDS: OXYCODONE HCL IR 5 MG TABLET PO PRN ×5 (03:42→23:00)
[2018-06-04] MEDS: HEPARIN SOD (PORCINE) 5,000 UNIT/ML 1 ML SYRINGE SUBCUT SCH ×3 (05:39→22:59)
[2018-06-04] MEDS: IBUPROFEN 800 MG TABLET PO SCH ×3 (05:39→22:59)
[2018-06-04] MEDS: CLINDAMYCIN 900 MG/D5W RTU 900 MG/50 ML RTUPB IV SCH ×3 (05:40→23:00)
[2018-06-04 06:52] LABS: ABSOLUTE BASOPHILS # (AUTO) 0.1 10^3/uL (0.0-0.2); ABSOLUTE EOSINOPHILS # (AUTO) 0.1 10^3/uL (0.0-0.6); ABSOLUTE LYMPHOCYTES (AUTO) 1.9 10^3/uL (0.5-4.7); ABSOLUTE MONOCYTES (AUTO) 0.7 10^3/uL (0.1-1.4); ABSOLUTE NEUT (AUTO) 4.6 10^3/uL (1.7-8.2); BASOPHILS % (AUTO) 0.8 % (0-2); HEMATOCRIT 39.1 % (37.9-51.0); HEMOGLOBIN 13.2 g/dL (13.5-17.0); LYMPHOCYTES % (AUTO) 25.7 % (13-45); MEAN CORPUSCULAR HEMOGLOBIN 28.5 pg (27.0-33.4); MEAN CORPUSCULAR HGB CONC 33.7 g/dL (32.0-36.0); MEAN CORPUSCULAR VOLUME 85 fl (80-97); MONOCYTES % (AUTO) 9.6 % (3-13); PLATELET COUNT 320 10^3/uL (150-450); RED BLOOD COUNT 4.62 10^6/uL (4.35-5.55); RED CELL DISTRIBUTION WIDTH 13.8 % (11.5-14.0); SEGMENTED NEUTROPHILS % (AUTO) 61.9 % (42-78); TOTAL CELLS COUNTED % (AUTO) 100 %; WHITE BLOOD COUNT 7.5 10^3/uL (4.0-10.5)
[2018-06-04 07:10] LABS: ANION GAP 9 (5-19); BLOOD UREA NITROGEN 16 mg/dL (7-20); CALCIUM 8.8 mg/dL (8.4-10.2); CARBON DIOXIDE 28 mmol/L (22-30); CHLORIDE 101 mmol/L (98-107); CHOLESTEROL 109.46 mg/dL (0-200); GLUCOSE 104 mg/dL (75-110); POTASSIUM 4.8 mmol/L (3.6-5.0); SODIUM 137.6 mmol/L (137-145); TRIGLYCERIDES 179 mg/dL (<150)
[2018-06-04 07:21] LABS: DIRECT LDL 61 mg/dL (<100)
[2018-06-04 07:26] LABS: VLDL CHOLESTEROL 35.8 mg/dL (10-31)
[2018-06-04] MEDS: DOCUSATE SODIUM 100 MG CAPSULE PO SCH ×2 (10:43→18:00)
[2018-06-04] MEDS: FAMOTIDINE 20 MG TABLET PO SCH ×2 (10:43→23:00)
[2018-06-04] MEDS ORDERED: ALBUTEROL SULFATE HFA (90 MCG/PUFF) 200 PUFF/8.5 GM MDI IH PRN (10:54)
[2018-06-04] MEDS ORDERED: GUAIFENESIN 600 MG TABLET.SA PO ONE (10:55)
--- NOTE | 2018-06-04 13:50 | RADIOLOGY REPORT (SQ) ---
EXAM DESCRIPTION: U/S EXTREMITY NONVASCULAR LTD COMPLETED DATE/TIME: 06/04/2018 1:30 pm REASON FOR STUDY: Left hand abscess? COMPARISON: None. TECHNIQUE: Dynamic and static grayscale images acquired of the localized site of clinical concern an d recorded on PACS. Additional selected color Doppler and spectral images recorded. SITE OF CONCERN: Left hand. LIMITATIONS: None. FINDINGS: Diffuse cellulitis. There is a 5.7 x 2.7 cm hypoechoic lesion on the dorsal aspect with s urrounding hyperemia suspicious for abscess. IMPRESSION: Abscess. TECHNICAL DOCUMENTATION: JOB ID: [id number] [employer]- All Rights Reserved Reading location - IP/workstation name: [email or web address]
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
[2018-06-04] MEDS ORDERED: LORAZEPAM INJ 2 MG/1 ML VIAL IV PRN (17:46)
--- NOTE | 2018-06-04 21:23 | RADIOLOGY REPORT (SQ) ---
EXAM DESCRIPTION: MRI LT UPPER EXTREMITY COMBO COMPLETED DATE/TIME: 06/04/2018 7:15 pm REASON FOR STUDY: EVALUATE DORSAL HAND ABCESS COMPARISON: Left hand ultrasound 06/04/2018 CT left upper extremity 06/03/2018 Left hand three views 06/02/2018 and TECHNIQUE: Multiplanar imaging of the left hand to include T1-weighted, postcontrast T1-weighted, an d T2-weighted images. CONTRAST TYPE AND DOSE: 20 mL Dotarem. RENAL FUNCTION: GFR > 60. LIMITATIONS: None. FINDINGS: BONE MARROW: No marrow signal alteration. Specifically no marrow replacement or marrow ed godwin. No evidence for osteomyelitis. No cortical break through. SOFT TISSUES: 3 x 3 x 1.5 cm abscess is present within the extensor tendon sheath of the third and f ourth fingers, best shown on axial post contrast series 12 image 23. More proximally along the fourt h finger extensor tendon sheath, there is synovial fluid and tendon sheath thickening from tenosynovi tis, best shown on coronal image 17 and sagittal image 14. Diffuse dorsal left hand cellulitis is present. No abnormal deep tissue/muscle enhancement in the le ft hand. OTHER: No other significant finding. IMPRESSION: NO EVIDENCE FOR OSTEOMYELITIS. 3 x 3 x 1.5 cm abscess within the fourth finger extensor tendon sheath TECHNICAL DOCUMENTATION: JOB ID: [id number] [employer]- All Rights Reserved Reading location - IP/workstation name: [email or web address]
[2018-06-04] MEDS: GUAIFENESIN 600 MG TABLET.SA PO SCH (22:59)
[2018-06-05] MEDS: OXYCODONE HCL IR 5 MG TABLET PO PRN ×2 (03:00→14:31)
[2018-06-05] MEDS: HEPARIN SOD (PORCINE) 5,000 UNIT/ML 1 ML SYRINGE SUBCUT SCH ×2 (05:49→14:32)
[2018-06-05] MEDS: TRAMADOL HCL 50 MG TABLET PO PRN (05:49)
[2018-06-05] MEDS: CLINDAMYCIN 900 MG/D5W RTU 900 MG/50 ML RTUPB IV SCH ×2 (05:50→14:24)
[2018-06-05] MEDS: IBUPROFEN 800 MG TABLET PO SCH ×2 (05:50→14:25)
[2018-06-05 06:05] LABS: ABSOLUTE BASOPHILS # (AUTO) 0.1 10^3/uL (0.0-0.2); ABSOLUTE EOSINOPHILS # (AUTO) 0.1 10^3/uL (0.0-0.6); ABSOLUTE LYMPHOCYTES (AUTO) 1.6 10^3/uL (0.5-4.7); ABSOLUTE MONOCYTES (AUTO) 0.6 10^3/uL (0.1-1.4); ABSOLUTE NEUT (AUTO) 4.5 10^3/uL (1.7-8.2); BASOPHILS % (AUTO) 1.4 % (0-2); EOSINOPHILS % (AUTO) 1.8 % (0-6); HEMATOCRIT 41.5 % (37.9-51.0); HEMOGLOBIN 13.9 g/dL (13.5-17.0); LYMPHOCYTES % (AUTO) 22.6 % (13-45); MEAN CORPUSCULAR HEMOGLOBIN 28.2 pg (27.0-33.4); MEAN CORPUSCULAR HGB CONC 33.4 g/dL (32.0-36.0); MEAN CORPUSCULAR VOLUME 85 fl (80-97); MONOCYTES % (AUTO) 8.6 % (3-13); PLATELET COUNT 275 10^3/uL (150-450); RED BLOOD COUNT 4.92 10^6/uL (4.35-5.55); RED CELL DISTRIBUTION WIDTH 13.6 % (11.5-14.0); SEGMENTED NEUTROPHILS % (AUTO) 65.6 % (42-78); TOTAL CELLS COUNTED % (AUTO) 100 %; WHITE BLOOD COUNT 6.9 10^3/uL (4.0-10.5)
[2018-06-05 06:22] LABS: ANION GAP 13 (5-19); BLOOD UREA NITROGEN 15 mg/dL (7-20); CALCIUM 9.4 mg/dL (8.4-10.2); CARBON DIOXIDE 24 mmol/L (22-30); CHLORIDE 105 mmol/L (98-107); GLUCOSE 100 mg/dL (75-110); POTASSIUM 4.9 mmol/L (3.6-5.0); SODIUM 141.6 mmol/L (137-145)
[2018-06-05] MEDS ORDERED: RINGERS SOLUTION,LACTATED 1,000 ML IV PRN ×2 (07:29→13:50)
[2018-06-05] MEDS ORDERED: BACITRACIN INJ 50,000 UNIT VIAL ONE (08:44)
[2018-06-05] MEDS ORDERED: MORPHINE SULFATE 10 MG/ML INJ IV ONE (09:00)
[2018-06-05] MEDS ORDERED: FENTANYL CITRATE INJ/PF 100 MCG/2 ML AMPUL ONE ×2 (10:31→11:50)
[2018-06-05] MEDS ORDERED: MIDAZOLAM 2 MG/2 ML INJ ONE (10:31)
[2018-06-05] MEDS ORDERED: PROPOFOL INJ 200 MG/20 ML VIAL IV ONE (10:32)
[2018-06-05] MEDS ORDERED: DIPHENHYDRAMINE HCL 50 MG/ML VIAL IV PRN (11:22)
[2018-06-05] MEDS ORDERED: FENTANYL CITRATE INJ/PF 100 MCG/2 ML AMPUL IV PRN ×2 (11:22)
[2018-06-05] MEDS ORDERED: MORPHINE SULFATE 10 MG/ML INJ IV PRN (11:22)
[2018-06-05] MEDS ORDERED: ONDANSETRON HCL INJ/PF 4 MG/2 ML SDV IV PRN (11:22)
[2018-06-05] MEDS ORDERED: PROMETHAZINE HCL INJ 25 MG/1 ML VIAL IV PRN ×2 (11:22)
[2018-06-05] MEDS ORDERED: MEPERIDINE HCL/PF INJ 25 MG/1 ML DISP.SYRIN IV PRN (11:22)
[2018-06-05] MEDS ORDERED: OXYCODONE-ACETAMINOPHEN 5-325 MG TABLET PO PRN ×2 (11:22)
--- NOTE | 2018-06-05 11:29 | Operative Report ---
Operative Report DATE OF SURGERY: 06/05/18 PREOPERATIVE DIAGNOSIS: Left dorsal hand abscess OPERATION: Irrigation debridement left dorsal hand abscess SURGEON: FLORINA NOBLE ANESTHESIA: LMAC TISSUE REMOVED OR ALTERED: Cultures to microbiology ESTIMATED BLOOD LOSS: Minimal PROCEDURE: With the patient supine and operative table left upper extremities prepped and draped in sterile fashion. A 7/2 cm longitudinal incision was made over the dorsum of the third web space and sharp dissection was carried incision through the dermis into the underlying abscess. This is cultured. The abscess cavity is then explored and loculations disrupted. It is debrided meticulously. Is irrigated with 1 L of normal saline 10 bacitracin and bulb lavage. Is then packed with iodoform gauze. A sterile compressive dressing was applied and the patient's return to the PACU in satisfactory condition.
[2018-06-05] MEDS: FENTANYL CITRATE INJ/PF 100 MCG/2 ML AMPUL IV PRN ×2 (11:50→11:55)
[2018-06-05] MEDS: HYDROMORPHONE HCL INJ/PF 2 MG/ML AMPULE ONE ×2 (12:12→12:23)
[2018-06-05] MEDS ORDERED: HYDROMORPHONE HCL INJ/PF 2 MG/ML AMPULE IV ONE (13:45)
[2018-06-05] MEDS: FAMOTIDINE 20 MG TABLET PO SCH (14:25)
[2018-06-05] MEDS: DOCUSATE SODIUM 100 MG CAPSULE PO SCH (14:26)
[2018-06-05] MEDS: NICOTINE 21 MG/24 HR PATCH.TD24 TD PRN (14:26)
[2018-06-05] MEDS: GUAIFENESIN 600 MG TABLET.SA PO SCH (14:31)
[2018-06-05] MEDS ORDERED: OXYCODONE HCL IR 5 MG TABLET PO PRN (14:55)
[2018-06-05] MEDS ORDERED: OXYCODONE HCL IR 5 MG TABLET PO ONE (15:45)
[2018-06-05 16:44] VITALS: BP 111/56
--- NOTE | 2018-06-06 23:12 | DISCHARGE SUMMARY E ---
Discharge Summary NAME: EMELYN BRAVO : 1970 AGE: 48Y ADMITTED: 06/03/2018 DISCHARGED: 06/05/2018 CODE STATUS: Full code. CONSULTING AND OPERATIVE ORTHOPEDIST: Darion Jc M.D. DISCHARGE DIAGNOSES: 1. Cellulitis and abscess of the left hand, status post I and D. 2. Opiate dependency continuous. 3. Continued with IV drug use. 4. Methamphetamine abuse. 5. Hepatitis C. DISCHARGE MEDICATIONS: 1. Doxy 100 mg 1 tablet p.o. b.i.d., 20 tablets with zero refills. 2. OxyIR 5 mg p.o. q.6 hours p.r.n., 5 tablets with zero refills. 3. Ibuprofen 800 mg p.o. q.8 hours p.r.n., 30 tablets with zero refills. 4. Omeprazole 20 mg p.o. q.12 hours. WOUND CARE: The patient does need to keep a dressing in place. Pull the packing in 24 hours. Clean the site with Hibiclens wash twice daily and to cover with clean gauze and secure with tape. ACTIVITY: As tolerated. DIET: As tolerated. CONDITION: Fair. DIAGNOSTICS: Lab values are as follows - Hematology obtained on 06/05/2018; WBCs are 6.9, hemoglobin is 13.9, hematocrit is 41.5, platelet count is 275,000. Chemistry obtained on 06/05/2018; sodium is 141, potassium 4.9, chloride is 105, carbon dioxide 24, BUN 15, creatinine is 0.76, glucose 100. A1c is 5.2. Calcium is 9.4, magnesium is 2.2. Triglycerides are 179, cholesterol is 199, LDL is 61, VLDL is 35.8, HDL is 36. TSH is 1.08. Microbiology obtained on 06/03/2018; blood cultures are negative. Wound culture obtained on 06/05/2018 is pending. 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 VITAL SIGNS: Temperature is 98.5, pulse 90, respirations 20, blood pressure is 113/71, oxygen saturation is 100% on room air. HISTORY OF PRESENT ILLNESS: The patient is a 48-year-old male with a past medical history of IV drug use, hepatitis C that presented to the emergency department with left hand pain and left wrist pain. The patient reported a 3 day history of gradually worsening pain and erythema as well as edema. The patient denies any cuts, scrape, crush, or otherwise injury to his left hand and wrist. The patient denies IV injection to that extremity. He is left-handed, however, the patient's upper extremities are riddled with evidence of needle punctures bilaterally. The patient describes the pain as nonradiating, severely intense, throbbing and pressure to the hand. The patient was found to have a normal white count but given the cellulitis he was referred to the hospitalist for admission and management. The case was discussed with orthopedist that recommended admission to the hospitalist service. HOSPITAL COURSE: The patient was admitted to the medical unit. The patient received a total of 3 days of IV antibiotic therapy that included clindamycin. The patient had near resolution of cellulitis, however, with heat packs an area of abscess appeared. The patient was seen and evaluated by Dr. Jc. He underwent MRI and was taken to the OR for I and D. The patient was packed with Iodoform packing and was discharged back to the floor from the PACU. The patient has been cleared for discharge from a surgical perspective, of course the cultures will be followed up. At this time we will cover the patient for MRSA with oral Bactrim. Numerous times the patient has disappeared from off the floor. The patient has had company which did appear significantly impaired, actually falling asleep while talking to me. The patient has made numerous attempts to leave against medical advice and was exceedingly verbally abusive of staff members throughout his stay. DISCHARGE PLANNING: The patient is to follow up with the orthopedic service within 7 to 10 days for hospital follow up. TIME SPENT: On this discharge including assessment and plan, speciality collaboration is 35 minutes. DICTATING PHYSICIAN: ESDRAS AUSTIN NP [id number] PHY#: [id number] ID: [id number] JOB#: [id number] ACCT: [id number] cc:DIMITRIOS AGUILAR M.D. ESDRAS AUSTIN NP > MTDD
== END 2018-06-05 17:00 | disposition home or self-care (01) | DRG 603 ==
LOC: ER 19:20 → EH 06-03 04:15 → 4W 06-03 12:26
PROVIDERS: ADMIT Emergency Medicine; ATTEND Emergency Medicine
PROC: 3E0F73Z Introduction of Anti-inflammatory into Respiratory Tract, Via Natural or Artificial Opening (ICD-10-PCS; 2018-06-03)
PROC: 3E02340 Introduction of Influenza Vaccine into Muscle, Percutaneous Approach (ICD-10-PCS; 2018-06-03)
PROC: 0HBGXZZ Excision of Left Hand Skin, External Approach (ICD-10-PCS; principal; 2018-06-05 11:00)
DX: L03.114 Cellulitis of left upper limb (principal); F11.20 Opioid dependence, uncomplicated; B95.62 Methicillin resistant Staphylococcus aureus infection as the cause of diseases classified elsewhere; J45.909 Unspecified asthma, uncomplicated; K21.9 Gastro-esophageal reflux disease without esophagitis; B19.20 Unspecified viral hepatitis C without hepatic coma; K70.30 Alcoholic cirrhosis of liver without ascites; F10.20 Alcohol dependence, uncomplicated; F15.10 Other stimulant abuse, uncomplicated; F17.210 Nicotine dependence, cigarettes, uncomplicated; Z23 Encounter for immunization; Z90.49 Acquired absence of other specified parts of digestive tract; Z60.2 Problems related to living alone; Z83.3 Family history of diabetes mellitus; Z82.49 Family history of ischemic heart disease and other diseases of the circulatory system; Z79.899 Other long term (current) drug therapy
CPT/HCPCS: 00400; 36415; 76882; 80048; 80061; 83036; 83735; 84443; 85025; 87040; 87070; 87075; 87077; 87186; 87205; 94640; 96374; 96375; 99285; A6266; J0696; J1170; J1644; J2060; J2250; J2270; J2405; J2704; J3010; J3370; J3490; J7120

== ENCOUNTER 2018-06-13 09:58 | Inpatient (IN) | payer SELFPAY ==
--- NOTE | 2018-06-13 10:11 | ER Document Report ---
ED Medical Screen (RME) - General Chief Complaint: Wound Infection Stated Complaint: FEVER Time Seen by Provider: 06/13/18 10:07 Mode of Arrival: Ambulatory Information source: Patient TRAVEL OUTSIDE OF THE [place] IN LAST 30 DAYS: No - HPI Patient complains to provider of: L hand pain Onset: Other - pt. had surgery for infection L hand approx. I week ago. Missed F/U appt this week and says he has not felt well for the past 1-2 days. - Related Data Allergies/Adverse Reactions: No Known Allergies Allergy (Verified 06/13/18 09:59) Past Medical History - Past Medical History Cardiac Medical History: Denies: Hx Coronary Artery Disease, Hx DVT, Hx Heart Attack, Hx Hypertension, Hx Peripheral Vascular Disease Pulmonary Medical History: Reports: Hx Asthma Denies: Hx COPD, Hx Tuberculosis Neurological Medical History: Denies: Hx Seizures Endocrine Medical History: Denies: Hx Diabetes Mellitus Type 1, Hx Diabetes Mellitus Type 2, Hx Hyperthyroidism, Hx Hypothyroidism Renal/ Medical History: Denies: Hx End Stage Renal Disease, Hx Peritoneal Dialysis GI Medical History: Reports: Hx Cirrhosis - Hepatitis C, Hx Gastroesophageal Reflux Disease, Hx Hepatitis Musculoskeltal Medical History: Denies Hx Arthritis, Denies Hx Gout, Reports Hx Musculoskeletal Deformity, Reports Hx Musculoskeletal Trauma Skin Medical History: Denies Hx Eczema, Denies Hx Psoriasis Psychiatric Medical History: Denies: Hx Depression Infectious Medical History: Reports: Hx Hepatitis. Denies: Hx HIV, Hx MRSA Past Surgical History: Reports: Hx Cholecystectomy, Hx Orthopedic Surgery - Left hand - Immunizations Hx Diphtheria, Pertussis, Tetanus Vaccination: Yes History of Influenza Vaccine for 03/2017 - 08/2017 Season: Yes Influenza Administration Date for 03/2017 - 08/2017 Season: 03/23/17 Physical Exam - Vital signs Vitals: Temp Pulse Resp BP Pulse Ox 98.0 F 98 16 139/77 H 92 06/13/18 10:02 06/13/18 10:02 06/13/18 10:02 06/13/18 10:02 06/13/18 10:02 Course - Vital Signs Vital signs: Temp Pulse Resp BP Pulse Ox 98.0 F 98 16 139/77 H 92 06/13/18 10:02 06/13/18 10:02 06/13/18 10:02 06/13/18 10:02 06/13/18 10:02
[2018-06-13 10:43] LABS: ABSOLUTE EOSINOPHILS # (AUTO) 0.1 10^3/uL (0.0-0.6); ABSOLUTE MONOCYTES (AUTO) 0.6 10^3/uL (0.1-1.4); ABSOLUTE NEUT (AUTO) 6.5 10^3/uL (1.7-8.2); BASOPHILS % (AUTO) 0.5 % (0-2); EOSINOPHILS % (AUTO) 1.2 % (0-6); HEMATOCRIT 38.5 % (37.9-51.0); HEMOGLOBIN 13.2 g/dL (13.5-17.0); LYMPHOCYTES % (AUTO) 21.6 % (13-45); MEAN CORPUSCULAR HEMOGLOBIN 28.7 pg (27.0-33.4); MEAN CORPUSCULAR HGB CONC 34.2 g/dL (32.0-36.0); MEAN CORPUSCULAR VOLUME 84 fl (80-97); MONOCYTES % (AUTO) 6.2 % (3-13); PLATELET COUNT 466 10^3/uL (150-450); RED CELL DISTRIBUTION WIDTH 13.4 % (11.5-14.0); SEGMENTED NEUTROPHILS % (AUTO) 70.5 % (42-78); TOTAL CELLS COUNTED % (AUTO) 100 %; WHITE BLOOD COUNT 9.2 10^3/uL (4.0-10.5)
--- NOTE | 2018-06-13 10:47 | RADIOLOGY REPORT (SQ) ---
EXAM DESCRIPTION: HAND LEFT 3 VIEWS COMPLETED DATE/TIME: 06/13/2018 10:39 am REASON FOR STUDY: s/p surgery L hand COMPARISON: 06/02/2018 EXAM PARAMETERS: NUMBER OF VIEWS: Three views. TECHNIQUE: AP, lateral and oblique radiographic images acquired of the left hand. LIMITATIONS: None. FINDINGS: MINERALIZATION: Normal. BONES: No acute fracture or dislocation. No worrisome bone lesions. Degenerative changes focal left t he 3rd metacarpal phalangeal joint. JOINTS: No erosions. No dennise-articular osteopenia. No chondrocalcinosis. SOFT TISSUES: Marked dorsal soft tissue swelling. OTHER: No other significant finding. IMPRESSION: Dorsal soft tissue swelling. No foreign body. No osteomyelitis. TECHNICAL DOCUMENTATION: JOB ID: [id number] [employer]- All Rights Reserved Reading location - IP/workstation name: [email or web address]
[2018-06-13 11:02] LABS: ALANINE AMINOTRANSFERASE 41 U/L (21-72); ALBUMIN 3.9 g/dL (3.5-5.0); ALKALINE PHOSPHATASE 350 U/L (38-126); ANION GAP 9 (5-19); ASPARTATE AMINO TRANSFERASE 47 U/L (17-59); BILIRUBIN,DIRECT 0.3 mg/dL (0.0-0.4); BILIRUBIN,TOTAL 0.3 mg/dL (0.2-1.3); BLOOD UREA NITROGEN 16 mg/dL (7-20); CALCIUM 9.4 mg/dL (8.4-10.2); CARBON DIOXIDE 29 mmol/L (22-30); CHLORIDE 100 mmol/L (98-107); GLUCOSE 104 mg/dL (75-110); POTASSIUM 4.5 mmol/L (3.6-5.0); SODIUM 138.1 mmol/L (137-145); TOTAL PROTEIN 7.4 g/dL (6.3-8.2)
--- NOTE | 2018-06-13 12:38 | ER Document Report ---
ED General - General Chief Complaint: Wound Infection Stated Complaint: FEVER Time Seen by Provider: 06/13/18 10:07 Mode of Arrival: Ambulatory Notes: Patient is a 48-year-old male with past medical history of hepatitis C and IV drug abuse who presents with chief complaint of left hand pain and swelling up into his left wrist. Patient had surgery for an abscess on 06/05/18 here at [facility]. Patient reports that he took all of his antibiotics as prescribed. Patient reports he has been having fevers over the night up to 102. TRAVEL OUTSIDE OF THE [place] IN LAST 30 DAYS: No - Related Data Allergies/Adverse Reactions: No Known Allergies Allergy (Verified 06/13/18 09:59) Past Medical History - General Information source: Patient - Social History Smoking Status: Current Every Day Smoker Chew tobacco use (# tins/day): No Frequency of alcohol use: None Drug Abuse: Heroin - Patient reports injecting large amounts daily Family History: CAD, DM, Hypertension Patient has suicidal ideation: No Patient has homicidal ideation: No - Past Medical History Cardiac Medical History: Denies: Hx Coronary Artery Disease, Hx DVT, Hx Heart Attack, Hx Hypertension, Hx Peripheral Vascular Disease Pulmonary Medical History: Reports: Hx Asthma Denies: Hx COPD, Hx Tuberculosis Neurological Medical History: Denies: Hx Seizures Endocrine Medical History: Denies: Hx Diabetes Mellitus Type 1, Hx Diabetes Mellitus Type 2, Hx Hyperthyroidism, Hx Hypothyroidism Renal/ Medical History: Denies: Hx End Stage Renal Disease, Hx Peritoneal Dialysis GI Medical History: Reports: Hx Cirrhosis - Hepatitis C, Hx Gastroesophageal Reflux Disease, Hx Hepatitis Musculoskeletal Medical History: Denies Hx Arthritis, Denies Hx Gout, Reports Hx Musculoskeletal Deformity, Reports Hx Musculoskeletal Trauma Skin Medical History: Denies Hx Eczema, Denies Hx Psoriasis Psychiatric Medical History: Denies: Hx Depression Infectious Medical History: Reports: Hx Hepatitis. Denies: Hx HIV, Hx MRSA Past Surgical History: Reports: Hx Cholecystectomy, Hx Orthopedic Surgery - Left hand - Immunizations Hx Diphtheria, Pertussis, Tetanus Vaccination: Yes Review of Systems - Review of Systems Constitutional: Chills, Fever Gastrointestinal: denies: Nausea, Vomiting Skin: See HPI Physical Exam - Vital signs Vitals: Temp Pulse Resp BP Pulse Ox 98.0 F 98 16 139/77 H 92 06/13/18 10:02 06/13/18 10:02 06/13/18 10:02 06/13/18 10:02 06/13/18 10:02 - Notes Notes: PHYSICAL EXAMINATION: GENERAL: Well-appearing, well-nourished and in no acute distress. HEAD: Atraumatic, normocephalic. EYES: Pupils equal round and reactive to light, extraocular movements intact, sclera anicteric, conjunctiva are normal. ENT: Nares patent, oropharynx clear without exudates. Moist mucous membranes. NECK: Normal range of motion, supple without lymphadenopathy LUNGS: Breath sounds clear to auscultation bilaterally and equal. No wheezes rales or rhonchi. HEART: Regular rate and rhythm without murmurs ABDOMEN: Soft, nontender, nondistended abdomen. No guarding, no rebound. No masses appreciated. Musculoskeletal: Normal range of motion, no pitting or edema. No cyanosis. NEUROLOGICAL: Cranial nerves grossly intact. Normal speech, normal gait. Norm al sensory, motor exams PSYCH: Normal mood, normal affect. SKIN: Warm, Dry, surgical wound noted to dorsal surface of left hand there is erythema surrounding this with extension up into the wrist. Mild yellow cap refill is less than 3 seconds, normal motor and to area of concern. Radial pulse strong. Course - Re-evaluation Re-evalutation: CBC is unremarkable, ESR is within normal limits. CRP is elevated at 22.8. Chemistry otherwise unremarkable. Lactic acid is negative. Patient's physical examination is suggestive of cellulitis versus abscess. 06/13/18 12:37 Consulted hospitalist for admission for IV antibiotics. Spoke with who referred me to [facility]. [facility] Tala feels that patient would fall under orthopedics and not hospitalist service. 06/13/18 12:[address] Mobley on-call orthopedic surgeon. He is able to consult on this patient but states admission is most appropriate under the hospitalists service. I did notify the lead hospitalist of this who states he will look into this and call me back. In the meanwhile patient still has no IV access and is currently refusing to let us start another IV. Will order p.o. clindamycin [address] Mobley came to the patient's bedside and evaluated the patient. He would like an MRI of the left upper extremity ordered I will call him with results. Patient declines the IM Toradol states that Toradol makes him angry and aggressive. I will order one tablet of Percocet for his pain. I also placed an order for Ativan 2 mg IV to be given just prior to taking patient down for MRI as patient states that he will get extreme anxiety with the MRI. Patient is asking for a dose of Suboxone. Patient states he is concerned he will go through withdrawals as he is now stating that he injects between $600-$700 worth of heroin every day. MRI shows a fluid collection consistent with an abscess with loculation. I called and updated Dr. Mobley who will admit the patient. patient was updated on plan of care and is agreeable to same. Patient remains stable at this time. Meal tray will be ordered for patient and patient will be n.p.o. after midnight. - Vital Signs Vital signs: Temp Pulse Resp BP Pulse Ox 98.0 F 98 16 139/77 H 92 06/13/18 10:02 06/13/18 10:02 06/13/18 10:02 06/13/18 10:02 06/13/18 10:02 - Laboratory Result Diagrams: 06/13/18 10:22 06/13/18 10:22 Laboratory results interpreted by me: 06/13/18 06/13/18 06/13/18 10:22 10:22 10:22 Hgb 13.2 L Plt Count 466 H Alkaline Phosphatase 350 H C-Reactive Protein 22.8 H Discharge - Discharge Clinical Impression: Abscess Fever Qualifiers: Fever type: unspecified Qualified Code(s): R50.9 - Fever, unspecified Condition: Stable Disposition: ADMITTED INPATIENT Admitting Provider: Dr. Mobley Unit Admitted: Medical Floor
[2018-06-13] MEDS ORDERED: KETOROLAC TROMETHAMINE 60 MG/2 ML SDV IM ONE (12:55)
[2018-06-13] MEDS ORDERED: CLINDAMYCIN HCL 150 MG CAPSULE PO ONE (12:56)
[2018-06-13] MEDS ORDERED: OXYCODONE-ACETAMINOPHEN 5-325 MG TABLET PO ONE (13:36)
[2018-06-13] MEDS ORDERED: LORAZEPAM INJ 2 MG/1 ML VIAL IV ONE (14:36)
[2018-06-13] MEDS ORDERED: ACETAMINOPHEN 325 MG TABLET ONE (16:06)
--- NOTE | 2018-06-13 17:02 | RADIOLOGY REPORT (SQ) ---
EXAM DESCRIPTION: MRI LT UPPER EXTREMITY COMBO COMPLETED DATE/TIME: 06/13/2018 4:42 pm REASON FOR STUDY: left wrist pain post surgery for abscess COMPARISON: MR left hand, 06/04/2018 EXAM PARAMETERS: TECHNIQUE: Multisequence multiplanar MR imaging of the left hand performed both pr ior to and following the uncomplicated IV administration of 20 mL Dotarem gadolinium contrast IV LIMITATIONS: Motion artifact. FINDINGS: BONES: No occult fractures. No marrow replacement. No significant ostephytes. LIGAMENTS AND TENDONS: There is a rim enhancing fluid collection about the posterior portion of the c ommon extensor sheath at the proximal dorsum of the left hand measuring approximately 4.7 x 1.6 x 0.6 cm (series 20, image 29). This appears to be a persistent abscess loculation that was seen proximal to the larger primary abscess component that was identified on prior examination and has been surgic ally drained. SOFT TISSUES: Diffuse soft tissue edema and enhancement of the dorsum of the left hand. No significa nt joint effusions. OTHER: No other significant findings. IMPRESSION: There is a rim enhancing fluid collection about the posterior portion of the common exte nsor sheath at the proximal dorsum of the left hand measuring approximately 4.7 x 1.6 x 0.6 cm. This appears to be a persistent abscess loculation that was seen proximal to the larger primary abscess c omponent that was identified on prior examination and has been surgically drained in the interval. TECHNICAL DOCUMENTATION: JOB ID: [id number] [employer]- All Rights Reserved Reading location - IP/workstation name: [email or web address]
[2018-06-13] MEDS ORDERED: MORPHINE SULFATE 10 MG/ML INJ IV PRN (17:44)
[2018-06-13] MEDS ORDERED: VANCOMYCIN HCL INJ 1000 MG VIAL IV SCH (17:45)
--- NOTE | 2018-06-13 17:48 | PDOC H&P ---
History of Present Illness Patient complains of: Left hand pain History of Present Illness: EMELYN BRAVO JR is a 48 year old male presents emergency room because of persistent fevers and feeling ill. Patient states he has been having drainage from his hand which has been mostly clear but also complains of pain along his wrist. He states the pain in his wrist was not present at previous admission. Denies numbness or tingling. Pain 10/10. Does admit to snorting heroin but this was prior to development of the redness in approximately 2 weeks ago. Notes fever and chills. Past Medical History Cardiac Medical History: Denies: Coronary Artery Disease, DVT, Myocardial Infarction, Hypertension, Peripheral Vascular Disease Pulmonary Medical History: Reports: Asthma Denies: Chronic Obstructive Pulmonary Disease (COPD), Tuberculosis Neurological Medical History: Denies: Seizures Endocrine Medical History: Denies: Diabetes Mellitus Type 1, Diabetes Mellitus Type 2, Hyperthyroidism, Hypothyroidism Renal/ Medical History: Denies: End Stage Renal Disease GI Medical History: Reports: Cirrhosis - Hepatitis C, Gastroesophageal Reflux Disease, Hepatitis Musculoskeltal Medical History: Denies: Arthritis, Gout Skin Medical History: Denies: Eczema, Psoriasis Psychiatric Medical History: Denies: Depression Hematology: Denies: Anemia, Bleeding Tendencies Infectious Medical History: Denies: HIV, Methicillin-Resistant Staph Aureus Past Surgical History Past Surgical History: Reports: Cholecystectomy, Orthopedic Surgery - Left hand Social History Smoking Status: Current Every Day Smoker Frequency of Alcohol Use: None Hx Recreational Drug Use: Yes Drugs: Heroin, Other - Methamphetamine and other IV drugs Hx Prescription Drug Abuse: Yes Family History Family History: CAD, DM, Hypertension Parental Family History Reviewed: No Children Family History Reviewed: No Sibling(s) Family History Reviewed.: No Medication/Allergy Home Medications: Omeprazole 20 mg PO Q12 06/03/18 Ibuprofen [Motrin 800 mg Tablet] 800 mg PO Q8HP PRN #30 tablet 06/05/18 Oxycodone HCl [Oxy-Ir 5 mg Tablet] 5 mg PO Q6HP PRN #5 tablet 06/05/18 Doxycycline Hyclate [Vibramycin 100 mg Tablet] 100 mg PO BID #20 tablet 06/07/18 Allergies/Adverse Reactions: No Known Allergies Allergy (Verified 06/13/18 09:59) Review of Systems Constitutional: PRESENT: chills, fever(s). ABSENT: headache(s), weight gain, weight loss Eyes: ABSENT: visual disturbances Ears: ABSENT: hearing changes Cardiovascular: ABSENT: chest pain, dyspnea on exertion, edema, orthropnea, palpitations Respiratory: ABSENT: cough, hemoptysis Gastrointestinal: ABSENT: abdominal pain, constipation, diarrhea, hematemesis, hematochezia, nausea, vomiting Genitourinary: ABSENT: dysuria, hematuria Musculoskeletal: PRESENT: as per HPI Integumentary: ABSENT: rash, wounds Neurological: ABSENT: abnormal gait, abnormal speech, confusion, dizziness, focal weakness, syncope Psychiatric: ABSENT: anxiety, depression, homidical ideation, suicidal ideation Endocrine: ABSENT: cold intolerance, heat intolerance, menstrual abnormalities, polydipsia, polyuria Hematologic/Lymphatic: ABSENT: easy bleeding, easy bruising, lymphadenopathy Physical Exam Vital Signs: Temp Pulse Resp BP Pulse Ox 98.0 F 98 16 139/77 H 92 06/13/18 10:02 06/13/18 10:02 06/13/18 10:02 06/13/18 10:02 06/13/18 10:02 Intake & Output 06/12/18 06/13/18 06/14/18 06:59 06:59 06:59 Weight 99.8 kg Results Laboratory Results: 06/13/18 10:22 06/13/18 10:22 06/13/18 06/13/18 06/13/18 10:22 10:22 10:22 WBC 9.2 RBC 4.60 Hgb 13.2 L Hct 38.5 MCV 84 MCH 28.7 MCHC 34.2 RDW 13.4 Plt Count 466 H Seg Neutrophils % 70.5 Lymphocytes % 21.6 Monocytes % 6.2 Eosinophils % 1.2 Basophils % 0.5 Absolute Neutrophils 6.5 Absolute Lymphocytes 2.0 Absolute Monocytes 0.6 Absolute Eosinophils 0.1 Absolute Basophils 0.0 Sodium 138.1 Potassium 4.5 Chloride 100 Carbon Dioxide 29 Anion Gap 9 BUN 16 Creatinine 0.80 Est GFR ( Amer) > 60 Est GFR (Non-Af Amer) > 60 Glucose 104 Calcium 9.4 Total Bilirubin 0.3 AST 47 ALT 41 Alkaline Phosphatase 350 H C-Reactive Protein 22.8 H Total Protein 7.4 Albumin 3.9 Impressions: Hand X-Ray 06/13/18 10:07 IMPRESSION: Dorsal soft tissue swelling. No foreign body. No osteomyelitis. Assessment & Plan - Diagnosis (1) Abscess of left hand Is this a current diagnosis for this admission?: Yes Plan: Patient had previous left hand abscess and underwent irrigation and debridement approximately 9 days ago. Patient states he had continued to have discomfort and pain and swelling in the hand. With further questioning he states he has been using his antibiotics however compliance questionable. At this point we will obtain an MRI to further evaluate any remaining fluid collection which may be contributing to patient's pain. Current white blood cell count and sed rate are negative with a mildly elevated CRP which would not be uncommon given his recent surgery. MRI demonstrates evidence of persistent abscess along the dorsum of the hand. I have discussed treatment options w/ the patient and given this finding will proceed w/ operative I&D on 06/14/18. Patient will be started on Vano IV which previous bacteria were susceptible to.
[2018-06-13] MEDS: OXYCODONE-ACETAMINOPHEN 5-325 MG TABLET PO PRN (18:10)
--- NOTE | 2018-06-13 18:27 | PDOC CONSULTATION ---
Consultation Consult Date: 06/13/18 Attending physician:: TANI GARDNER Consult reason:: Medical management History of Present Illness Admission Date/PCP: 06/13/18 17:48 History of Present Illness: EMELYN BRAVO JR is a 48 year old male patient with past medical history of hepatitis, hepatitis C and cirrhosis of the liver presented with chief complaint of left hand pain, swelling and fever. Of note patient had had I&D and debridement of the affected hand 8 days ago at [facility]. His blood works are unremarkable except elevated C-reactive protein which might be due to inflammation. MRI of the affected hand does not show osteomyelitis except residual abscess. The hospitalist service consulted for comanagement. Past Medical History Cardiac Medical History: Denies: Coronary Artery Disease, DVT, Myocardial Infarction, Hypertension, Pe ripheral Vascular Disease Pulmonary Medical History: Reports: Asthma Denies: Chronic Obstructive Pulmonary Disease (COPD), Tuberculosis Neurological Medical History: Denies: Seizures Endocrine Medical History: Denies: Diabetes Mellitus Type 1, Diabetes Mellitus Type 2, Hyperthyroidism, Hypothyroidism Renal/ Medical History: Denies: End Stage Renal Disease GI Medical History: Reports: Cirrhosis - Hepatitis C, Gastroesophageal Reflux Disease, Hepatitis Musculoskeltal Medical History: Denies: Arthritis, Gout Skin Medical History: Denies: Eczema, Psoriasis Psychiatric Medical History: Denies: Depression Hematology: Denies: Anemia, Bleeding Tendencies Infectious Medical History: Denies: HIV, Methicillin-Resistant Staph Aureus Past Surgical History Past Surgical History: Reports: Cholecystectomy, Orthopedic Surgery - Left hand Social History Smoking Status: Current Every Day Smoker Frequency of Alcohol Use: None Hx Recreational Drug Use: Yes Drugs: Heroin, Other - Methamphetamine and other IV drugs Hx Prescription Drug Abuse: Yes - Advance Directive Resuscitation Status: Full Code Family History Family History: CAD, DM, Hypertension Parental Family History Reviewed: Yes Children Family History Reviewed: Yes Sibling(s) Family History Reviewed.: Yes Medication/Allergy Home Medications: Omeprazole 20 mg PO Q12 06/03/18 Ibuprofen [Motrin 800 mg Tablet] 800 mg PO Q8HP PRN #30 tablet 06/05/18 Oxycodone HCl [Oxy-Ir 5 mg Tablet] 5 mg PO Q6HP PRN #5 tablet 06/05/18 Doxycycline Hyclate [Vibramycin 100 mg Tablet] 100 mg PO BID #20 tablet 06/07/18 Allergies/Adverse Reactions: No Known Allergies Allergy (Verified 06/13/18 09:59) Review of Systems Constitutional: PRESENT: fever(s). ABSENT: chills, headache(s), weight gain, weight loss Eyes: ABSENT: visual disturbances Ears: ABSENT: hearing changes Cardiovascular: ABSENT: chest pain, dyspnea on exertion, edema, orthropnea, palpitations Respiratory: ABSENT: cough, hemoptysis Gastrointestinal: ABSENT: abdominal pain, constipation, diarrhea, hematemesis, hematochezia, nausea, vomiting Genitourinary: ABSENT: dysuria, hematuria Musculoskeletal: ABSENT: joint swelling Integumentary: PRESENT: wounds. ABSENT: rash Neurological: ABSENT: abnormal gait, abnormal speech, confusion, dizziness, focal weakness, syncope Psychiatric: ABSENT: anxiety, depression, homidical ideation, suicidal ideation Endocrine: ABSENT: cold intolerance, heat intolerance, polydipsia, polyuria Hematologic/Lymphatic: ABSENT: easy bleeding, easy bruising Physical Exam Vital Signs: Temp Pulse Resp BP Pulse Ox 98.0 F 98 16 139/77 H 92 06/13/18 10:02 06/13/18 10:02 06/13/18 10:02 06/13/18 10:02 06/13/18 10:02 Intake & Output 06/12/18 06/13/18 06/14/18 06:59 06:59 06:59 Weight 99.8 kg General appearance: PRESENT: no acute distress, well-developed, well-nourished Head exam: PRESENT: atraumatic, normocephalic Eye exam: PRESENT: conjunctiva pink, EOMI, PERRLA. ABSENT: scleral icterus Ear exam: PRESENT: normal external ear exam Mouth exam: PRESENT: moist, tongue midline Neck exam: ABSENT: carotid bruit, JVD, lymphadenopathy, thyromegaly Respiratory exam: PRESENT: clear to auscultation henreitta. ABSENT: rales, rhonchi, wheezes Cardiovascular exam: PRESENT: RRR. ABSENT: diastolic murmur, rubs, systolic murmur Pulses: PRESENT: normal dorsalis pedis pul Vascular exam: PRESENT: normal capillary refill GI/Abdominal exam: PRESENT: normal bowel sounds, soft. ABSENT: distended, guarding, mass, organolmegaly, rebound, tenderness Rectal exam: PRESENT: deferred Extremities exam: PRESENT: full ROM, other - Left hand surgical wound and surrounding erythema. ABSENT: calf tenderness, clubbing, pedal edema Neurological exam: PRESENT: alert, awake, oriented to person, oriented to place, oriented to time, oriented to situation, CN II-XII grossly intact. ABSENT: motor sensory deficit Psychiatric exam: PRESENT: appropriate affect, normal mood. ABSENT: homicidal ideation, suicidal ideation Skin exam: PRESENT: dry, intact, warm. ABSENT: cyanosis, rash Results Laboratory Results: 06/13/18 10:22 06/13/18 10:22 06/13/18 06/13/18 06/13/18 10:22 10:22 10:22 WBC 9.2 RBC 4.60 Hgb 13.2 L Hct 38.5 MCV 84 MCH 28.7 MCHC 34.2 RDW 13.4 Plt Count 466 H Seg Neutrophils % 70.5 Lymphocytes % 21.6 Monocytes % 6.2 Eosinophils % 1.2 Basophils % 0.5 Absolute Neutrophils 6.5 Absolute Lymphocytes 2.0 Absolute Monocytes 0.6 Absolute Eosinophils 0.1 Absolute Basophils 0.0 Sodium 138.1 Potassium 4.5 Chloride 100 Carbon Dioxide 29 Anion Gap 9 BUN 16 Creatinine 0.80 Est GFR ( Amer) > 60 Est GFR (Non-Af Amer) > 60 Glucose 104 Lactic Acid Calcium 9.4 Total Bilirubin 0.3 AST 47 ALT 41 Alkaline Phosphatase 350 H C-Reactive Protein 22.8 H Total Protein 7.4 Albumin 3.9 06/13/18 15:17 WBC RBC Hgb Hct MCV MCH MCHC RDW Plt Count Seg Neutrophils % Lymphocytes % Monocytes % Eosinophils % Basophils % Absolute Neutrophils Absolute Lymphocytes Absolute Monocytes Absolute Eosinophils Absolute Basophils Sodium Potassium Chloride Carbon Dioxide Anion Gap BUN Creatinine Est GFR ( Amer) Est GFR (Non-Af Amer) Glucose Lactic Acid 1.3 Calcium Total Bilirubin AST ALT Alkaline Phosphatase C-Reactive Protein Total Protein Albumin Impressions: Hand X-Ray 06/13/18 10:07 IMPRESSION: Dorsal soft tissue swelling. No foreign body. No osteomyelitis. Upper Extremity MRI 06/13/18 13:26 IMPRESSION: There is a rim enhancing fluid collection about the posterior portion of the common extensor sheath at the proximal dorsum of the left hand measuring approximately 4.7 x 1.6 x 0.6 cm. This appears to be a persistent abscess loculation that was seen proximal to the larger primary abscess component that was identified on prior examination and has been surgically drained in the interval. Assessment & Plan - Diagnosis (1) Cellulitis and abscess of left hand Is this a current diagnosis for this admission?: Yes Plan: Status post incision and drainage. We will continue IV vancomycin. (2) Hepatitis C Qualifiers: Viral hepatitis chronicity: unspecified Is this a current diagnosis for this admission?: Yes Plan: Outpatient follow-up with his primary care physician. (3) Cirrhosis of liver Is this a current diagnosis for this admission?: Yes Plan: Most probably hep C induced. Compensated.
[2018-06-13] MEDS: RINGERS SOLUTION,LACTATED 1,000 ML IV PRN (22:29)
[2018-06-13] MEDS: LANSOPRAZOLE 15 MG TAB.RAP.DR PO SCH (22:29)
[2018-06-14] MEDS: OXYCODONE-ACETAMINOPHEN 5-325 MG TABLET PO PRN (05:25)
[2018-06-14 05:47] LABS: ABSOLUTE BASOPHILS # (AUTO) 0.1 10^3/uL (0.0-0.2); ABSOLUTE EOSINOPHILS # (AUTO) 0.2 10^3/uL (0.0-0.6); ABSOLUTE MONOCYTES (AUTO) 0.4 10^3/uL (0.1-1.4); ABSOLUTE NEUT (AUTO) 2.9 10^3/uL (1.7-8.2); BASOPHILS % (AUTO) 1.1 % (0-2); EOSINOPHILS % (AUTO) 3.6 % (0-6); HEMATOCRIT 35.9 % (37.9-51.0); HEMOGLOBIN 12.1 g/dL (13.5-17.0); LYMPHOCYTES % (AUTO) 35.7 % (13-45); MEAN CORPUSCULAR HEMOGLOBIN 28.5 pg (27.0-33.4); MEAN CORPUSCULAR HGB CONC 33.7 g/dL (32.0-36.0); MEAN CORPUSCULAR VOLUME 85 fl (80-97); MONOCYTES % (AUTO) 7.7 % (3-13); PLATELET COUNT 421 10^3/uL (150-450); RED BLOOD COUNT 4.25 10^6/uL (4.35-5.55); RED CELL DISTRIBUTION WIDTH 13.6 % (11.5-14.0); SEGMENTED NEUTROPHILS % (AUTO) 51.9 % (42-78); TOTAL CELLS COUNTED % (AUTO) 100 %; WHITE BLOOD COUNT 5.6 10^3/uL (4.0-10.5)
[2018-06-14 06:00] LABS: ANION GAP 6 (5-19); BLOOD UREA NITROGEN 21 mg/dL (7-20); CALCIUM 8.8 mg/dL (8.4-10.2); CARBON DIOXIDE 29 mmol/L (22-30); CHLORIDE 102 mmol/L (98-107); GLUCOSE 98 mg/dL (75-110); POTASSIUM 4.7 mmol/L (3.6-5.0); SODIUM 137.3 mmol/L (137-145)
[2018-06-14] MEDS ORDERED: BUPIVACAINE HCL 0.5 % INJ/PF 30 ML SDV ONE (07:17)
[2018-06-14] MEDS ORDERED: LIDOCAINE 1% INJ-PF (10 MG/ML) 30 ML SDV ONE (07:17)
[2018-06-14] MEDS ORDERED: BACITRACIN INJ 50,000 UNIT VIAL ONE (07:18)
[2018-06-14] MEDS ORDERED: FENTANYL CITRATE INJ/PF 100 MCG/2 ML AMPUL ONE (07:29)
[2018-06-14] MEDS ORDERED: PROPOFOL INJ 200 MG/20 ML VIAL IV ONE (07:30)
[2018-06-14] MEDS ORDERED: MORPHINE SULFATE 10 MG/ML INJ ONE (07:30)
[2018-06-14] MEDS ORDERED: MIDAZOLAM 2 MG/2 ML INJ ONE (07:30)
[2018-06-14] MEDS ORDERED: MEPERIDINE HCL/PF INJ 25 MG/1 ML DISP.SYRIN IV PRN (08:23)
[2018-06-14] MEDS ORDERED: PROMETHAZINE HCL INJ 25 MG/1 ML VIAL IV PRN ×2 (08:23)
[2018-06-14] MEDS ORDERED: MORPHINE SULFATE 10 MG/ML INJ IV PRN (08:23)
[2018-06-14] MEDS ORDERED: FENTANYL CITRATE INJ/PF 100 MCG/2 ML AMPUL IV PRN ×3 (08:23)
[2018-06-14] MEDS ORDERED: DIPHENHYDRAMINE HCL 50 MG/ML VIAL IV PRN (08:23)
[2018-06-14] MEDS ORDERED: OXYCODONE HCL IR 5 MG TABLET PO PRN (08:43)
--- NOTE | 2018-06-14 08:45 | Operative Report ---
Operative Report DATE OF SURGERY: 06/14/18 PREOPERATIVE DIAGNOSIS: Recurrent left hand abscess POSTOPERATIVE DIAGNOSIS: Same OPERATION: Irrigation and debridement left hand superficial abscess with tenosynovectomy fourth dorsal compartment SURGEON: TANI GARDNER ANESTHESIA: GA TISSUE REMOVED OR ALTERED: Aerobic, anaerobic, AFB and fungal cultures COMPLICATIONS: None ESTIMATED BLOOD LOSS: Minimal PROCEDURE: Indication for above procedure: 48-year-old male with history of hepatitis C and IV drug abuse presenting to the hospital approximately 10 days ago with what was found to be a abscess of the left hand. Underwent irrigation debridement unfortunately patient continued to have residual swelling and pain MRI was done demonstrating recurrent abscess. I then discussed treatment options with the patient including continued observation versus operative intervention. Risks and benefits were explained patient verbalized understanding consented for the surgical procedure. Procedure In Detail: Patient was seen and evaluated in the preoperative holding area. The LEFT upper extremity was initialized and marked. Patient received 2g of Ancef IV for bacterial prophylaxis. Patient was taken back to the operative room where transferred to the operative table and placed under general anesthesia. Once they were adequately anesthetized a nonsterile tourniquet was placed on the upper extremity. A surgical team debriefing was performed ensuring all instrumentation was available, the surgical procedure was discussed with possible concerns reviewed. The upper extremity was prepped with Betadine and draped in a sterile fashion. A timeout was done identifying correct patient, procedure and extremity everyone in attendance agree with this and verbalized no concerns. The extremity was elevated the tourniquet was inflated to 250 mmHg. Previous skin incision was utilized and extended proximally across the wrist flexion crease at the level of the residual fluctuance. Blunt dissection was performed. The extensor tendons were then identified. Small amount of purulence was found at the previous surgical site and just proximally. No tracking proximal to the new incision was noted. There was evidence of tenosynovitis and adhesions on the extensor tendons at the fourth dorsal compartment. Tenosynovectomy was then performed. Of note patient had significant fraying of the extensor tendons beginning distally at previous surgical site and extending proximal beneath the retinaculum at the wrist joint. There is no evidence of tracking into the wrist joint. The wound was then copiously irrigated with normal saline. Skin incision was closed with interrupted 3-0 nylon and a Marian[place] drain placed. Tourniquet was deflated. Patient was placed in a soft dressing. Sponge counts, instrument counts, needle counts were correct. Patient was then awoken from anesthesia. Transferred from the operating room table to the operating room stretcher. There was no intraoperative complications patient tolerated procedure well stable to PACU. Postoperative plan: We will continue patient on IV vancomycin until he sees clinical improvement. Anticipate discharge home on doxycycline and Levaquin Streptococcus mitis and MRSA were susceptible to
[2018-06-14] MEDS: LANSOPRAZOLE 15 MG TAB.RAP.DR PO SCH ×2 (10:16→21:07)
[2018-06-14] MEDS: NICOTINE 14 MG/24 HR PATCH.TD24 TD SCH (10:16)
[2018-06-14] MEDS: FENTANYL 50 MCG/HR PATCH.TD72 TD SCH (12:25)
[2018-06-14] MEDS: MORPHINE SULFATE 10 MG/ML INJ IV PRN ×3 (12:55→21:10)
--- NOTE | 2018-06-14 15:55 | PDOC PROGRESS REPORT ---
Subjective Progress Note for:: 06/14/18 Subjective:: This is a 48 years old male patient with history of IV drug abuse presented with chief complaint of left hand pain. Patient is found to have cellulitis and abscess of the affected limb. MRI is negative for osteomyelitis or osteoarthritis but shows residual abscess. His blood and wound culture are pending. During his previous admission at this ago his wound culture grew MRSA. When I see him this morning patient patient complaining of pain of the involved hand and he was given 2 mg of IV morphine an hour before I saw him. Patient is manipulative and threatening the nurses that he is going to sign AMA. I increased the dose of his morphine to 4 mg IV every 4 hours and also added for him fentanyl patch 50 mics every 72 hours. Reason For Visit: LEFT HAND ABSCESS Physical Exam Vital Signs: Temp Pulse Resp BP Pulse Ox 98.1 F 90 16 129/78 H 100 06/14/18 11:55 06/14/18 11:55 06/14/18 11:55 06/14/18 11:55 06/14/18 11:55 Intake & Output 06/13/18 06/14/18 06/15/18 06:59 06:59 06:59 Intake Total 444 1300 Output Total 1000 Balance 444 300 Weight 97.6 kg General appearance: PRESENT: mild distress Eye exam: PRESENT: conjunctiva pink Mouth exam: PRESENT: moist Neck exam: ABSENT: carotid bruit, JVD, lymphadenopathy, thyromegaly Respiratory exam: PRESENT: clear to auscultation henrietta. ABSENT: rales, rhonchi, wheezes Cardiovascular exam: PRESENT: RRR. ABSENT: diastolic murmur, rubs, systolic murmur GI/Abdominal exam: PRESENT: normal bowel sounds, soft. ABSENT: distended, guarding, mass, organolmegaly, rebound, tenderness Extremities exam: PRESENT: other - Left hand dressed Neurological exam: PRESENT: alert, awake, oriented to time, oriented to situation Results Laboratory Results: 06/14/18 04:05 06/14/18 04:05 06/14/18 06/14/18 04:05 04:05 WBC 5.6 RBC 4.25 L Hgb 12.1 L Hct 35.9 L MCV 85 MCH 28.5 MCHC 33.7 RDW 13.6 Plt Count 421 Seg Neutrophils % 51.9 Lymphocytes % 35.7 Monocytes % 7.7 Eosinophils % 3.6 Basophils % 1.1 Absolute Neutrophils 2.9 Absolute Lymphocytes 2.0 Absolute Monocytes 0.4 Absolute Eosinophils 0.2 Absolute Basophils 0.1 Sodium 137.3 Potassium 4.7 Chloride 102 Carbon Dioxide 29 Anion Gap 6 BUN 21 H Creatinine 0.90 Est GFR ( Amer) > 60 Est GFR (Non-Af Amer) > 60 Glucose 98 Calcium 8.8 Impressions: Hand X-Ray 06/13/18 10:07 IMPRESSION: Dorsal soft tissue swelling. No foreign body. No osteomyelitis. Upper Extremity MRI 06/13/18 13:26 IMPRESSION: There is a rim enhancing fluid collection about the posterior portion of the common extensor sheath at the proximal dorsum of the left hand measuring approximately 4.7 x 1.6 x 0.6 cm. This appears to be a persistent abscess loculation that was seen proximal to the larger primary abscess component that was identified on prior examination and has been surgically drained in the interval. Assessment & Plan - Diagnosis (1) Cellulitis and abscess of left hand Is this a current diagnosis for this admission?: Yes Plan: Status post incision and drainage and total debridement. We will continue vancomycin and adjust his antibiotics based on his clinical response and culture results. (2) Hepatitis C Qualifiers: Viral hepatitis chronicity: unspecified Is this a current diagnosis for this admission?: Yes Plan: Outpatient follow-up with his primary care physician. (3) Cirrhosis of liver Is this a current diagnosis for this admission?: Yes Plan: Most probably hep C induced. Compensated.
[2018-06-14] MEDS: RINGERS SOLUTION,LACTATED 1,000 ML IV PRN (17:14)
[2018-06-15] MEDS: MORPHINE SULFATE 10 MG/ML INJ IV PRN ×6 (01:15→21:50)
[2018-06-15] MEDS: RINGERS SOLUTION,LACTATED 1,000 ML IV PRN (05:27)
[2018-06-15 06:44] LABS: ABSOLUTE BASOPHILS # (AUTO) 0.1 10^3/uL (0.0-0.2); ABSOLUTE EOSINOPHILS # (AUTO) 0.2 10^3/uL (0.0-0.6); ABSOLUTE LYMPHOCYTES (AUTO) 2.4 10^3/uL (0.5-4.7); ABSOLUTE MONOCYTES (AUTO) 0.7 10^3/uL (0.1-1.4); ABSOLUTE NEUT (AUTO) 4.1 10^3/uL (1.7-8.2); BASOPHILS % (AUTO) 1.1 % (0-2); EOSINOPHILS % (AUTO) 2.4 % (0-6); HEMATOCRIT 37.8 % (37.9-51.0); HEMOGLOBIN 12.5 g/dL (13.5-17.0); LYMPHOCYTES % (AUTO) 32.3 % (13-45); MEAN CORPUSCULAR HGB CONC 33.2 g/dL (32.0-36.0); MEAN CORPUSCULAR VOLUME 84 fl (80-97); MONOCYTES % (AUTO) 8.9 % (3-13); PLATELET COUNT 422 10^3/uL (150-450); RED BLOOD COUNT 4.48 10^6/uL (4.35-5.55); RED CELL DISTRIBUTION WIDTH 13.5 % (11.5-14.0); SEGMENTED NEUTROPHILS % (AUTO) 55.3 % (42-78); TOTAL CELLS COUNTED % (AUTO) 100 %; WHITE BLOOD COUNT 7.5 10^3/uL (4.0-10.5)
--- NOTE | 2018-06-15 09:07 | PDOC PROGRESS REPORT ---
Subjective Progress Note for:: 06/15/18 Subjective:: Patient lying in bed comfortably. Continues to have discomfort although it is improved after fentanyl. Denies fever chills or sweats. Reason For Visit: LEFT HAND ABSCESS Physical Exam Vital Signs: Temp Pulse Resp BP Pulse Ox 97.9 F 86 18 123/66 96 06/14/18 23:14 06/14/18 23:14 06/14/18 23:14 06/14/18 23:14 06/14/18 23:14 Intake & Output 06/14/18 06/15/18 06/16/18 06:59 06:59 06:59 Intake Total 444 7081 Output Total 1000 Balance 444 6081 Weight 97.6 kg 94.5 kg Musculoskeletal exam: PRESENT: other - Left hand: Dressing clean/dry/intact no erythema or drainage. Intact flexion/extension the IP/MP joints. No streaking erythema. No evidence of lymphadenopathy. Results Laboratory Results: 06/15/18 06:35 06/14/18 04:05 06/15/18 06:35 WBC 7.5 RBC 4.48 Hgb 12.5 L Hct 37.8 L MCV 84 MCH 28.0 MCHC 33.2 RDW 13.5 Plt Count 422 Seg Neutrophils % 55.3 Lymphocytes % 32.3 Monocytes % 8.9 Eosinophils % 2.4 Basophils % 1.1 Absolute Neutrophils 4.1 Absolute Lymphocytes 2.4 Absolute Monocytes 0.7 Absolute Eosinophils 0.2 Absolute Basophils 0.1 Impressions: Hand X-Ray 06/13/18 10:07 IMPRESSION: Dorsal soft tissue swelling. No foreign body. No osteomyelitis. Upper Extremity MRI 06/13/18 13:26 IMPRESSION: There is a rim enhancing fluid collection about the posterior portion of the common extensor sheath at the proximal dorsum of the left hand measuring approximately 4.7 x 1.6 x 0.6 cm. This appears to be a persistent abscess loculation that was seen proximal to the larger primary abscess component that was identified on prior examination and has been surgically drained in the interval. Assessment & Plan - Diagnosis (1) Abscess of left hand Is this a current diagnosis for this admission?: Yes Plan: Postop day 1 status post irrigation debridement left hand Continue IV vancomycin for additional 24 hours. DC home on p.o. Levaquin/doxycycline. Follow-up as outpatient in 7 days. Anticipate discharge 06/15/18.
[2018-06-15] MEDS: LANSOPRAZOLE 15 MG TAB.RAP.DR PO SCH ×2 (09:34→23:20)
[2018-06-15] MEDS: NICOTINE 14 MG/24 HR PATCH.TD24 TD SCH (09:34)
--- NOTE | 2018-06-15 11:36 | PDOC PROGRESS REPORT ---
Subjective Progress Note for:: 06/15/18 Subjective:: Patient is seen lying in bed. He reported his left hand pain is getting better after he started on fentanyl patch. Reason For Visit: LEFT HAND ABSCESS Physical Exam Vital Signs: Temp Pulse Resp BP Pulse Ox 98.4 F 86 20 115/65 99 06/15/18 09:16 06/15/18 09:16 06/15/18 09:16 06/15/18 09:16 06/15/18 09:16 Intake & Output 06/14/18 06/15/18 06/16/18 06:59 06:59 06:59 Intake Total 444 7081 Output Total 1000 Balance 444 6081 Weight 97.6 kg 94.5 kg General appearance: PRESENT: no acute distress, well-developed, well-nourished Head exam: PRESENT: atraumatic, normocephalic Eye exam: PRESENT: conjunctiva pink, EOMI, PERRLA. ABSENT: scleral icterus Ear exam: PRESENT: normal external ear exam Mouth exam: PRESENT: moist, tongue midline Neck exam: ABSENT: carotid bruit, JVD, lymphadenopathy, thyromegaly Respiratory exam: PRESENT: clear to auscultation henrietta. ABSENT: rales, rhonchi, wheezes Cardiovascular exam: PRESENT: RRR. ABSENT: diastolic murmur, rubs, systolic murmur Pulses: PRESENT: normal dorsalis pedis pul Vascular exam: PRESENT: normal capillary refill GI/Abdominal exam: PRESENT: normal bowel sounds, soft. ABSENT: distended, guarding, mass, organolmegaly, rebound, tenderness Rectal exam: PRESENT: deferred Extremities exam: PRESENT: full ROM, other - Left hand wrist no oozing or soaki ng. ABSENT: calf tenderness, clubbing, pedal edema Neurological exam: PRESENT: alert, awake, oriented to person, oriented to place, oriented to time, oriented to situation, CN II-XII grossly intact. ABSENT: motor sensory deficit Psychiatric exam: PRESENT: appropriate affect, normal mood. ABSENT: homicidal ideation, suicidal ideation Skin exam: PRESENT: dry, intact, warm. ABSENT: cyanosis, rash Results Laboratory Results: 06/15/18 06:35 06/14/18 04:05 06/15/18 06:35 WBC 7.5 RBC 4.48 Hgb 12.5 L Hct 37.8 L MCV 84 MCH 28.0 MCHC 33.2 RDW 13.5 Plt Count 422 Seg Neutrophils % 55.3 Lymphocytes % 32.3 Monocytes % 8.9 Eosinophils % 2.4 Basophils % 1.1 Absolute Neutrophils 4.1 Absolute Lymphocytes 2.4 Absolute Monocytes 0.7 Absolute Eosinophils 0.2 Absolute Basophils 0.1 Impressions: Hand X-Ray 06/13/18 10:07 IMPRESSION: Dorsal soft tissue swelling. No foreign body. No osteomyelitis. Upper Extremity MRI 06/13/18 13:26 IMPRESSION: There is a rim enhancing fluid collection about the posterior portion of the common extensor sheath at the proximal dorsum of the left hand measuring approximately 4.7 x 1.6 x 0.6 cm. This appears to be a persistent abscess loculation that was seen proximal to the larger primary abscess component that was identified on prior examination and has been surgically drained in the interval. Assessment & Plan - Diagnosis (1) Cellulitis and abscess of left hand Is this a current diagnosis for this admission?: Yes Plan: Status post incision and drainage and total debridement. His wound and blood cultures negative. (2) Hepatitis C Qualifiers: Viral hepatitis chronicity: unspecified Is this a current diagnosis for this admission?: Yes Plan: Outpatient follow-up with his primary care physician. (3) Cirrhosis of liver Is this a current diagnosis for this admission?: Yes Plan: Most probably hep C induced. Compensated.
[2018-06-16] MEDS: MORPHINE SULFATE 10 MG/ML INJ IV PRN ×6 (01:52→22:34)
[2018-06-16 06:32] LABS: ABSOLUTE EOSINOPHILS # (AUTO) 0.1 10^3/uL (0.0-0.6); ABSOLUTE LYMPHOCYTES (AUTO) 2.4 10^3/uL (0.5-4.7); ABSOLUTE MONOCYTES (AUTO) 0.5 10^3/uL (0.1-1.4); ABSOLUTE NEUT (AUTO) 3.6 10^3/uL (1.7-8.2); BASOPHILS % (AUTO) 0.6 % (0-2); HEMATOCRIT 39.9 % (37.9-51.0); HEMOGLOBIN 13.6 g/dL (13.5-17.0); LYMPHOCYTES % (AUTO) 35.5 % (13-45); MEAN CORPUSCULAR HEMOGLOBIN 28.4 pg (27.0-33.4); MEAN CORPUSCULAR HGB CONC 34.2 g/dL (32.0-36.0); MEAN CORPUSCULAR VOLUME 83 fl (80-97); PLATELET COUNT 367 10^3/uL (150-450); RED BLOOD COUNT 4.81 10^6/uL (4.35-5.55); RED CELL DISTRIBUTION WIDTH 13.5 % (11.5-14.0); SEGMENTED NEUTROPHILS % (AUTO) 53.9 % (42-78); TOTAL CELLS COUNTED % (AUTO) 100 %; WHITE BLOOD COUNT 6.7 10^3/uL (4.0-10.5)
--- NOTE | 2018-06-16 06:41 | PDOC PROGRESS REPORT ---
Subjective Progress Note for:: 06/16/18 Reason For Visit: LEFT HAND ABSCESS 48-year-old white male status post I&D of a left dorsal hand abscess. Patient with complaints of left hand pain this morning. Physical Exam Vital Signs: Temp Pulse Resp BP Pulse Ox 37.2 C 81 16 124/64 98 06/15/18 19:47 06/15/18 19:47 06/15/18 19:47 06/15/18 19:47 06/15/18 19:47 Intake & Output 06/14/18 06/15/18 06/16/18 06:59 06:59 06:59 Intake Total 444 7081 1436 Output Total 1000 Balance 444 6081 1436 Weight 97.6 kg 94.5 kg 96.8 kg General appearance: PRESENT: no acute distress, mild distress, well-developed, well-nourished Head exam: PRESENT: normocephalic Respiratory exam: PRESENT: unlabored Cardiovascular exam: PRESENT: RRR Vascular exam: PRESENT: normal capillary refill GI/Abdominal exam: PRESENT: soft Rectal exam: PRESENT: deferred Extremities exam: PRESENT: other - Left hand dressing clean dry and intact. There is some swelling in the digits with a decreased active range of motion. There is brisk capillary refill. Sensory examination is intact to light touch. Neurological exam: PRESENT: alert, awake, oriented to person, oriented to place, oriented to time, oriented to situation. ABSENT: motor sensory deficit Psychiatric exam: PRESENT: appropriate affect, normal mood. ABSENT: homicidal ideation, suicidal ideation Skin exam: PRESENT: dry, intact, warm. ABSENT: cyanosis, rash Results Laboratory Results: 06/16/18 06:20 06/14/18 04:05 06/15/18 06/16/18 06:35 06:20 WBC 7.5 6.7 RBC 4.48 4.81 Hgb 12.5 L 13.6 Hct 37.8 L 39.9 MCV 84 83 MCH 28.0 28.4 MCHC 33.2 34.2 RDW 13.5 13.5 Plt Count 422 367 Seg Neutrophils % 55.3 53.9 Lymphocytes % 32.3 35.5 Monocytes % 8.9 8.0 Eosinophils % 2.4 2.0 Basophils % 1.1 0.6 Absolute Neutrophils 4.1 3.6 Absolute Lymphocytes 2.4 2.4 Absolute Monocytes 0.7 0.5 Absolute Eosinophils 0.2 0.1 Absolute Basophils 0.1 0.0 Impressions: Hand X-Ray 06/13/18 10:07 IMPRESSION: Dorsal soft tissue swelling. No foreign body. No osteomyelitis. Upper Extremity MRI 06/13/18 13:26 IMPRESSION: There is a rim enhancing fluid collection about the posterior portion of the common extensor sheath at the proximal dorsum of the left hand measuring approximately 4.7 x 1.6 x 0.6 cm. This appears to be a persistent abscess loculation that was seen proximal to the larger primary abscess component that was identified on prior examination and has been surgically drained in the interval. Status: Imported from PACS Assessment & Plan - Diagnosis (1) Cellulitis and abscess of left hand Is this a current diagnosis for this admission?: Yes Plan: At this point the patient wishes to stay and continue on IV antibiotics until the situation has improved and I concur. - Time Time Spent with patient: 15-24 minutes Anticipated discharge: Home with Homehealth Within: Other
[2018-06-16] MEDS ORDERED: ONDANSETRON HCL INJ/PF 4 MG/2 ML SDV IV ONE (09:30)
[2018-06-16] MEDS: NICOTINE 14 MG/24 HR PATCH.TD24 TD SCH (10:10)
[2018-06-16] MEDS: LANSOPRAZOLE 15 MG TAB.RAP.DR PO SCH ×2 (10:10→22:32)
[2018-06-16] MEDS: RINGERS SOLUTION,LACTATED 1,000 ML IV PRN (10:13)
--- NOTE | 2018-06-16 12:25 | PDOC PROGRESS REPORT ---
Subjective Progress Note for:: 06/16/18 Subjective:: Orthopedic surgeon his primary attending on this patient. This is a 48 years old male patient with history of IV drug abuse presented with chief complaint of left hand pain. Patient is found to have cellulitis and abscess of the affected limb. MRI is negative for osteomyelitis or osteoarthritis but shows residual abscess. His blood and wound culture are negative. During his previous admission about 11 days ago his wound culture grew MRSA. Patient has drug-seeking behavior. Reason For Visit: LEFT HAND ABSCESS Physical Exam Vital Signs: Temp Pulse Resp BP Pulse Ox 98.9 F 81 16 124/64 98 06/15/18 19:47 06/15/18 19:47 06/15/18 19:47 06/15/18 19:47 06/15/18 19:47 Intake & Output 06/15/18 06/16/18 06/17/18 06:59 06:59 06:59 Intake Total 7081 1436 1000 Output Total 1000 Balance 6081 1436 1000 Weight 94.5 kg 96.8 kg General appearance: PRESENT: no acute distress, well-developed, well-nourished Head exam: PRESENT: atraumatic, normocephalic Eye exam: PRESENT: conjunctiva pink, EOMI, PERRLA. ABSENT: scleral icterus Ear exam: PRESENT: normal external ear exam Mouth exam: PRESENT: moist, tongue midline Neck exam: ABSENT: carotid bruit, JVD, lymphadenopathy, thyromegaly Respiratory exam: PRESENT: clear to auscultation henrietta. ABSENT: rales, rhonchi, wheezes Cardiovascular exam: PRESENT: RRR. ABSENT: diastolic murmur, rubs, systolic murmur Pulses: PRESENT: normal dorsalis pedis pul Vascular exam: PRESENT: normal capillary refill GI/Abdominal exam: PRESENT: normal bowel sounds, soft. ABSENT: distended, guarding, mass, organolmegaly, rebound, tenderness Rectal exam: PRESENT: deferred Extremities exam: PRESENT: full ROM, other - Left hand is dressed.. ABSENT: calf tenderness, clubbing, pedal edema Neurological exam: PRESENT: alert, awake, oriented to person, oriented to place, oriented to time, oriented to situation, CN II-XII grossly intact. ABSENT: motor sensory deficit Psychiatric exam: PRESENT: appropriate affect, normal mood. ABSENT: homicidal ideation, suicidal ideation Skin exam: PRESENT: dry, intact, warm. ABSENT: cyanosis, rash Results Laboratory Results: 06/16/18 06:20 06/14/18 04:05 06/16/18 06:20 WBC 6.7 RBC 4.81 Hgb 13.6 Hct 39.9 MCV 83 MCH 28.4 MCHC 34.2 RDW 13.5 Plt Count 367 Seg Neutrophils % 53.9 Lymphocytes % 35.5 Monocytes % 8.0 Eosinophils % 2.0 Basophils % 0.6 Absolute Neutrophils 3.6 Absolute Lymphocytes 2.4 Absolute Monocytes 0.5 Absolute Eosinophils 0.1 Absolute Basophils 0.0 Impressions: Hand X-Ray 06/13/18 10:07 IMPRESSION: Dorsal soft tissue swelling. No foreign body. No osteomyelitis. Upper Extremity MRI 06/13/18 13:26 IMPRESSION: There is a rim enhancing fluid collection about the posterior portion of the common extensor sheath at the proximal dorsum of the left hand measuring approximately 4.7 x 1.6 x 0.6 cm. This appears to be a persistent abscess loculation that was seen proximal to the larger primary abscess component that was identified on prior examination and has been surgically drained in the interval. Assessment & Plan - Diagnosis (1) Cellulitis and abscess of left hand Is this a current diagnosis for this admission?: Yes Plan: Status post incision and drainage and total debridement. His wound and blood cultures negative. (2) Hepatitis C Qualifiers: Viral hepatitis chronicity: unspecified Is this a current diagnosis for this admission?: Yes Plan: Outpatient follow-up with his primary care physician. (3) Cirrhosis of liver Is this a current diagnosis for this admission?: Yes Plan: Most probably hep C induced. Compensated.
[2018-06-16] MEDS: ONDANSETRON HCL INJ/PF 4 MG/2 ML SDV IV PRN ×3 (14:16→22:35)
[2018-06-17] MEDS: ONDANSETRON HCL INJ/PF 4 MG/2 ML SDV IV PRN ×3 (02:43→10:44)
[2018-06-17] MEDS: MORPHINE SULFATE 10 MG/ML INJ IV PRN ×3 (02:43→10:44)
[2018-06-17] MEDS: LANSOPRAZOLE 15 MG TAB.RAP.DR PO SCH (09:13)
[2018-06-17] MEDS: NICOTINE 14 MG/24 HR PATCH.TD24 TD SCH (09:13)
[2018-06-17 09:14] VITALS: BP 113/60
[2018-06-17] MEDS: FENTANYL 50 MCG/HR PATCH.TD72 TD SCH (09:14)
[2018-06-17] MEDS ORDERED: METOCLOPRAMIDE HCL INJ/PF 10 MG/2 ML SDV IV ONE (09:45)
[2018-06-17] MEDS ORDERED: VANCOMYCIN HCL 1,000 MG in DEXTROSE 5%-WATER 250 ML IV SCH (10:00)
== END 2018-06-17 10:55 | disposition left against medical advice (07) | DRG 982 ==
LOC: ER 09:58 → EH 17:48 → 4N 18:54
PROVIDERS: ADMIT Orthopaedic Surgery; ATTEND Orthopaedic Surgery
PROC: 0H9GXZZ Drainage of Left Hand Skin, External Approach (ICD-10-PCS; 2018-06-14)
PROC: 0LT80ZZ Resection of Left Hand Tendon, Open Approach (ICD-10-PCS; principal; 2018-06-14 08:00)
DX: L02.512 Cutaneous abscess of left hand (principal); L03.114 Cellulitis of left upper limb; B19.20 Unspecified viral hepatitis C without hepatic coma; K74.60 Unspecified cirrhosis of liver; F11.10 Opioid abuse, uncomplicated; F17.210 Nicotine dependence, cigarettes, uncomplicated; Z76.5 Malingerer [conscious simulation]
CPT/HCPCS: 00400; 36415; 80048; 80053; 83605; 85025; 85652; 86140; 87015; 87040; 87070; 87075; 87101; 87116; 87205; 87206; 96372; 99285; A9576; J2060; J2250; J2270; J2405; J2704; J2765; J3010; J3370; J3490; J7060; J7120

== ENCOUNTER 2018-10-06 07:13 | Emergency (ER) | payer SELFPAY ==
--- NOTE | 2018-10-06 08:15 | ER Document Report ---
ED Medical Screen (RME) - General Stated Complaint: CHEST PAIN Time Seen by Provider: 10/06/18 07:28 TRAVEL OUTSIDE OF THE [place] IN LAST 30 DAYS: No - HPI Notes: 10/06/18 08:11 Patient is a 48-year-old gentleman who presents to the emergency department for evaluation. Initially his complaint was chest pain, abdominal pain, vomiting. When I asked more specifically why he is here, he states "withdrawals." He has a longtime history of heroin abuse. He would not offer me any further information. He stated he wanted to leave AGAINST MEDICAL ADVICE. I stated to him that I did not know the etiology of his chest pain or abdominal pain, certainly withdrawal could be a component, but there are other possibilities. I could not rule out an imminently life-threatening condition. He stated he understood, but had no interest in staying for further evaluation. - Related Data Allergies/Adverse Reactions: No Known Allergies Allergy (Verified 06/13/18 09:59) Past Medical History - Past Medical History Cardiac Medical History: Denies: Hx Coronary Artery Disease, Hx DVT, Hx Heart Attack, Hx Hypertension, Hx Peripheral Vascular Disease Pulmonary Medical History: Reports: Hx Asthma Denies: Hx COPD, Hx Tuberculosis Neurological Medical History: Denies: Hx Seizures Endocrine Medical History: Denies: Hx Diabetes Mellitus Type 1, Hx Diabetes Mellitus Type 2, Hx Hyperthyroidism, Hx Hypothyroidism Renal/ Medical History: Denies: Hx End Stage Renal Disease, Hx Peritoneal Dialysis GI Medical History: Reports: Hx Cirrhosis - Hepatitis C, Hx Gastroesophageal Reflux Disease, Hx Hepatitis Musculoskeltal Medical History: Denies Hx Arthritis, Denies Hx Gout, Reports Hx Musculoskeletal Deformity, Reports Hx Musculoskeletal Trauma Skin Medical History: Denies Hx Eczema, Denies Hx Psoriasis Psychiatric Medical History: Denies: Hx Depression Infectious Medical History: Reports: Hx Hepatitis. Denies: Hx HIV, Hx MRSA Past Surgical History: Reports: Hx Cholecystectomy, Hx Orthopedic Surgery - Left hand - Immunizations Hx Diphtheria, Pertussis, Tetanus Vaccination: Yes History of Influenza Vaccine for 03/2017 - 08/2017 Season: Yes Influenza Administration Date for 03/2017 - 08/2017 Season: 03/23/17 Review of Systems - Review of Systems Constitutional: Chills EENT: Tearing Cardiovascular: Chest pain Respiratory: Short of breath Gastrointestinal: Nausea, Vomiting Musculoskeletal: No symptoms reported Skin: See HPI Neurological/Psychological: No symptoms reported Physical Exam - Vital signs Notes: Blood pressure 142/66, pulse 68, O2 sats 97% on room air, respiratory rate 18 - Notes Notes: 48-year-old gentleman, putting his fingers in his throat to induce vomiting, mild distress. Pupils are equal, round, reactive to light. Heart is regular rate and rhythm, lungs are clear to oscillation bilaterally. Skin is cool and diaphoretic. Patient is awake, alert, oriented x3. Gait within normal limits. Course - Re-evaluation Re-evalutation: 10/06/18 08:14 Patient presented to the emergency department for evaluation. He complained of multiple somatic issues, but ultimately I believe this is likely secondary to heroin withdrawal. Unfortunately, the patient would not stay for any sort of evaluation. Nursing did obtain blood, and eventually an IV. That is when I went in to evaluate the patient and he refused to stay. I did explain to him that multiple conditions could be causing his symptoms, and the consequences of not evaluating for these conditions could be serious, including loss of limb, loss of lifestyle, . He voiced understanding. He did sign out AMA, but would not wait for any further paperwork. He is told that if he changes his mind at any time he can return to the ED for further evaluation. Doctor's Discharge - Discharge Clinical Impression: Left against medical advice
[2018-10-06 08:35] VITALS: BP 154/97
--- NOTE | 2018-10-06 10:13 | EKG REPORT ---
SEVERITY:- NORMAL ECG - SINUS RHYTHM : Confirmed by: Shanae Nuñez MD 06-Oct-2018 10:13:02
== END 2018-10-06 08:12 | disposition home or self-care (01) ==
LOC: ER 07:13
DX: R07.9 Chest pain, unspecified (principal); R10.9 Unspecified abdominal pain; J45.909 Unspecified asthma, uncomplicated; Z53.20 Procedure and treatment not carried out because of patient's decision for unspecified reasons
CPT/HCPCS: 93005; 93010; 99283

== ENCOUNTER 2019-01-06 12:50 | Emergency (ER) | payer SELFPAY ==
[2019-01-06 13:23] VITALS: BP 144/85
[2019-01-06] MEDS ORDERED: CEFTRIAXONE INJ 1000 MG VIAL IM ONE (13:32)
[2019-01-06] MEDS ORDERED: LIDOCAINE 1% INJ-PF (10 MG/ML) 30 ML SDV INJ ONE (13:32)
--- NOTE | 2019-01-06 13:50 | ER Document Report ---
ED Skin Rash/Insect Bite/Abscs - General Chief Complaint: Abscess Stated Complaint: LEFT ARM PAIN Time Seen by Provider: 01/06/19 13:12 Primary Care Provider: ESDRAS BUNCH MD [ACTIVE STAFF] - Follow up tomorrow Mode of Arrival: Ambulatory Information source: Patient TRAVEL OUTSIDE OF THE [place] IN LAST 30 DAYS: No - HPI Notes: 48-year-old male presents the ED with left forearm redness and erythema, unsure if he was bitten by an insect, states he does not inject heroin or take methamphetamine anymore he does take methadone from the methadone clinic. Denies any fevers or chills, states pain is 5 out of 10, achy throbbing, has not tried any [id number]-[id number] medications, worse with time. has not tried any icing or heat to area. Denies chest pain,palpitations, shortness of breath, dyspnea, nausea, vomiting, diarrhea, abdominal pain, headaches, neck pain, weakness, bowel or bladder dysfunction, saddle anesthesia, numbness or tingling in bilateral upper or lower extremities equally, muscle paralysis, weakness in bilateral upper or lower extremities equally or rash. - Related Data Allergies/Adverse Reactions: No Known Allergies Allergy (Verified 01/06/19 12:55) Past Medical History - General Information source: Patient - Social History Smoking Status: Current Every Day Smoker Frequency of alcohol use: None Drug Abuse: Other Family History: CAD, DM, Hypertension Patient has suicidal ideation: No Patient has homicidal ideation: No - Past Medical History Cardiac Medical History: Denies: Hx Coronary Artery Disease, Hx DVT, Hx Heart Attack, Hx Hypertension, Hx Peripheral Vascular Disease Pulmonary Medical History: Reports: Hx Asthma Denies: Hx COPD, Hx Tuberculosis Neurological Medical History: Denies: Hx Seizures Endocrine Medical History: Denies: Hx Diabetes Mellitus Type 1, Hx Diabetes Mellitus Type 2, Hx Hyperthyroidism, Hx Hypothyroidism Renal/ Medical History: Denies: Hx End Stage Renal Disease, Hx Peritoneal Dialysis GI Medical History: Reports: Hx Cirrhosis - Hepatitis C, Hx Gastroesophageal Reflux Disease, Hx Hepatitis Musculoskeletal Medical History: Denies Hx Arthritis, Denies Hx Gout, Reports Hx Musculoskeletal Deformity, Reports Hx Musculoskeletal Trauma Skin Medical History: Denies Hx Eczema, Denies Hx Psoriasis Psychiatric Medical History: Denies: Hx Depression Infectious Medical History: Reports: Hx Hepatitis. Denies: Hx HIV, Hx MRSA Past Surgical History: Reports: Hx Cholecystectomy, Hx Orthopedic Surgery - Left hand - Immunizations Hx Diphtheria, Pertussis, Tetanus Vaccination: Yes Review of Systems - Review of Systems Constitutional: No symptoms reported EENT: No symptoms reported Cardiovascular: No symptoms reported Respiratory: No symptoms reported Gastrointestinal: No symptoms reported Genitourinary: No symptoms reported Male Genitourinary: No symptoms reported Musculoskeletal: No symptoms reported Skin: See HPI Hematologic/Lymphatic: No symptoms reported Neurological/Psychological: No symptoms reported Physical Exam - Vital signs Vitals: Temp Pulse Resp BP Pulse Ox 97.9 F 90 16 144/85 H 100 01/06/19 13:18 01/06/19 13:18 01/06/19 13:18 01/06/19 13:18 01/06/19 13:18 - Notes Notes: PHYSICAL EXAMINATION: GENERAL: Well-appearing, well-nourished and in no acute distress. HEAD: Atraumatic, normocephalic. EYES: Pupils equal round and reactive to light, extraocular movements intact, sclera anicteric, conjunctiva are normal. ENT: Nares patent, oropharynx clear without exudates. Moist mucous membranes. NECK: Normal range of motion, supple without lymphadenopathy LUNGS: Breath sounds clear to auscultation bilaterally and equal. No wheezes rales or rhonchi. HEART: Regular rate and rhythm without murmurs ABDOMEN: Soft, nontender, nondistended abdomen. No guarding, no rebound. No masses appreciated. Musculoskeletal: Normal range of motion, no pitting or edema. No cyanosis. NEUROLOGICAL: Cranial nerves grossly intact. Normal speech, normal gait. Normal sensory, motor exams . PSYCH: Normal mood, normal affect. SKIN: Warm, Dry, normal turgor, no rashes or lesions noted. Course - Re-evaluation Re-evalutation: 01/06/19 19:20 Afebrile hypertensive, in no distress. Left forearm negative for osteomyelitis, fracture dislocation, patient given 1 g Rocephin IM, will send home with clindamycin course, area marked with a marker times daily, if the erythema extends out of marked area return to the ED for evaluation, take [id number] ibuprofen and Tylenol needed for pain control apply heat 20 minutes on 20 minutes off several times a day, keep elevated above the level of your heart. With primary care provider tomorrow. After performing a Medical Screening Examination, I estimate there is LOW risk for OPEN FRACTURE, COMPARTMENT SYNDROME, TENDON RUPTURE, ACUTE NEUROVASCULAR INJURY, or RETAINED FOREIGN BODY, thus I consider the discharge disposition reasonable. Also, there is no evidence or peritonitis, sepsis, or toxicity. I have reevaluated this patient multiple times and no significant life threatening changes are noted. The patient and I have discussed the diagnosis and risks, and we agree with discharging home with close follow-up with the understanding that symptoms and presentations can change. We also discussed returning to the Emergency Department immediately if new or worsening symptoms occur. We have discussed the symptoms which are most concerning (e.g., changing or worsening pain, fever, numbness, weakness, cool or painful digits) that necessitate immediate return. - Vital Signs Vital signs: Temp Pulse Resp BP Pulse Ox 97.9 F 90 16 144/85 H 100 01/06/19 13:18 01/06/19 13:18 01/06/19 13:18 01/06/19 13:18 01/06/19 13:18 Discharge - Discharge Clinical Impression: Cellulitis, Abscess Condition: Stable Disposition: HOME, SELF-CARE Instructions: MRSA Cellulitis ([facility]) Additional Instructions: The rash is likely due to infection of your skin. You need to take the antibiotics as prescribed. Do not stop even if the rash goes away until you have completed all the antibiotics. The area of redness was traced out here in the emergency department with a marking pen. You need to return to emergency department if the redness spreads outside of this area by more than 2 cm in any direction. You should also return if you develop fevers with temperature greater than 101, persistent vomiting, worsening pain, or have any other sy mptoms that are concerning to you. Return immediately for any new or worsening symptoms. Follow up with primary care provider, call tomorrow to make followup appointment. Prescriptions: RX: Clindamycin HCl 300 mg PO Q6H #28 capsule Referrals: ESDRAS BUNCH MD [ACTIVE STAFF] - Follow up tomorrow
--- NOTE | 2019-01-06 14:19 | RADIOLOGY REPORT (SQ) ---
EXAM DESCRIPTION: FOREARM LEFT COMPLETED DATE/TIME: 01/06/2019 2:08 pm REASON FOR STUDY: cellulitis of L forearm, hx of IV drug use COMPARISON: None. NUMBER OF VIEWS: Two views. TECHNIQUE: Two radiographic images acquired of the left forearm, including elbow and wrist in at [address] one projection. LIMITATIONS: None. FINDINGS: MINERALIZATION: Normal. BONES: No acute fracture or dislocation. No worrisome bone lesions. No significant osteophytes. SOFT TISSUES: No obvious swelling or foreign body. OTHER: No other significant finding. IMPRESSION: NEGATIVE STUDY OF THE LEFT FOREARM. TECHNICAL DOCUMENTATION: JOB ID: [id number] [email or web address]- All Rights Reserved Reading location - IP/workstation name: [email or web address]
== END 2019-01-06 14:48 | disposition home or self-care (01) ==
LOC: ER 12:50
DX: L03.114 Cellulitis of left upper limb (principal); L02.414 Cutaneous abscess of left upper limb; F17.200 Nicotine dependence, unspecified, uncomplicated; Z90.49 Acquired absence of other specified parts of digestive tract
CPT/HCPCS: 99283; 96372; 73090; J3490; J0696

== ENCOUNTER 2019-01-16 22:23 | Emergency (ER) | payer SELFPAY ==
[2019-01-16] MEDS ORDERED: LIDOCAINE 1% INJ-PF (10 MG/ML) 30 ML SDV INJ ONE (22:51)
[2019-01-16] MEDS ORDERED: ACETAMINOPHEN 325 MG TABLET PO ONE (22:51)
--- NOTE | 2019-01-16 23:06 | ER Document Report ---
ED General - General Chief Complaint: Fall Stated Complaint: FALL Time Seen by Provider: 01/16/19 22:41 Primary Care Provider: DONNA ZAMARRIPA MD [NO LOCAL MD] - Follow up in 3-5 days Mode of Arrival: Medic Information source: Patient, Emergency Med Personnel, [facility] Records Notes: 48-year-old male with hepatitis C, prescription drug abuse (on methadone) presents via EMS after falling out of a tree approximately 16 feet off the ground. Patient states that his strap came loose causing him to fall to the ground face first. Unclear whether there was a loss of consciousness. Patient complaining of headache, neck pain, right flank pain and right elbow pain. TRAVEL OUTSIDE OF THE [place] IN LAST 30 DAYS: No - HPI Onset: This evening Onset/Duration: Sudden Quality of pain: Throbbing Severity: Moderate Pain Level: 3 Associated symptoms: Body/muscle aches, Headache. denies: Nonproductive cough, Productive cough, Hurts to breath, Nausea, Vomiting, Shortness of breath Exacerbated by: Movement, Walking Relieved by: Denies Similar symptoms previously: No Recently seen / treated by doctor: No - Related Data Allergies/Adverse Reactions: No Known Allergies Allergy (Verified 01/06/19 12:55) Past Medical History - General Information source: Patient, [facility] Records - Social History Smoking Status: Current Every Day Smoker Cigarette use (# per day): Yes - 10 Smoking Education Provided: Yes - Smoking cessation counseling was provided for 4 minutes at the bedside Frequency of alcohol use: None Drug Abuse: Prescription drugs Lives with: Family Family History: CAD, DM, Hypertension - Past Medical History Cardiac Medical History: Denies: Hx Coronary Artery Disease, Hx DVT, Hx Heart Attack, Hx Hypertension, Hx Peripheral Vascular Disease Pulmonary Medical History: Reports: Hx Asthma Denies: Hx COPD, Hx Tuberculosis Neurological Medical History: Denies: Hx Seizures Endocrine Medical History: Denies: Hx Diabetes Mellitus Type 1, Hx Diabetes Mellitus Type 2, Hx Hyperthyroidism, Hx Hypothyroidism Renal/ Medical History: Denies: Hx End Stage Renal Disease, Hx Peritoneal Dialysis GI Medical History: Reports: Hx Cirrhosis - Hepatitis C, Hx Gastroesophageal Reflux Disease, Hx Hepatitis Musculoskeletal Medical History: Denies Hx Arthritis, Denies Hx Gout, Reports Hx Musculoskeletal Deformity, Reports Hx Musculoskeletal Trauma Skin Medical History: Denies Hx Eczema, Denies Hx Psoriasis Psychiatric Medical History: Denies: Hx Depression Infectious Medical History: Reports: Hx Hepatitis. Denies: Hx HIV, Hx MRSA Past Surgical History: Reports: Hx Cholecystectomy, Hx Orthopedic Surgery - Left hand - Immunizations Hx Diphtheria, Pertussis, Tetanus Vaccination: Yes Review of Systems - Review of Systems Notes: REVIEW OF SYSTEMS: CONSTITUTIONAL : Denies fever, chills, or sweats. Denies recent illness. Denies weight loss, recent hospitalizations. EENT: Denies visual changes, eye pain. Denies sore throat, oral lesions, difficulty swallowing. CARDIOVASCULAR: Denies chest pain. Denies palpitations. Denies lower extremity edema. RESPIRATORY: Denies cough. Denies shortness of breath, wheezing. GASTROINTESTINAL: + abdominal pain. Denies nausea, vomiting, or diarrhea. Denies blood in vomitus, stools, or per rectum. Denies black, tarry stools. Denies constipation. GENITOURINARY: Denies difficulty urinating, painful urination, frequency, blood in urine, testicular pain or penile discharge. MUSCULOSKELETAL: + back or neck pain or stiffness. Denies joint pain or swelling. SKIN: Denies rash, lesions or sores. HEMATOLOGIC : Denies easy bruising or bleeding. LYMPHATIC: Denies swollen glands. NEUROLOGICAL: Denies confusion or altered mental status. Denies loss of consciousness. Denies dizziness or lightheadedness. Denies headache. Denies weakness or paralysis. Denies problems difficulty with ambulation, slurred speech. Denies sensory loss, numbness, or tingling. Denies seizures. PSYCHIATRIC: Denies anxiety or stress. Denies depression, suicidal ideation, or Physical Exam - Vital signs Vitals: Temp Pulse Resp BP Pulse Ox 98.4 F 100 26 H 157/103 H 95 01/16/19 22:26 01/16/19 22:26 01/16/19 22:26 01/16/19 22:26 01/16/19 22:26 - Notes Notes: PHYSICAL EXAMINATION: GENERAL: Well-appearing, well-nourished and in no acute distress. GCS 15 HEAD: 3 cm laceration to the left eyebrow. EYES: Pupils equal round and reactive to light, extraocular movements intact, sclera anicteric, conjunctiva are normal. Left periorbital ecchymosis and swelling. ENT: Nares patent, oropharynx clear without exudates. Moist mucous membranes. No hemanotympanum . No blood in nares. No dental fracture NECK: Normal range of motion, supple without lymphadenopathy. Trachea midline. No midline tenderness. LUNGS: Breath sounds clear to auscultation bilaterally and equal. No wheezes rales or rhonchi. HEART: Regular rate and rhythm without murmurs. Pulses intact all throughout. ABDOMEN: Soft, nontender, nondistended abdomen. No guarding, no rebound. No masses appreciated. Musculoskeletal: Normal range of motion, no pitting or edema. No cyanosis. Hip non tender, stable. NEUROLOGICAL: Cranial nerves grossly intact. Normal speech, normal gait. Normal sensory, motor, and reflex exams. PSYCH: Normal mood, normal affect. SKIN: Multiple diffuse scabbed lesions. Course - Re-evaluation Re-evalutation: 01/17/19 05:49 Abdomen/Pelvis CT 01/16/19 22:50 IMPRESSION: 1. No evidence of acute intrathoracic disease. 2. No evidence of acute intra-abdominal or intrapelvic pathology. 3. Remote cholecystectomy. Cervical Spine CT 01/16/19 22:50 IMPRESSION: No acute fracture or subluxation. Chest CT 01/16/19 22:50 IMPRESSION: 1. No evidence of acute intrathoracic disease. 2. No evidence of acute intra-abdominal or intrapelvic pathology. 3. Remote cholecystectomy. Elbow X-Ray 01/16/19 22:50 IMPRESSION: Prominent olecranon spur with minor soft tissue swelling may reflect mild olecranon bursitis. No acute osseous abnormality copyright 2010 [employer]- All Rights Reserved Head CT 01/16/19 22:50 IMPRESSION: Facial fractures as described. No acute intracranial findings. Temp Pulse Resp BP Pulse Ox 98.1 F 77 17 148/79 H 100 01/17/19 02:20 01/17/19 02:20 01/17/19 02:20 01/17/19 02:20 01/17/19 02:20 48-year-old male with a history of hepatitis C, substance abuse presents after a fall out of a tree from approximately 16 feet. Patient reports that his harness broke causing him to fall face first onto the grass. Patient is unsure whether he lost consciousness. Exam is significant for left periorbital ecchymosis, a laceration over the left orbit and no swelling. Patient has no other obvious signs of trauma. CT of the chest, abdomen, pelvis and cervical spine are unremarkable. CT of the head shows a minimally displaced nasal bone fracture as well as a deformity of the medial wall of the left orbit and a fracture of the floor of the left orbit. There is no evidence of entrapment. I did speak to Dr Geoff Hoffman trauma surgeon on-call at [facility] who reviewed the films and patient's physical exam findings. At this time he recommends speaking to ENT. I did speak to Dr. Vargas on-call at [facility] who has agreed to see the patient in follow-up in his clinic. Afrin and Augmentin prescribed. Patient advised against forceful nose blowing. Because of his history of substance abuse we have avoided any narcotic medications for home. Patient's tetanus was updated. Laceration was repaired. Patient expresses understanding of his follow-up instructions. Patient was evaluated and treated as appropriate for the patient's presenting symptoms and complaint, with consideration of any critical or life threatening conditions that may be associated with their obtained history and exam as noted above. All results were discussed with patient . Patient provided the opportunity to ask questions, and express concerns. Patient was educated on treatments based on their presumed diagnosis as noted above. At this time we will discharge the patient with return precautions and follow-up recommendations. Verbal discharge instructions given a the bedside. Medication warnings reviewed. Patient is in agreement with this plan and has verbalized understanding of return precautions. After careful consideration I feel that that patient can be safely discharged from the emergency department, they were advised to followup with a primary care physician in 2-3 days. Dictation on this chart was performed using voice recognition software and may result in unintended grammatical, spelling, syntax or errors. - Vital Signs Vital signs: Temp Pulse Resp BP Pulse Ox 98.1 F 77 17 148/79 H 100 01/17/19 02:20 01/17/19 02:20 01/17/19 02:20 01/17/19 02:20 01/17/19 02:20 - Diagnostic Test Radiology reviewed: Image reviewed, Reports reviewed Discharge - Discharge Clinical Impression: Skin lesions Fall Qualifiers: Encounter type: initial encounter Qualified Code(s): W19.XXXA - Unspecified fall, initial encounter Laceration of left eyebrow Qualifiers: Encounter type: initial encounter Qualified Code(s): S01.112A - Laceration without foreign body of left eyelid and periocular area, initial encounter Left orbit fracture Qualifiers: Encounter type: initial encounter Fracture type: open Qualified Code(s): S02.82XB - Fracture of other specified skull and facial bones, left side, initial encounter for open fracture Left elbow contusion Qualifiers: Encounter type: initial encounter Qualified Code(s): S50.02XA - Contusion of left elbow, initial encounter Nasal bones, closed fracture Qualifiers: Encounter type: initial encounter Qualified Code(s): S02.2XXA - Fracture of nasal bones, initial encounter for closed fracture Hepatitis C Qualifiers: Viral hepatitis chronicity: unspecified Hepatic coma status: without hepatic coma Qualified Code(s): B19.20 - Unspecified viral hepatitis C without hepatic coma Condition: Good Disposition: HOME, SELF-CARE Instructions: Antibiotic Ointment Protection ([facility]), Contusion ([facility]), Laceration Care ([facility]) Additional Instructions: You have a fracture of your nose and left eye socket. Please do not blow your nose forcefully. Use Afrin for nasal congestion. I did speak to ENT on-call for [facility] who has agreed to see you in his clinic for follow- up. Please call his office at [phone]. You have been seen in the Emergency Department (ED) today following a fall. Your workup today did not reveal any injuries that require you to stay in the hospital. You can expect, though, to be stiff and sore for the next several days. You can take Tylenol 1000 mg every 6 hours as needed for pain. You can apply a hot pack or electric heating pad to the sore areas. You can also use topical "Aspercreme with lidocaine" to sore areas as needed. Please follow up with your primary care doctor as soon as possible regarding today's ED visit and your recent fall. Call your doctor or return to the ED if you develop a sudden or severe headache, confusion, slurred speech, facial droop, weakness or numbness in any arm or leg, extreme fatigue, vomiting more than two times, severe abdominal pain, or other symptoms that concern you. Prescriptions: Amox Tr/Potassium Clavulanate [Augmentin 875-125 Tablet] 1 tab PO BID 10 Days #20 tablet Ibuprofen [Motrin 600 Mg Tablet] 600 mg PO TID #15 tablet Forms: Elevated Blood Pressure Referrals: DONNA ZAMARRIPA MD [NO LOCAL MD] - Follow up in 3-5 days
--- NOTE | 2019-01-16 23:28 | RADIOLOGY REPORT (SQ) ---
EXAM DESCRIPTION: XR ELBOW 3 VIEWS COMPLETED DATE/TME: 01/16/2019 22:50 CLINICAL HISTORY: 48 years, Male, fall from 16 ft COMPARISON: None. NUMBER OF VIEWS: 4 TECHNIQUE: 4 view right elbow LIMITATIONS: None. FINDINGS: Negative for acute fracture or dislocation. No evidence for hemarthrosis or abnormal fat pads. Prominent olecranon spur. Minor adjacent soft tissue swelling. IMPRESSION: Prominent olecranon spur with minor soft tissue swelling may reflect mild olecranon bursitis. No acute osseous abnormality copyright 2010 [employer]- All Rights Reserved
--- NOTE | 2019-01-16 23:39 | RADIOLOGY REPORT (SQ) ---
CLINICAL HISTORY: fall from 16 ft COMPARISON: None. TECHNIQUE: CT HEAD WITHOUT IV CONTRAST on 01/16/2019 10:50 PM CDT This exam was performed according to our departmental dose-optimization program, which includes automated exposure control, adjustment of the mA and/or kV according to patient size and/or use of iterative reconstruction technique. FINDINGS: There is no acute hemorrhage, mass effect or midline shift. Tripp-white differentiation is preserved. There is no hydrocephalus. There is no significant volume loss for age. There are mildly displaced fractures of the nasal bones. There is deformity of the medial left orbital wall. There is a fracture of the left orbital floor as well. Orbits and globes are unremarkable. The paranasal sinuses are clear. Mastoid air cells are clear. IMPRESSION: Facial fractures as described. No acute intracranial findings.
--- NOTE | 2019-01-16 23:48 | RADIOLOGY REPORT (SQ) ---
CLINICAL HISTORY: fall from 16 ft COMPARISON: None. TECHNIQUE: CT CERVICAL SPINE WITHOUT IV CONTRAST on 01/16/2019 10:50 PM CDT This exam was performed according to our departmental dose-optimization program, which includes automated exposure control, adjustment of the mA and/or kV according to patient size and/or use of iterative reconstruction technique. FINDINGS: There is no acute fracture. Alignment is anatomic. There is mild diffuse facet arthritis. There is moderate narrowing of the C5-6 disc. Vertebral body heights are preserved. Soft tissues are unremarkable. IMPRESSION: No acute fracture or subluxation.
[2019-01-17] MEDS ORDERED: CEFAZOLIN 1 GM/D5W RTU 1 GM/50 ML RTUPB IV ONE (00:29)
--- NOTE | 2019-01-17 01:35 | RADIOLOGY REPORT (SQ) ---
EXAM: CT chest with intravenous contrast CT abdomen and pelvis with intravenous contrast CLINICAL DATA: 48-year-old male who fell from 16 feet. TECHNICAL DATA: CT imaging of the chest, abdomen and pelvis following intravenous contrast administration. Sagittal and coronal reconstructed images were performed. The CT study is performed according to ALARA (as low as reasonably achievable) or ALARA/IMAGE GENTLY, with automatic adjustment of mA and/or kV according to patient size. Performed on: 01/17/2019 at 12:50 AM Comparisons: CT abdomen and pelvis performed on 02/15/2018 FINDINGS: CHEST: Lungs:The lungs are well expanded and are clear. There are no pleural effusions. There is no pneumothorax. Heart: The heart is normal in size. There is no pericardial effusion. Mediastinum:The mediastinum is unremarkable. The mediastinal vessels are normal in caliber and contour. Bones:No acute osseous abnormalities are identified. Soft tissues:No focal soft tissue abnormalities are identified. Lymphadenopathy: No pathologic hilar, mediastinal or axillary lymphadenopathy is identified. ABDOMEN/PELVIS: Liver:The liver is normal in size and configuration. No focal hepatic abnormalities are identified. Liver attenuation is within normal limits. Spleen:The spleen is normal is size, configuration and attenuation. Gallbladder and bile duct: The gallbladder is surgically absent. There is no biliary ductal dilatation. Pancreas: The pancreas is grossly normal in size and configuration. Adrenal Glands:The adrenal glands are normal in size and configuration. Kidneys:The kidneys are normal in size and configuration. There is no evidence of hydronephrosis. There is no evidence of nephrolithiasis. No definite solid or cystic renal mass lesions are identified. Stomach:The stomach is grossly normal. There is no definite hiatal hernia. Bowel:The bowel gas pattern is non specific and non obstructive. Appendix: The appendix is normal. Free air:There is no evidence of free air. Free fluid: There is no evidence of free fluid. Vasculature: The aorta is normal in caliber and contour. The inferior vena cava is grossly unremarkable. Lymphadenopathy: No pathologic lymphadenopathy is identified. Bladder: The bladder is well distended and smooth in contour. Reproductive: The prostate gland is grossly within normal limits. Bones: No acute osseous abnormalities are identified. There is chronic degenerative disc disease at L3-L4. There is a stable focal area of sclerosis within the region of the right femoral neck. Soft tissues: No focal soft tissue abnormalities are identified. IMPRESSION: 1. No evidence of acute intrathoracic disease. 2. No evidence of acute intra-abdominal or intrapelvic pathology. 3. Remote cholecystectomy.
[2019-01-17] MEDS ORDERED: MORPHINE SULFATE 10 MG/ML INJ IM ONE (02:11)
[2019-01-17] MEDS ORDERED: KETOROLAC TROMETHAMINE INJ/PF 30 MG/1 ML SDV IV ONE (02:11)
[2019-01-17] MEDS ORDERED: OXYMETAZOLINE HCL 0.05% NASAL SPRAY 15 ML BOTTLE NASL ONE (02:14)
--- NOTE | 2019-01-17 02:19 | ER Document Report ---
Procedures - Laceration/Wound Repair Left eyebrow Wound length (cm): 3 Wound's Depth, Shape: Superficial Laceration pre-procedure: Sterile PPE donned Anesthetic type: 1% Lidocaine Wound explored: Clean Wound Debrided: Minimal Wound Repaired With: Sutures Suture Size/Type: 6:0, Nylon Layer Closure?: No
[2019-01-17 02:20] VITALS: BP 148/79
== END 2019-01-17 02:53 | disposition home or self-care (01) ==
LOC: ER 22:23
DX: S02.2XXA Fracture of nasal bones, initial encounter for closed fracture (principal); S02.19XA Other fracture of base of skull, initial encounter for closed fracture; S01.112A Laceration without foreign body of left eyelid and periocular area, initial encounter; S50.02XA Contusion of left elbow, initial encounter; R51 Headache; M54.2 Cervicalgia; R10.9 Unspecified abdominal pain; M25.521 Pain in right elbow; W14.XXXA Fall from tree, initial encounter; B19.20 Unspecified viral hepatitis C without hepatic coma; M77.9 Enthesopathy, unspecified; L98.9 Disorder of the skin and subcutaneous tissue, unspecified; J45.909 Unspecified asthma, uncomplicated; F19.10 Other psychoactive substance abuse, uncomplicated; Z79.891 Long term (current) use of opiate analgesic; F17.210 Nicotine dependence, cigarettes, uncomplicated; Z71.6 Tobacco abuse counseling; Z23 Encounter for immunization
CPT/HCPCS: 99283; 96372; 96374; 73080; 70450; 71260; 72125; 74177; 12013; J0690; J1885; J2270; J3490

== ENCOUNTER 2019-01-18 10:07 | Emergency (ER) | payer SELFPAY ==
[2019-01-18 10:12] VITALS: BP 163/98
== END 2019-01-18 10:18 | disposition left against medical advice (07) ==
LOC: ER 10:07
DX: Z53.21 Procedure and treatment not carried out due to patient leaving prior to being seen by health care provider (principal)

== ENCOUNTER 2019-02-19 09:18 | Emergency (ER) | payer SELFPAY ==
--- NOTE | 2019-02-19 10:08 | ER Document Report ---
HPI - HPI Patient complains to provider of: left foot injury Time Seen by Provider: 02/19/19 10:01 Onset: Yesterday Onset/Duration: Sudden Quality of pain: Achy Pain Level: 3 Context: Pt was cutting a tree and a limb fell on his foot yesterday. Patient was only wearing slides. Patient complains of left foot pain and swelling since then with bruising. Patient also reports a history of asthma and is requesting for a refill of his inhaler as he is out at this time. Patient denies any chest pain or shortness of breath. Associated Symptoms: Other - left foot pain. denies: Fever Exacerbated by: Movement, Walking Relieved by: Denies Similar symptoms previously: No Recently seen / treated by doctor: No - ROS ROS below otherwise negative: Yes Systems Reviewed and Negative: Yes All other systems reviewed and negative - RESPIRATORY Respiratory: DENIES: Coughing - REPRODUCTIVE Reproductive: DENIES: : - MUSCULOSKELETAL Musculoskeletal: REPORTS: Extremity pain - L foot, Swelling - DERM Skin Color: Ecchymosis Past Medical History - General Information source: Patient - Social History Smoking Status: Current Every Day Smoker Smoking Education Provided: Yes Frequency of alcohol use: None Drug Abuse: None Occupation: [employer] Family History: CAD, DM, Hypertension Patient has suicidal ideation: No Patient has homicidal ideation: No Pulmonary Medical History: Reports: Hx Asthma Neurological Medical History: Denies: Hx Seizures Renal/ Medical History: Denies: Hx End Stage Renal Disease, Hx Peritoneal Dialysis GI Medical History: Reports: Hx Cirrhosis - Hepatitis C, Hx Gastroesophageal Reflux Disease, Hx Hepatitis Musculoskeletal Medical History: Reports Hx Musculoskeletal Deformity, Reports Hx Musculoskeletal Trauma Skin Medical History: Denies Hx Eczema, Denies Hx Psoriasis Psychiatric Medical History: Denies: Hx Depression Infectious Medical History: Reports: Hx Hepatitis Past Surgical History: Reports: Hx Cholecystectomy, Hx Orthopedic Surgery - Left hand - Immunizations Hx Diphtheria, Pertussis, Tetanus Vaccination: Yes Vertical Provider Document - CONSTITUTIONAL Agree With Documented VS: Yes Exam Limitations: No Limitations General Appearance: WD/WN, No Apparent Distress - INFECTION CONTROL TRAVEL OUTSIDE OF THE [place] IN LAST 30 DAYS: No - HEENT HEENT: Atraumatic, Normocephalic - NECK Neck: Normal Inspection - RESPIRATORY Respiratory: No Respiratory Distress, Wheezing - scattered - CARDIOVASCULAR Cardiovascular: Regular Rate, Regular Rhythm Pulses: Normal: Dorsalis pedis - MUSCULOSKELETAL/EXTREMETIES Musculoskeletal/Extremeties: MAEW, Tender - Left foot tenderness over midfoot area, ecchymosis to distal metatarsals of left foot, Edema, Eccymosis - NEURO Level of Consciousness: Awake, Alert, Appropriate Motor/Sensory: No Motor Deficit - DERM Integumentary: Warm, Dry, No Rash Course - Re-evaluation Re-evalutation: 02/19/19 10:55 Discussed with patient concerned about possible hidden fracture. Will immobilize at this time and encourage outpatient follow-up with orthopedics for further evaluation. 02/19/19 11:02 Patient is requesting a refill of inhaler as he is out. - Vital Signs Vital signs: Temp Pulse Resp BP Pulse Ox 98.0 F 106 H 20 153/82 H 94 02/19/19 09:21 02/19/19 09:21 02/19/19 09:21 02/19/19 09:21 02/19/19 09:21 - Diagnostic Test Radiology reviewed: Image reviewed, Reports reviewed Discharge - Discharge Clinical Impression: Crush injury Sprain of left foot Qualifiers: Encounter type: initial encounter Qualified Code(s): S93.602A - Unspecified sprain of left foot, initial encounter Condition: Stable Disposition: HOME, SELF-CARE Instructions: Crush Injury ([facility]), Use of Crutches ([facility]), Splint Precautions ([facility]), Sprain ([facility]) Additional Instructions: Return immediately for any new or worsening symptoms Followup with your primary care provider, call tomorrow to make a followup appointment Take Tylenol or Motrin [id number] as needed for pain relief Follow-up with orthopedics for further evaluation, call today for an appointment Prescriptions: Albuterol Sulfate [Proair Hfa Inhalation Aerosol 8.5 gm Mdi] 2 puff IH Q4 PRN #1 mdi PRN Reason: Forms: Return to Work Referrals: [facility] ([facility] [Provider Group] - Follow up as needed
--- NOTE | 2019-02-19 10:34 | RADIOLOGY REPORT (SQ) ---
EXAM DESCRIPTION: FOOT LEFT COMPLETE COMPLETED DATE/TIME: 02/19/2019 10:26 am REASON FOR STUDY: tree limb fell on midfoot area COMPARISON: None. NUMBER OF VIEWS: Three views. TECHNIQUE: AP, lateral and oblique radiographic images acquired of the left foot. LIMITATIONS: None. FINDINGS: MINERALIZATION: Normal. BONES: No acute fracture or dislocation. No worrisome bone lesions. JOINTS: No effusions. SOFT TISSUES: No soft tissue swelling. No foreign body. OTHER: No other significant finding. IMPRESSION: NEGATIVE STUDY OF THE LEFT FOOT. NO RADIOGRAPHIC EVIDENCE OF ACUTE INJURY. TECHNICAL DOCUMENTATION: JOB ID: [id number] [employer]- All Rights Reserved Reading location - IP/workstation name: [email or web address]
[2019-02-19 11:16] VITALS: BP 148/80
== END 2019-02-19 11:16 | disposition home or self-care (01) ==
LOC: ER 09:18
DX: S93.602A Unspecified sprain of left foot, initial encounter (principal); W20.8XXA Other cause of strike by thrown, projected or falling object, initial encounter; Y93.H2 Activity, gardening and landscaping
CPT/HCPCS: 99283

== ENCOUNTER 2019-02-22 21:07 | Emergency (ER) | payer SELFPAY ==
[2019-02-22] MEDS ORDERED: ACETAMINOPHEN 325 MG TABLET ONE (21:16)
[2019-02-22] MEDS ORDERED: AZITHROMYCIN INJ 500 MG VIAL IV ONE (21:37)
[2019-02-22] MEDS ORDERED: RINGERS SOLUTION,LACTATED 1,000 ML IV ONE (21:37)
[2019-02-22] MEDS ORDERED: CEFTRIAXONE 2 GM/D5W RTU 2 GM/50 ML RTUPB IV ONE (21:39)
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
[2019-02-22] MEDS ORDERED: METHYLPREDNISOLONE INJ 125 MG/2 ML SDV IV ONE (21:47)
[2019-02-22 21:52] LABS: VENOUS BLOOD BASE EXCESS 2.1 mmol/L; VENOUS BLOOD HCO3 26.8 mmol/L (20-32); VENOUS BLOOD PH 7.42 (7.30-7.42)
[2019-02-22 21:54] LABS: ABSOLUTE BASOPHILS # (AUTO) 0.1 10^3/uL (0.0-0.2); ABSOLUTE EOSINOPHILS # (AUTO) 0.1 10^3/uL (0.0-0.6); ABSOLUTE LYMPHOCYTES (AUTO) 3.1 10^3/uL (0.5-4.7); ABSOLUTE MONOCYTES (AUTO) 0.8 10^3/uL (0.1-1.4); ABSOLUTE NEUT (AUTO) 9.4 10^3/uL (1.7-8.2); BASOPHILS % (AUTO) 0.7 % (0-2); EOSINOPHILS % (AUTO) 0.9 % (0-6); HEMATOCRIT 36.2 % (37.9-51.0); HEMOGLOBIN 12.3 g/dL (13.5-17.0); LYMPHOCYTES % (AUTO) 22.6 % (13-45); MEAN CORPUSCULAR HEMOGLOBIN 29.9 pg (27.0-33.4); MEAN CORPUSCULAR HGB CONC 33.9 g/dL (32.0-36.0); MEAN CORPUSCULAR VOLUME 88 fl (80-97); MONOCYTES % (AUTO) 6.1 % (3-13); PLATELET COUNT 381 10^3/uL (150-450); RED BLOOD COUNT 4.11 10^6/uL (4.35-5.55); RED CELL DISTRIBUTION WIDTH 13.5 % (11.5-14.0); SEGMENTED NEUTROPHILS % (AUTO) 69.7 % (42-78); TOTAL CELLS COUNTED % (AUTO) 100 %; WHITE BLOOD COUNT 13.5 10^3/uL (4.0-10.5)
[2019-02-22 22:06] LABS: ALBUMIN 3.8 g/dL (3.5-5.0); ALKALINE PHOSPHATASE 265 U/L (38-126); ANION GAP 9 (5-19); ASPARTATE AMINO TRANSFERASE 42 U/L (17-59); BILIRUBIN,DIRECT 0.2 mg/dL (0.0-0.4); BILIRUBIN,TOTAL 0.3 mg/dL (0.2-1.3); BLOOD UREA NITROGEN 11 mg/dL (7-20); CALCIUM 9.2 mg/dL (8.4-10.2); CARBON DIOXIDE 27 mmol/L (22-30); CHLORIDE 100 mmol/L (98-107); GLUCOSE 87 mg/dL (75-110); POTASSIUM 4.2 mmol/L (3.6-5.0); TOTAL PROTEIN 7.1 g/dL (6.3-8.2)
[2019-02-22 22:50] VITALS: BP 147/85
--- NOTE | 2019-02-22 22:56 | RADIOLOGY REPORT (SQ) ---
Chest single view on 02/22/2019 at 10:20 PM CLINICAL INDICATION: Fever, shortness of breath COMPARISON: 02/15/2018 FINDINGS: There has been development of patchy left mid lung opacity suggesting developing pneumonia. Lungs are otherwise clear. Cardiac, hilar and mediastinal contours are within normal limits. Pulmonary vascularity is within normal limits. IMPRESSION: Patchy left mid lung opacity suggesting developing pneumonia.
[2019-02-22 23:30] LABS: APPEARANCE,URINE SLIGHTLY-CLOUDY; BILIRUBIN,URINE NEGATIVE (NEGATIVE); COLOR,URINE YELLOW; GLUCOSE, URINE NEGATIVE (NEGATIVE); KETONES,URINE NEGATIVE (NEGATIVE); LEUKOCYTE ESTERASE,URINE NEGATIVE (NEGATIVE); NITRITE,URINE NEGATIVE (NEGATIVE); PROTEIN,URINE NEGATIVE (NEGATIVE); URINE SPECIFIC GRAVITY 1.014
--- NOTE | 2019-02-23 23:02 | EKG REPORT ---
SEVERITY:- OTHERWISE NORMAL ECG - SINUS TACHYCARDIA : Confirmed by: Rohith Varma 23-Feb-2019 23:02:11
== END 2019-02-22 23:52 | disposition left against medical advice (07) ==
LOC: ER 21:07
DX: J18.1 Lobar pneumonia, unspecified organism (principal); R06.02 Shortness of breath; R05 Cough; R53.81 Other malaise; J44.9 Chronic obstructive pulmonary disease, unspecified; F17.200 Nicotine dependence, unspecified, uncomplicated; J45.909 Unspecified asthma, uncomplicated
CPT/HCPCS: 93005; 36415; 87040; 87086; 85025; 87088; 80053; 81001; 87186; 82803; 83605; 83880; 71045; 93010; 94660; J2930; J7120; J0456; J0696